=== PATIENT | male | born 1965 | race Caucasian/White ===

== ENCOUNTER 2023-01-20 13:23 | Emergency (ER) | payer OTHER, SELFPAY ==
[2023-01-20 13:34] VITALS: BP 128/78; PULSE 68; RESP 20; TEMP 36.8; O2SAT 99; BMI 26.7
[2023-01-20] MEDS: ONDANSETRON 4 MG RAPDIS TABLET SL (14:02)
[2023-01-20 14:17] LABS: SARS-CoV-2 Ag POSITIVE (NEGATIVE)
--- NOTE | 2023-01-20 14:26 | ED.GENADUL1 ---
HPI - General Adult General Chief complaint: Nausea/Vomiting/Diarrhea Stated complaint: NAUSEA Time Seen by Provider: 01/20/23 13:35 Source: patient Mode of arrival: walk-in History of Present Illness HPI narrative: Patient presents with flu-like symptoms. He developed congestion, headache and body aches 3-4 days. Neg covid at symptoms onset. Developed nausea and vomiting yesterday. Cold symptoms have improved. Related Data Home Medications Medication Instructions Recorded Confirmed No Known Home Medications 01/20/23 01/20/23 Previous Rx's Medication Instructions Recorded ondansetron 4 mg disintegrating 4 mg PO Q6H PRN nausea and 01/20/23 tablet vomiting #20 tabs Allergies Allergy/AdvReac Type Severity Reaction Status Date / Time Penicillins Allergy Severe Verified 01/20/23 13:39 Exam Narrative Exam Narrative: Nurses notes and vital signs reviewed and patient is not hypoxic. AFEBRILE General: Well-appearing and in no apparent distress. Skin: Warm, dry, no pallor noted. No rash. Head: Normocephalic, atraumatic. Neck: Supple, non-tender. No meningismus. No cervical lymphadenopathy. Eye: Pupils are equal, round and EOMI. No scleral icterus. Ears, Nose, Mouth, and Throat: TM are clear, no posterior oropharynx erythema or nasal mucosal hypertrophy, uvula is mid-line Oral mucosa is moist Cardiovascular: Regular Rate and Rhythm without murmur, gallop or rub. Respiratory: No accessory muscle use or respiratory distress. Lungs are clear to auscultation, no wheezing, rales or rhonchi GI: Abdomen is soft, non-distended. Normal bowel sounds. No tenderness to palpation. No rebound, guarding, or rigidity noted. Neurological: A&O x4. No cranial nerve dysfunction observed. No truncal ataxia. Moves all extremities. Sensation intact. Psychiatric: Cooperative and interactive. Normal mood and affect. Constitutional Vital Signs, click to edit/add: Last Vital Signs Temp 98.3 F 01/20/23 13:34 Pulse 68 01/20/23 13:34 Resp 20 01/20/23 13:34 BP 128/78 01/20/23 13:34 Pulse Ox 99 01/20/23 13:34 O2 Del Method Room Air 01/20/23 13:34 Course Vital Signs Vital signs: Vital Signs Temperature 98.3 F 01/20/23 13:34 Pulse Rate 68 01/20/23 13:34 Respiratory Rate 20 01/20/23 13:34 Blood Pressure 128/78 01/20/23 13:34 Pulse Oximetry 99 01/20/23 13:34 Oxygen Delivery Method Room Air 01/20/23 13:34 Temperature 98.3 F 01/20/23 13:34 Pulse Rate 68 01/20/23 13:34 Respiratory Rate 20 01/20/23 13:34 Blood Pressure 128/78 01/20/23 13:34 Pulse Oximetry 99 01/20/23 13:34 Oxygen Delivery Method Room Air 01/20/23 13:34 Medical Decision Making MDM Narrative Medical decision making narrative: tested positive for Covid. He was given Zofran in the ED and discharged home with a prescription for more Zofran. Patient advised to rest, stay at home, practice social distancing, take Motrin and Tylenol for pain and fever if not allergic, stay well hydrated with Gatorade or similar drinks if vomiting or eat as tolerated if not and take any meds as prescribed. Reviewed reasons to return including rapid increase in respiratory rate, shortness of breath, confusion, inability to keep down sips of swallowed liquids for more than 24 hours. Asked patient to encourage any ill contacts to stay home and practice similar advice. Lab Data Labs: Lab Results 01/20/23 Range/Units 14:00 SARS-CoV-2 (PCR) Positive A (NEGATIVE) Discharge Plan Discharge Chief Complaint: Nausea/Vomiting/Diarrhea Clinical Impression: COVID, Nausea & vomiting Patient Disposition: Home, Self-Care Time of Disposition Decision: 14:25 Prescriptions / Home Meds: New ondansetron 4 mg tablet,disintegrating 4 mg PO Q6H PRN (Reason: nausea and vomiting) Qty: 20 0RF No Action No Known Home Medications Instructions: Acute Nausea and Vomiting (ED), COVID-19 (Coronavirus Disease 2019) (ED) Stand Alone Forms: Portal Instructions Referrals: Physician,Non-Staff, MD [Primary Care Provider] - 1 week
== END 2023-01-20 14:44 | disposition home or self-care (01) ==
PROVIDERS: Emergency Provider Emergency Medicine
DX: R11.2 Nausea with vomiting, unspecified (principal); U07.1 COVID-19
CPT/HCPCS: 87811; 99283

== ENCOUNTER 2023-04-27 16:02 | Emergency (ER) | payer OTHER, SELFPAY ==
--- OUTSIDE RECORDS SUMMARY | 2023-04-27 16:12 | XMS_ITS | CCD ---
Author Organization [facility] Care Team Providers Care Recreation Director Name Role Phone VIPIN TORRES Unavailable Unavailable KLEPACZ, EBENEZER Rawls Admitting Unavailable KLEAPURVA, EBENEZER Rawls Attending Unavailable CHRISTELLE MUNIZ Referring Unavailable ROGER WAGNER Primary Care Unavailable YOKO BURRIS Consulting Unavailable YOKO BURRIS Admitting Unavailable YOKO BURRIS Attending Unavailable FAWWAD, TANG Primary Care Unavailable MARKER, DR AGUAYO Consulting Unavailable MARKER, DR AGUAYO Admitting Unavailable MARKER, DR AGUAYO Attending Unavailable REQUEST, DR DAVIS LISTED Primary Care UnavailGlo Bryant Consulting Unavailable FAWWAD, TANG Primary Care Unavailable FAWWAD, TANG Admitting Unavailable FAWWAD, TANG Attending Unavailable FAWWAD, TANG Admitting Unavailable FAWWAD, TANG Attending Unavailable FAWWAD, TANG Primary Care Unavailable FAWWAD, TANG Admitting Unavailable FAWWAD, TANG Primary Care Unavailable FAWWAD, TANG Attending Unavailable FAWWAD, TANG Admitting Unavailable SELENE, DR IBAN Rawls Consulting Unavailable FAWWAD, TANG Attending Unavailable FAWWAD, TANG Primary Care Unavailable FAWWAD, TANG Consulting Unavailable FAWWAD, TANG Admitting Unavailable FAWWAD, TANG Attending Unavailable FAWWAD, TANG Consulting Unavailable FAWWAD, TANG Primary Care Unavailable Allergies Allergy Classification Reported Allergen(s) Allergy Type Date of Onset Reaction(s) Facility (1 source) Penicillin Drug Allergy 05-30-2018 [facility] Repository (2 sources) Penicillins Drug allergy (disorder) 10-29-2015 [facility] Repository Problems Active Problems Problem Classification Problem Date Documented Date Episodic/Chronic Abdominal pain (3 sources) Unspecified abdominal pain; Translations: [UNSPECIFIED ABDOMINAL PAIN] Onset: 04-28-2021 Episodic Calculus of urinary tract (4 sources) Calculus of kidney; Translations: [CALCULUS OF KIDNEY] Onset: 05-23-2021 Episodic Other aftercare (1 source) Other fruit or nut picker (current) drug therapy; Translations: [OTH SENIOR CARE CURRENT DRUG THERAPY] Onset: 04-29-2021 Episodic Spondylosis; intervertebral disc disorders; other back problems (2 sources) Other intervertebral disc degeneration, lumbosacral region; Translations: [Other intervertebral disc degeneration, lumbar region] Onset: 01-06-2021 Chronic Sprains and strains (1 source) Strain of muscle, fascia and tendon of lower back, initial encounter; Translations: [Strain of muscle, fascia and tendon of lower back, initial encounter] Onset: 02-12-2018 Episodic Substance-related disorders (1 source) Nicotine dependence, cigarettes, uncomplicated; Translations: [NICOTINE DEPEND CIGARETTES UNCOMP] Onset: 04-29-2021 Chronic Unclassified (2 sources) LOW BACK PAIN, UNSPECIFIED; Translations: [LOW BACK PAIN, UNSPECIFIED] Onset: 01-06-2021 Viral infection (1 source) Viral infection, unspecified; Translations: [VIRAL INFECTION UNSPECIFIED] Onset: 04-29-2021 Episodic Past or Other Problems Problem Classification Problem Date Documented Da te Episodic/Chronic Spondylosis; intervertebral disc disorders; other back problems (2 sources) Radiculopathy, lumbar region; Translations: [Lumbago with sciatica, right side] Onset: 01-06-2021 Episodic Unclassified (1 source) LOW BACK PAIN, UNSPECIFIED; Translations: [LOW BACK PAIN, UNSPECIFIED] Onset: 01-05-2021 Results Test Name Value Interpretation Reference Range Facility CT ABD/PELVIS WO CONon 05-23 CT ABD/PELVIS WO CON EXAMINATION: CT ABD/PELVIS WO CON HISTORY: Kidney stone ; bilateral lower abdominal pain, left flank pain COMPARISON: CT abdomen pelvis 01/15/2019 TECHNIQUE: Axial, Coronal, and Sagittal CT images of the abdomen and pelvis were created without IV contrast material. Dose reduction techniques were achieved by using automated exposure control and/or adjustment of mA and/or kV according to patient size and/or use of iterative reconstruction technique. FINDINGS: KIDNEY - RIGHT: Contains a nonobstructing 4 mm stone. URETER - RIGHT: No calcifications or abnormal dilation. KIDNEY - LEFT: Several nonobstructing stones within inferior pole, largest is 7 mm. URETER - LEFT: No calcifications or abnormal dilation. URINARY BLADDER: No calculus, visible focal wall thickening, or lesion. LUNG BASES: No visible pulmonary or pleural disease. LIVER: No enlargement, atrophy, abnormal density, or significant focal lesion. BILIARY: No visible dilatation or calcification. PANCREAS: No lesion, fluid collection, ductal dilatation, or atrophy. SPLEEN: No enlargement or focal lesion. ADRENALS: No mass or enlargement. BOWEL/MESENTERY: No visible mass, obstruction, or bowel wall thickening. Normal appendix. AORTA/VASCULAR: No aneurysm. RETROPERITONEUM: No mass or adenopathy. LYMPH NODES: No adenopathy. PELVIC ORGANS: No visible mass. Pelvic organs appropriate for patient age. ABDOMINAL WALL: No mass or hernia. BONES: L5-S1 marked degenerative disc disease. No bony lesion or fracture. OTHER: Negative. IMPRESSION: 1. Bilateral nonobstructing nephrolithiasis. No acute findings. 2. No acute or suspicious bowel findings. 3. L5-S1 marked degenerative disc disease. Electronically authenticated by: IBAN MORTON Date: 2021-05-23 11:44 Normal [facility] LEAD,ADULTon 04-30-2021 Lead, Blood (Adult) 5 ug/dL Critically high 0-4 [facility] Comment on above: Result Comment: Anal ysis by inductively coupled plasma/mass spectrometry (ICP/MS) Environmental Exposure: WHO Recommendation <20 Occupational Exposure: OSHA Lead Std 40 MIGUEL A 30 . Detection Limit = 1 Performed By: #### L EADA #### [facility] [address] [place] [address] Dr. Kena Peterson CBC AUTO DIFFon 04-28-2021 BASO # 0.0 103/ul Normal 0.0-0.1 [facility] Comment on above: Performed By: #### C BC #### [facility] [address] [place] [address] Dr. Kena Peterson Basophils/100 WBC (Bld) 0.5 % Normal 0.2-2.0 [facility] Comment on above: Performed By: #### C BC #### [facility] [address] [place] [address] Dr. Kena Peterson EO # 0.4 103/ul Normal 0.0-0.7 [facility] Comment on above: Performed By: #### C BC #### [facility] [address] [place] [address] Dr. Kena Peterson Eosinophils/100 WBC (Bld) 4.5 % Normal 0.9-7.0 [facility] Comment on above: Performed By: #### C BC #### [facility] [address] [place] [address] Dr. Kena Peterson Erythrocyte distribution width (RBC) [Ratio] 12.2 % Normal 11.0-15.0 [facility] Comment on above: Performed By: #### C BC #### [facility] [address] [place] [address] Dr. Kena Peterson Hematocrit (Bld) [Volume fraction] 40.2 % Critically low 42.0-54.0 [facility] Comment on above: Performed By: #### C BC #### [facility] [address] [place] [address] Dr. Kena Peterson Hemoglobin (Bld) [Mass/Vol] 13.3 g/dL Critically low 14.0-18.0 [facility] Comment on above: Performed By: #### C BC #### [facility] [address] [place] [address] Dr. Kena Peterson IG # 0.02 10e3/ul Normal 0.00-0.03 [facility] Comment on above: Performed By: #### C BC #### [facility] [address] [place] [address] Dr. Kena Peterson IG % 0.2 % Normal 0.0-0.5 [facility] Comment on above: Performed By: #### C BC #### [facility] [address] [place] [address] Dr. Kena Peterson LYMPH # 2.3 103/ul Normal 1.2-3.8 [facility] Comment on above: Performed By: #### C BC #### [facility] [address] [place] [address] Dr. Kena Peterson Lymphocytes/100 WBC (Bld) 26.8 % Normal 20.5-60.0 [facility] Comment on above: Performed By: #### C BC #### [facility] [address] [place] [address] Dr. Kena Peterson MANUAL DIFF REQ NO Normal [facility] Comment on above: Performed By: #### C BC #### [facility] [address] [place] [address] Dr. Kena Peterson MCH (RBC) [Entitic mass] 29.3 pg Normal 25.9-34.0 [facility] Comment on above: Performed By: #### C BC #### [facility] [address] [place] [address] Dr. Kena Peterson MCHC (RBC) [Mass/Vol] 33.1 g/dL Normal 29.9-35.2 [facility] Comment on above: Performed By: #### C BC #### [facility] [address] [place] [address] Dr. Kena Peterson MCV (RBC) [Entitic vol] 88.5 fL Normal 80.0-94.0 [facility] Comment on above: Performed By: #### C BC #### [facility] [address] [place] [address] Dr. Kena Peterson MONO # 0.7 103/ul Normal 0.3-0.8 [facility] Comment on above: Performed By: #### C BC #### [facility] [address] [place] [address] Dr. Kena Peterson Monocytes/100 WBC (Bld) 7.7 % Normal 1.7-12.0 [facility] Comment on above: Performed By: #### C BC #### [facility] [address] [place] [address] Dr. Kena Peterson NEUT # 5.1 103/ul Normal 1.4-6.5 [facility] Comment on above: Performed By: #### C BC #### [facility] [address] [place] [address] Dr. Kena Peterson Neutrophils/100 WBC (Bld) 60.3 % Normal 43.0-75.0 [facility] Comment on above: Performed By: #### C BC #### [facility] [address] [place] [address] Dr. Kena Peterson Platelet mean volume (Bld) [Entitic vol] 9.9 fL Normal 9.5-13.5 [facility] Comment on above: Performed By: #### C BC #### [facility] [address] [place] [address] Dr. Kena Peterson PLT 215 103/ul Normal 150-450 [facility] Comment on above: Performed By: #### C BC #### [facility] [address] [place] [address] Dr. Kena Peterson RBC 4.54 106/ul Critically low 4.70-6.10 [facility] Comment on above: Performed By: #### C BC #### [facility] [address] [place] [address] Dr. Kena Peterson WBC 8.4 103/ul Normal 4.0-11.0 [facility] Comment on above: Performed By: #### C BC #### [facility] [address] [place] [address] Dr. Kena Peterson ER URINE PROFILEon 2 Bilirubin Ql (U) Negative Normal NEGATIVE [facility] Comment on above: Performed By: #### E RUR #### [facility] [address] [place] [address] Dr. Kena Peterson Clarity (U) CLEAR Normal CLEAR [facility] Comment on above: Performed By: #### E RUR #### [facility] [address] [place] [address] Dr. Kena Peterson Color (U) LT. YELLOW Normal YELLOW [facility] Comment on above: Performed By: #### E RUR #### [facility] [address] [place] [address] Dr. Kena SILVA A micrscopic examination will be performed if indicated. Normal [facility] Comment on above: Performed By: #### E RUR #### [facility] [address] [place] [address] Dr. Kena Peterson Glucose Ql (U) Negative Normal NEGATIVE [facility] Comment on above: Performed By: #### E RUR #### [facility] [address] [place] [address] Dr. Kena Peterson Hemoglobin Ql (U) Negative Normal NEGATIVE [facility] Comment on above: Performed By: #### E RUR #### [facility] [address] [address] [address] Kena Peterson Ketones Ql (U) Negative Normal NEGATIVE [facility] Comment on above: Performed By: #### E RUR #### [facility] [address] [place] [address] Dr. Kena Peterson LEUKOCYTES Negative Normal NEGATIVE [facility] Comment on above: Performed By: #### E RUR #### [facility] [address] [place] [address] Dr. Kena Peterson Nitrite Ql (U) Negative Normal NEGATIVE [facility] Comment on above: Performed By: #### E RUR #### [facility] [address] [place] [address] Dr. Kena Peterson pH (U) 7.0 [pH] Normal 5-9 [facility] Comment on above: Performed By: #### E RUR #### [facility] [address] [place] [address] Dr. Kena Peterson SPEC GRAVITY 1.010 Normal 1.005-<=1.025 [facility] Comment on above: Performed By: #### E RUR #### [facility] [address] [place] [address] Dr. Kena Peterson UA PROTEIN Negative Normal NEGATIVE/ TRACE [facility] Comment on above: Performed By: #### E RUR #### [facility] [address] [place] [address] Dr. Kena Peterson UR MICRO IND NOT INDICATED Normal [facility] Comment on above: Performed By: #### E RUR #### [facility] [address] [place] [address] Dr. Kena Peterson Urobilinogen Qn (U) 0.2 {Brian'U}/dL Normal 0.2 - 1. 0 [facility] Comment on above: Performed By: #### E RUR #### [facility] [address] [address] [address] Kena Peterson PROF CHEM 8 (BAS METB)on Anion gap [Moles/Vol] 11.4 mmol/L Normal [facility] Comment on above: Performed By: #### B MP #### [facility] [address] [address] [address] Kena Peterson Calcium [Mass/Vol] 8.8 mg/dL Normal 8.5-10.1 [facility] Comment on above: Performed By: #### B MP #### [facility] [address] [place] [address] Dr. Kena Peterson Chloride [Moles/Vol] 100 mmol/L Normal 98-107 [facility] Comment on above: Performed By: #### B MP #### [facility] [address] [place] [address] Dr. Kena Peterson CO2 [Moles/Vol] 31.9 mmol/L Critically high 22.0-30.0 [facility] Comment on above: Performed By: #### B MP #### [facility] [address] [place] [address] Dr. Kena Peterson Creatinine [Mass/Vol] 0.96 mg/dL Normal 0.66-1.25 [facility] Comment on above: Performed By: #### B MP #### [facility] [address] [place] [address] Dr. Kena Peterson EGFR-AF AFGHAN >60 Normal >=60 [facility] Comment on above: Performed By: #### B MP #### [facility] [address] [place] [address] Dr. Kena Peterson EGFR-NON AF AFGHAN >60 Normal >=60 [facility] Comment on above: Performed By: #### B MP #### [facility] [address] [place] [address] Dr. Kena Peterson Glucose [Mass/Vol] 101 mg/dL Normal 74-106 [facility] Comment on above: Performed By: #### B MP #### [facility] [address] [place] [address] Dr. Kena Peterson Potassium [Moles/Vol] 4.3 mmol/L Normal 3.4-5.0 [facility] Comment on above: Performed By: #### B MP #### [facility] [address] [place] [address] Dr. Kena Peterson Sodium [Moles/Vol] 139 mmol/L Normal 137-145 [facility] Comment on above: Performed By: #### B MP #### [facility] [address] [place] [address] Dr. Kena Peterson Urea nitrogen [Mass/Vol] 8.0 mg/dL Normal 7.0-18.0 [facility] Comment on above: Performed By: #### B MP #### [facility] [address] [place] [address] Dr. Kena Peterson Urea nitrogen/Creatinine [Mass ratio] 8.3 mg/mg Normal [facility] Comment on above: Performed By: #### B MP #### [facility] [address] [place] [address] Dr. Kena Peterson CBC AUTO DIFFon 01-12-2021 BASO # 0.0 103/ul Normal 0.0-0.1 [facility] Comment on above: Performed By: #### C BC #### [facility] [address] [place] [address] Dr. Kena Peterson Basophils/100 WBC (Bld) 0.4 % Normal 0.2-2.0 [facility] Comment on above: Performed By: #### C BC #### [facility] [address] [place] [address] Dr. Kena Peterson EO # 0.1 103/ul Normal 0.0-0.7 [facility] Comment on above: Performed By: #### C BC #### [facility] [address] [place] [address] Dr. Kena Peterson Eosinophils/100 WBC (Bld) 1.3 % Normal 0.9-7.0 [facility] Comment on above: Performed By: #### C BC #### [facility] [address] [place] [address] Dr. Kena Peterson Erythrocyte distribution width (RBC) [Ratio] 13.4 % Normal 11.0-15.0 [facility] Comment on above: Performed By: #### C BC #### [facility] [address] [place] [address] Dr. Kena Peterson Hematocrit (Bld) [Volume fraction] 41.1 % Critically low 42.0-54.0 [facility] Comment on above: Performed By: #### C BC #### [facility] [address] [place] [address] Dr. Kena Peterson Hemoglobin (Bld) [Mass/Vol] 13.5 g/dL Critically low 14.0-18.0 [facility] Comment on above: Performed By: #### C BC #### [facility] [address] [place] [address] Dr. Kena Peterson IG # 0.03 10e3/ul Normal 0.00-0.03 [facility] Comment on above: Performed By: #### C BC #### [facility] [address] [place] [address] Dr. Kena Peterson IG % 0.3 % Normal 0.0-0.5 [facility] Comment on above: Performed By: #### C BC #### [facility] [address] [place] [address] Dr. Kena Peterson LYMPH # 2.7 103/ul Normal 1.2-3.8 [facility] Comment on above: Performed By: #### C BC #### [facility] [address] [place] [address] Dr. Kena Peterson Lymphocytes/100 WBC (Bld) 29.4 % Normal 20.5-60.0 [facility] Comment on above: Performed By: #### C BC #### [facility] [address] [place] [address] Dr. Kena Peterson MANUAL DIFF REQ NO Normal [facility] Comment on above: Performed By: #### C BC #### [facility] [address] [place] [address] Dr. Kena Peterson MCH (RBC) [Entitic mass] 28.9 pg Normal 25.9-34.0 [facility] Comment on above: Performed By: #### C BC #### [facility] [address] [place] [address] Dr. Kena Peterson MCHC (RBC) [Mass/Vol] 32.8 g/dL Normal 29.9-35.2 [facility] Comment on above: Performed By: #### C BC #### [facility] [address] [place] [address] Dr. Kena Peterson MCV (RBC) [Entitic vol] 88.0 fL Normal 80.0-94.0 [facility] Comment on above: Performed By: #### C BC #### [facility] [address] [place] [address] Dr. Kena Peterson MONO # 0.6 103/ul Normal 0.3-0.8 [facility] Comment on above: Performed By: #### C BC #### [facility] [address] [place] [address] Dr. Kena Peterson Monocytes/100 WBC (Bld) 6.9 % Normal 1.7-12.0 [facility] Comment on above: Performed By: #### C BC #### [facility] [address] [place] [address] Dr. Kena Peterson NEUT # 5.7 103/ul Normal 1.4-6.5 [facility] Comment on above: Performed By: #### C BC #### [facility] [address] [place] [address] Dr. Kena Peterson Neutrophils/100 WBC (Bld) 61.7 % Normal 43.0-75.0 [facility] Comment on above: Performed By: #### C BC #### [facility] [address] [place] [address] Dr. Kena Peterson Platelet mean volume (Bld) [Entitic vol] 10.5 fL Normal 9.5-13.5 [facility] Comment on above: Performed By: #### C BC #### [facility] [address] [place] [address] Dr. Kena Peterson PLT 268 103/ul Normal 150-450 [facility] Comment on above: Performed By: #### C BC #### [facility] [address] [address] [address] Kena Peterson RBC 4.67 106/ul Critically low 4.70-6.10 [facility] Comment on above: Performed By: #### C BC #### [facility] [address] [address] [address] Kena Peterson WBC 9.2 103/ul Normal 4.0-11.0 [facility] Comment on above: Performed By: #### C BC #### [facility] [address] [place] [address] Dr. Kena Peterson PROF 14(COMP METB)on 021 Albumin [Mass/Vol] 3.9 g/dL Normal 3.5-5.0 [facility] Comment on above: Performed By: #### C MP #### [facility] [address] [place] [address] Dr. Kena Peterson Albumin/Globulin [Mass ratio] 1.0 {ratio} Normal [facility] Comment on above: Performed By: #### C MP #### [facility] [address] [place] [address] Dr. Kena Peterson ALP [Catalytic activity/Vol] 89 U/L Normal 38-126 [facility] Comment on above: Performed By: #### C MP #### [facility] [address] [place] [address] Dr. Kena Peterson ALT [Catalytic activity/Vol] 32 U/L Normal 21-72 [facility] Comment on above: Performed By: #### C MP #### [facility] [address] [place] [address] Dr. Kena Peterson Anion gap [Moles/Vol] 13.8 mmol/L Normal [facility] Comment on above: Performed By: #### C MP #### [facility] [address] [address] [address] Kena Peterson AST [Catalytic activity/Vol] 12 U/L Critically low 17-59 [facility] Comment on above: Performed By: #### C MP #### [facility] [address] [address] [address] Kena Peterson Bilirubin [Mass/Vol] 0.1 mg/dL Critically low 0.2-1.3 [facility] Comment on above: Performed By: #### C MP #### [facility] [address] [address] [address] Kena Peterson Calcium [Mass/Vol] 9.5 mg/dL Normal 8.4-10.2 [facility] Comment on above: Performed By: #### C MP #### [facility] [address] [address] [address] Kena Peterson Chloride [Moles/Vol] 107 mmol/L Normal 98-107 [facility] Comment on above: Performed By: #### C MP #### [facility] [address] [address] [address] Kena Peterson CO2 [Moles/Vol] 30.0 mmol/L Normal 22.0-30.0 [facility] Comment on above: Performed By: #### C MP #### [facility] [address] [address] [address] Kena Peterson Creatinine [Mass/Vol] 0.74 mg/dL Normal 0.66-1.25 [facility] Comment on above: Performed By: #### C MP #### [facility] [address] [address] [address] Kena Peterson EGFR-AF AFGHAN >60 Normal >=60 [facility] Comment on above: Performed By: #### C MP #### [facility] [facility] [address] [address] [address] Kena Peterson EGFR-NON AF AFGHAN >60 Normal >=60 [facility] Comment on above: Performed By: #### C MP #### [facility] [address] [address] [address] Kena Peterson Globulin (S) [Mass/Vol] 3.9 g/dL Normal [facility] Comment on above: Performed By: #### C MP #### [facility] [address] [address] [address] Kena Peterson Glucose [Mass/Vol] 144 mg/dL Critically high 74-106 [facility] Comment on above: Performed By: #### C MP #### [facility] [address] [address] [address] Kena Peterson Potassium [Moles/Vol] 3.8 mmol/L Normal 3.4-5.0 [facility] Comment on above: Performed By: #### C MP #### [facility] [address] [address] [address] Kena Peterson Protein [Mass/Vol] 7.8 g/dL Normal 6.1-8.2 [facility] Comment on above: Performed By: #### C MP #### [facility] [address] [address] [address] Kena Peterson Sodium [Moles/Vol] 147 mmol/L Critically high 137-145 [facility] Comment on above: Performed By: #### C MP #### [facility] [address] [address] [address] Kena Peterson Urea nitrogen [Mass/Vol] 9.0 mg/dL Normal 9.0-20.0 [facility] Comment on above: Performed By: #### C MP #### [facility] [address] [address] [address] Kena Peterson Urea nitrogen/Creatinine [Mass ratio] 12.2 mg/mg Normal [facility] Comment on above: Performed By: #### C MP #### [facility] [address] LSPINE WO CONon CT LSPINE WO CON EXAM: CT LSPINE WO CON 01/04/2021 11:31 PM EST OH001 CLINICAL STATEMENT: DORSALGIA, UNSPECIFIED COMPARISON: No prior studies are available at the time of dictation. TECHNIQUE: Helically acquired images were obtained of the lumbar spine without contrast. AEC is utilized. 2D reformatted images were reviewed FINDINGS: Multilevel degenerative changes are noted. Broad-based posterior asymmetric disc bulges at L2-L3 and L3 to L4 causing mild to moderate central canal and bilateral neural foraminal stenosis. Broad-based posterior disc protrusion at L4 L5 and L5-S1 causing moderate central canal and severe bilateral foraminal stenosis. Intervertebral disc space narrowing and vacuum phenomenon at L5-S1. Hypertrophic changes are noted of the posterior elements. There is normal anatomic alignment. There is no evidence of fracture or dislocation. There is no significant osseous narrowing of the central canal. There are no discrete paraspinal masses or collections. IMPRESSION: Multilevel degenerative changes. Broad-based posterior asymmetric disc bulges at L2-L3 and L3 to L4 causing mild to moderate central canal and bilateral neural foraminal stenosis. Broad-based posterior disc protrusion at L4 L5 and L5-S1 causing moderate central canal and severe bilateral foraminal stenosis. Intervertebral disc space narrowing and vacuum phenomenon at L5-S1. No acute fracture or dislocation FOLLOW-UP: Follow-up as clinically indicated. Electronically authenticated by: GLO ANGELA Date: 2021-01-05 00:59 Normal [facility] ARTERIAL BLOOD GAS W/COOXon 05-30-2018 BASE EXCESS 1 mmol/L Normal -2-3 [facility] Comment on above: Performed By: #### 4 0055 #### [facility] [address] [place] [address], [facility] COHB 1.9 % High 0.0-1.5 [facility] Comment on above: Performed By: #### 4 0055 #### [facility] [address] [place] [address], [facility] DELIVERY SYSTEMS VENTILATOR Normal [facility] Comment on above: Performed By: #### 4 0055 #### [facility] [address] [place] [address], [facility] FIO2 100 % Normal [facility] Comment on above: Performed By: #### 4 0055 #### [facility] [address] [place] [address], [facility] HCO3 (Bld) [Moles/Vol] 27 mmol/L Normal 21-28 [facility] Comment on above: Performed By: #### 4 0055 #### [facility] [address] [place] [address], [facility] METHB 0.9 % Normal 0.0-1.5 [facility] Comment on above: Performed By: #### 4 0055 #### [facility] [address] [place] [address], [facility] MIN VOLUME 7.5 Normal [facility] Comment on above: Performed By: #### 4 0055 #### [facility] [address] [place] [address], [facility] MODALITY AC-ASSIST CONTROL Normal [facility] Comment on above: Performed By: #### 4 0055 #### [facility] [address] [place], [place] [id number] [place] [address] Oxygen (Bld) [Partial pressure] 75 mm[Hg] Low 83-108 [facility] Comment on above: Performed By: #### 4 0055 #### [facility] [address] [place] [address], [facility] Oxygen saturation in Blood 93.1 % Low 94.0-97.0 [facility] Comment on above: Performed By: #### 4 0055 #### [facility] [address] [place] [address], [facility] PCO2 47 mmHg High 35-45 [facility] Comment on above: Performed By: #### 4 0055 #### [facility] [address] [place] [address], [facility] PEEP 8.0 CMH20 Normal [facility] Comment on above: Performed By: #### 4 5 #### [facility] [address] [place], [place] [id number] [place] [address] pH (Bld) 7.36 [pH] Normal 7.35-7.45 [facility] Comment on above: Result Comment: BRADFORD LIND NOTE: Effective 04/09/18, reference ranges for Respiratory GEM analyzers running arterial blood have been updated to reflect the sewing teacher's published reference ranges. Performed By: #### 4 0055 #### [facility] [address] [place] [address], [facility]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
[2023-04-27 16:15] VITALS: BP 126/91; PULSE 99; RESP 18; TEMP 36.6; O2SAT 99; BMI 24.9
--- NOTE | 2023-04-27 16:36 | ED_ITS ---
HPI - Abdominal Pain General Chief Complaint: Abdominal Pain Stated Complaint: Flank Pain Time Seen by Provider: 04/27/23 16:15 Source: patient Mode of arrival: walk-in History of Present Illness HPI narrative: Patient presents with right flank and right abdominal pain that began about a week ago. He said that the pain was worse today and since this morning he is having trouble passing urine. No fever or chills. No skin rash. Nausea and an episode of vomiting but no diarrhea. No relief with OTC meds at home. He has extensive history of kidney stones and last saw Dr Rojas and had renal stenting, he told me. Related Data Previous Rx's ?Medication ?Instructions ?Recorded nabumetone 750 mg tablet 750 mg PO BID PRN pain #20 tabs 04/27/23 Allergies Allergy/AdvReac Type Severity Reaction Status Date / Time Penicillins Allergy Severe Verified 01/20/23 13:39 Exam Narrative Exam Narrative: Nurses notes and vital signs reviewed and patient is not hypoxic. afebrile General: Well-appearing and in no apparent distress. Skin: Warm, dry, no pallor noted. No rash. Head: Normocephalic, atraumatic. Neck: Supple, non-tender. Eye: Pupils are equal, round and EOMI. No scleral icterus. Ears, Nose, Mouth, and Throat: Oral mucosa is moist Cardiovascular: Regular Rate and Rhythm without murmur, gallop or rub. Respiratory: No accessory muscle use or respiratory distress. Lungs are clear to auscultation, no wheezing, rales or rhonchi Back: Right CVA tenderness Musculoskeletal: normal ROM GI: Abdomen is soft, non-distended. Normal bowel sounds. Right abdominal tenderness to palpation. No rebound, guarding, or rigidity noted. Neurological: A&O x4. No cranial nerve dysfunction observed. No truncal ataxia. Moves all extremities. Sensation intact. Psychiatric: Cooperative and interactive. Normal mood and affect. Constitutional Vital Signs, click to edit/add: Last Vital Signs Temp 97.9 F 04/27/23 16:15 Pulse 99 H 04/27/23 16:15 Resp 18 04/27/23 16:15 BP 126/91 04/27/23 16:15 Pulse Ox 99 04/27/23 16:15 O2 Del Method Room Air 04/27/23 16:15 Course Vital Signs Vital signs: Vital Signs Temperature 97.9 F 04/27/23 16:15 Pulse Rate 99 H 04/27/23 16:15 Respiratory Rate 18 04/27/23 16:15 Blood Pressure 126/91 04/27/23 16:15 Pulse Oximetry 99 04/27/23 16:15 Oxygen Delivery Method Room Air 04/27/23 16:15 Temperature 97.9 F 04/27/23 16:15 Pulse Rate 99 H 04/27/23 16:15 Respiratory Rate 18 04/27/23 16:15 Blood Pressure 126/91 04/27/23 16:15 Pulse Oximetry 99 04/27/23 16:15 Oxygen Delivery Method Room Air 04/27/23 16:15 MDM - Abdominal Pain MDM Narrative Medical decision making narrative: Peripheral IV established and blood drawn and sent for testing. The patient was also ordered to have his urine sent for testing. He received normal saline IV fluid, IV Toradol and IV Dilaudid for pain. CBC normal. CMP normal. Lipase negative. He was not able to give us a urine sample. CT revealed nonobstructing 3 mm right renal calculus and multiple left-sided nonobstructing renal calculi measuring between 4 and 8 mm. No ureteral stones. No hydronephrosis or hydroureter. Results explained to the patient he was discharged home with recommendation to follow-up with urology. He was prescribed Relafen for outpatient use Lab Data Attestation: I reviewed the patient's lab results. Labs: Lab Results 04/27/23 Range/Units 17:00 WBC 8.1 (4.0-11.0) 10^3/uL RBC 4.39 L (4.70-6.10) 10^6/uL Hgb 12.8 L (14.0-18.0) g/dL Hct 39.4 L (42.0-54.0) % MCV 89.7 (80.0-94.0) fL MCH 29.2 (25.9-34.0) pg MCHC 32.5 (29.9-35.2) g/dL RDW 12.7 (11.0-15.0) % Plt Count 251 (150-450) 10^3/uL MPV 10.0 (9.5-13.5) fL Neut % (Auto) 67.0 (43.0-75.0) % Lymph % (Auto) 24.0 (20.5-60.0) % Wythe % (Auto) 6.3 (1.7-12.0) % Eos % (Auto) 2.0 (0.9-7.0) % Baso % (Auto) 0.5 (0.2-2.0) % Neut # (Auto) 5.4 (1.4-6.5) 10^3/uL Lymph # (Auto) 1.9 (1.2-3.8) 10^3/uL Wythe # (Auto) 0.5 (0.3-0.8) 10^3/uL Eos # (Auto) 0.2 (0.0-0.7) 10^3/uL Baso # (Auto) 0.0 (0.0-0.1) 10^3/uL Abs Immat Gran (auto) 0.02 (0.00-0.03) 10^3/uL Imm/Tot Granulo (auto) 0.2 (0.0-0.5) % Sodium 135 L (136-145) mmol/L Potassium 4.0 (3.5-5.1) mmol/L Chloride 99 (98-107) mmol/L Carbon Dioxide 30.1 (21.0-32.0) mmol/L Anion Gap 9.9 BUN 10.0 (7.0-18.0) mg/dL Creatinine 0.88 (0.70-1.30) mg/dL Est GFR ( Amer) >60 (>=60) Est GFR (Non-Af Amer) >60 (>=60) BUN/Creatinine Ratio 11.4 Glucose 138 H (74-106) mg/dL Calcium 9.2 (8.5-10.1) mg/dL Total Bilirubin 0.2 (0.2-1.0) mg/dL AST 17 (15-37) U/L ALT 22 (16-63) U/L Alkaline Phosphatase 98 (46-116) U/L Total Protein 7.8 (6.4-8.2) g/dL Albumin 3.7 (3.4-5.0) g/dL Globulin 4.1 g/dL Albumin/Globulin Ratio 0.9 Lipase 21.0 (16.0-77.0) U/L Imaging Data CT scan - abdomen: Attestation: I have reviewed the pertinent imaging results. Radiologist's impression: ITS Impressions Abdomen/Pelvis CT 04/27/23 17:28 IMPRESSION: Bilateral nonobstructive renal calculi measuring up to 8 mm on the left. Electronically authenticated by: ALIYAH GARRIDO Date: 04/27/2023 18:17 Discharge Plan Discharge Stand Alone Forms: Portal Instructions Chief Complaint: Abdominal Pain Clinical Impression: Calculus of kidney Patient Disposition: Home, Self-Care Time of Disposition Decision: 18:24 Prescriptions / Home Meds: New nabumetone 750 mg tablet 750 mg PO BID PRN (Reason: pain) Qty: 20 0RF Print Language: Belizean Instructions: Kidney Stones (ED) Referrals: Physician,Non-Staff, MD [Primary Care Provider] - 1 week
[2023-04-27 17:09] LABS: Basophils Percent Auto 0.5 % (0.2-2.0); Eosinophils Absolute Auto 0.2 10^3/uL (0.0-0.7); Hematocrit 39.4 % (42.0-54.0); Hemoglobin 12.8 g/dL (14.0-18.0); Immature Granulocytes Abs Auto 0.02 10^3/uL (0.00-0.03); Immature Granulocytes Pct Auto 0.2 % (0.0-0.5); Lymphocytes Absolute Auto 1.9 10^3/uL (1.2-3.8); Mean Corpuscular HGB Conc 32.5 g/dL (29.9-35.2); Mean Corpuscular Hemoglobin 29.2 pg (25.9-34.0); Mean Corpuscular Volume 89.7 fL (80.0-94.0); Monocytes Absolute Auto 0.5 10^3/uL (0.3-0.8); Monocytes Percent Auto 6.3 % (1.7-12.0); Neutrophils Absolute Auto 5.4 10^3/uL (1.4-6.5); Platelet Count 251 10^3/uL (150-450); Red Blood Count 4.39 10^6/uL (4.70-6.10); Red Cell Distribution Width 12.7 % (11.0-15.0); White Blood Count 8.1 10^3/uL (4.0-11.0)
[2023-04-27] MEDS: KETOROLAC TROMETHAMINE 30 MG/ML VIAL IVP (17:13)
[2023-04-27] MEDS: ONDANSETRON PF 4 MG/2 ML VIAL IV (17:13)
[2023-04-27] MEDS: HYDROMORPHONE HCL 0.5 MG/0.5 ML SYRINGE INJ (17:13)
[2023-04-27] MEDS: 0.9 % SODIUM CHLORIDE 1,000 ML 999 ML IV (17:14)
--- NOTE | 2023-04-27 17:28 | CT_ITS ---
[facility] [place] [id number] Patient Name: BHUPINDER ZIMMER MRN: [id number] date: 1965 Sex: M Assigned Patient Location: ER Current Patient Location: ER Accession/Order Number: [id number] Exam Date: 04/27/2023 17:24 Report Date: 04/27/2023 18:17 At the request of: JACK POTTER Procedure: CT abdomen pelvis wo con EXAMINATION: CT abdomen pelvis wo con, 04/27/2023 2:24 PM PDT HISTORY: right flank abd pain COMPARISON: 05/23/2021 TECHNIQUE: CT scan of the abdomen and pelvis was performed without IV contrast. CT dose reduction technique was used, including Automated Exposure Control. FINDINGS: Lung: No significant finding. Liver: No significant finding. Gallbladder: No significant finding. Spleen: No significant finding. Pancreas: No significant finding. Adrenal glands: No significant finding. Kidneys, ureters and bladder: There are 2 left-sided renal calculi adjacent to each other measuring approximately 7 and 8 mm each. Additional nonobstructive left sided renal calculus adjacent to these calculi measuring 4 mm. No hydronephrosis. Nonobstructive 3 mm right renal calculus. Bowel: No evidence of bowel obstruction. Normal appendix. Peritoneum/retroperitoneum: No significant finding. Lymph nodes: No significant finding. Vessels: Mild scattered atherosclerotic calcification. Body wall: No significant finding. Reproductive: No significant finding. Bones: No significant finding. CT/CT abdomen pelvis wo con IMPRESSION: Bilateral nonobstructive renal calculi measuring up to 8 mm on the left. Electronically authenticated by: ALIYAH GARRIDO Date: 04/27/2023 18:17
[2023-04-27 17:49] LABS: Alanine Aminotransferase 22 U/L (16-63); Albumin Globulin Ratio 0.9; Albumin Level 3.7 g/dL (3.4-5.0); Alkaline Phosphatase 98 U/L (46-116); Anion Gap 9.9; Aspartate Amino Transferase 17 U/L (15-37); BUN Creatinine Ratio 11.4; Bilirubin Total 0.2 mg/dL (0.2-1.0); Calcium 9.2 mg/dL (8.5-10.1); Carbon Dioxide 30.1 mmol/L (21.0-32.0); Chloride 99 mmol/L (98-107); Estimated GFR (African America >60 (>=60); Estimated GFR (Non-African Ame >60 (>=60); Globulin 4.1 g/dL; Glucose 138 mg/dL (74-106); Sodium 135 mmol/L (136-145); Total Protein 7.8 g/dL (6.4-8.2)
== END 2023-04-27 18:39 | disposition home or self-care (01) ==
PROVIDERS: Emergency Provider Emergency Medicine
DX: N20.0 Calculus of kidney (principal); Z87.442 Personal history of urinary calculi
CPT/HCPCS: 36415; 74176; 80053; 83690; 85025; 96374; 96375; 99284; J1170

== ENCOUNTER 2023-06-17 23:58 | Emergency (ER) | payer OTHER, SELFPAY ==
[2023-06-18] VITALS (49 sets, daily range): BP systolic 142–176; BP diastolic 88–127; PULSE 52–108; TEMP 36.6; O2SAT 97–100; BMI 24.5
--- OUTSIDE RECORDS SUMMARY | 2023-06-18 00:30 | XMS_ITS | CCD ---
Author Organization [facility] Care Team Providers Care Renal Dialysis Rn Name Role Phone VIPIN TORRES Unavailable Unavailable EBENEZER WILSON Admitting Unavailable EBENEZER WILSON Attending Unavailable CHRISTELLE MUNIZ Referring Unavailable ROGER [...] TANG Attending Unavailable FAWWAD, TANG Admitting Unavailable DR IBAN MORTON Consulting Unavailable FAWWAD, TANG Attending Unavailable FAWWAD, TANG Primary Care Unavailable FAWWAD, TANG Consulting Unavailable FAWWAD, TANG Admitting Unavailable FAWWAD, TANG Attending Unavailable FAWWAD, TANG Consulting Unavailable FAWWAD, TANG Primary Care Unavailable Loco SORIANO Attending Unavailable NO PCP, NO PCP Primary Care Unavailable MATEO BANDA Referring Unavailable NO PCP, NO PCP Primary Care Unavailable NO PCP, NO PCP Primary Care Unavailable RAFA BURDEN Attending Unavailable NO PCP, NO PCP Primary Care Unavailable IBAN ADAME Attending Unavailable AMBER GALVEZ Admitting Unavailable NO PCP, NO PCP Primary Care Unavailable Allergies Allergy Classification Reported Allergen(s) Allergy Type Date of Onset Reaction(s) Facility (1 source) Penicillin Drug Allergy 05-30-2018 [facility] Repository (4 sources) Penicillins; Translations: [PENICILLINS] Drug allergy (disorder) 10-29-2015 [facility] Repository (2 sources) Ibuprofen; Translations: [IBUPROFEN] Drug Allergy 12-17-2015 [facility] Repository Problems Active Problems Problem Classification Problem Date Documented Da te Episodic/Chronic Abdominal pain (4 sources) Unspecified abdominal pain; Translations: [Abdominal pain] Onset: 04-28-2021 Episodic Calculus of urinary tract (4 sources) Calculus of kidney; Translations: [CALCULUS OF KIDNEY] Onset: 05-23-2021 Episodic Cardiac dysrhythmias (1 source) Tachycardia, unspecified; Translations: [Tachycardia, unspecified] Onset: 05-22-2023 Episodic Fluid and electrolyte disorders (1 source) Hypokalemia; Translations: [Hypokalemia] Onset: 05-22-2023 Episodic Nausea and vomiting (2 sources) Nausea with vomiting, unspecified; Translations: [Vomiting] Onset: 05-17-2023 Episodic Other aftercare (1 source) 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; Translations: [OTH LONG-TERM CURRENT DRUG THERAPY] Onset: 04-29-2021 Episodic Other connective tissue disease (1 source) Cramp and spasm; Translations: [Cramp and spasm] Onset: 05-22-2023 Episodic Other gastrointestinal disorders (1 source) Diarrhea Onset: 05-17-2023 Episodic Other screening for suspected conditions (not mental disorders or infectious disease) (1 source) Other specified abnormal findings of blood chemistry; Translations: [Other specified abnormal findings of blood chemistry] Onset: 05-22-2023 Episodic Spondylosis; intervertebral disc disorders; other back problems (3 sources) Other intervertebral disc degeneration, lumbosacral region; Translations: [Other intervertebral disc degeneration, lumbar region] Onset: 01-06-2021 Chronic Spondylosis; intervertebral disc disorders; other back problems (4 sources) Radiculopathy, lumbar region; Translations: [Lumbago with sciatica, right side] Onset: 01-06-2021 Episodic Sprains and strains (1 source) Strain of muscle, fascia and tendon of lower back, initial encounter; Translations: [Strain of muscle, fascia and tendon of lower back, initial encounter] Onset: 02-12-2018 Episodic Substance-related disorders (1 source) Nicotine dependence, cigarettes, uncomplicated; Translations: [NICOTINE DEPEND CIGARETTES UNCOMP] Onset: 04-29-2021 Chronic Substance-related disorders (1 source) Opioid use, unspecified with withdrawal; Translations: [Opioid use, unspecified with withdrawal] Onset: 05-17-2023 Episodic Unclassified (2 sources) LOW BACK PAIN, UNSPECIFIED; Translations: [LOW BACK PAIN, UNSPECIFIED] Onset: 01-06-2021 Unclassified (1 source) lower back pain that radiates down right leg x1 month Onset: 06-13-2023 Unclassified (1 source) Medical Screening Onset: 06-14-2023 Unclassified (1 source) Spasms Onset: 05-22-2023 Unclassified (1 source) EMS Onset: 05-17-2023 Viral infection (1 source) Viral infection, unspecified; Translations: [VIRAL INFECTION UNSPECIFIED] Onset: 04-29-2021 Episodic Past or Other Problems Problem Classification Problem Date Documented Da te Episodic/Chronic Unclassified (1 source) LOW BACK PAIN, UNSPECIFIED; Translations: [LOW BACK PAIN, UNSPECIFIED] Onset: 01-05-2021 Results Test Name Value Interpretation Reference Range Facility CT LUMBAR SPINE WO CONTon CT LUMBAR SPINE WO CONT CT LUMBAR SPINE WO CONT CLINICAL HISTORY: A 57-year-old male with the history of the low back pain and sciatica. TECHNIQUE: Multidetector spiral CT scan of the lumbar spine is performed without intravenous contrast administration. Multiplanar reconstruction images are reformatted. All CT scans at this facility use dose modulation, iterative reconstruction, and/or weight based dosing when appropriate to reduce radiation dose to as low as reasonably achievable. COMPARISON: Comparison is made with the CT scan of the abdomen and pelvis of 04/05/2022. FINDINGS: There is no evidence of fracture or acute bony pathology in the lumbar vertebrae. Posterior elements are intact. Sagittal and coronal reconstruction imaging reveals normal vertebral heights. There is no evidence of compression fracture, spondylolysis or spondylolisthesis. There are spondylotic and disc degenerative changes in the lumbar spine with osteophytes formation and reduction of disc spaces at L4-L5 and L5-S1. There are posterior osteophytes at L5-S1 with spinal stenosis and narrowing of the neural foramina bilaterally. Sagittal and axial images reveal no evidence of antonio disc herniation. Facet joints are intact. Both sacroiliac joints are intact. No significant paravertebral soft tissue abnormality seen. There are nonobstructing bilateral intrarenal calcific calculi. Vascular calcifications are seen. IMPRESSION: 1. No evidence of fracture, spondylolisthesis or acute bony pathology in the lumbar spine. 2. Spondylotic and disc degenerative changes in the lumbar spine with osteophytes formation and reduction of disc spaces at L4-L5 and L5-S1. There is a spinal stenosis with narrowing of the neural foramina at L5-S1. 3. No evidence of antonio disc herniation in the lumbar region. 4. Incidental note is made of bilateral nonobstructing intrarenal calcific calculi. Finalized by Bhavik Mcguire MD on 06/13/2023 3:31 PM Normal [facility] BASIC METABOLIC PANLon 05-21 Anion gap [Moles/Vol] 4 mmol/L Low 5-15 [facility] Comment on above: Performed By: #### C CHRISTINE [facility], 3040-3 #### [facility] ([id number]) [address] [place] [address] 26632 Calcium [Mass/Vol] 8.3 mg/dL Low 8.5-10.5 [facility] Comment on above: Performed By: #### C CHRISTINE [facility], 3040-3 #### [facility] ([id number]) [address] [place] [address] 68410 Chloride [Moles/Vol] 109 mmol/L Normal 98-109 [facility] Comment on above: Performed By: #### C CHRISTINE CMP, 3040-3 #### [facility] ([id number]) [address] [place] [address] 78146 CO2 [Moles/Vol] 23 mmol/L Normal 22-32 [facility] Comment on above: Performed By: #### C CHRISTINE [facility], 3040-3 #### [facility] ([id number]) [address] [place] [address] 54720 Creatinine [Mass/Vol] 0.86 mg/dL Normal 0.70-1.20 [facility] Comment on above: Result Comment: METH OD TRACEABLE TO IDMS STANDARD Performed By: #### C ZEE KING, 3 #### [facility] ([id number]) [address] [place] [address] 94801 eGFR (CKD-EPI) NON-RACE DEPENDENT >90 Normal >59 [facility] Comment on above: Result Comment: Reported eGFR is based on the CKD-EPI 2020 equation that does not use a race coefficient. Performed By: #### C ZEE KING, 3 #### [facility] ([id number]) [address] [place] [address] 35486 Glucose [Mass/Vol] 82 mg/dL Normal 65-99 [facility] Comment on above: Performed By: #### C CHRISTINE [facility], 3 #### [facility] ([id number]) [address] [place] [address] 75585 Potassium [Moles/Vol] 3.6 mmol/L Normal 3.5-5.0 [facility] Comment on above: Performed By: #### C ZEE KING, 3 #### [facility] ([id number]) [address] [place] [address] 91600 Sodium [Moles/Vol] 136 mmol/L Normal 134-146 [facility] Comment on above: Performed By: #### C ZEE KING, 3 #### [facility] ([id number]) [address] [place] [address] 73099 Urea nitrogen [Mass/Vol] 17 mg/dL Normal 5-23 [facility] Comment on above: Performed By: #### C BCA, CMP, 3040-3 #### [facility] ([id number]) [address] [place] [address] 77205 CBC AND AUTO DIFFon 05-22-19 24 ABSOLUTE BASOPHIL 0.1 X10E9/L Normal 0.0-0.2 [facility] Comment on above: Performed By: #### C BCA, 53845-3, CMP, 5643-2, 67728-1, 2157- 6, 14591-0, 2639-3, 76974-4, THYR #### [facility] ([id number]) [address] [place] [address] 77073 ABSOLUTE NEUTROPHIL 8.6 X10E9/L High 1.5-6.6 [facility] Comment on above: Performed By: #### C BCA, 88783-0, CMP, 5643-2, 34411-0, 2157- 6, 59846-1, 2639-3, 53450-5, THYR #### [facility] ([id number]) [address] [place] [address] 28781 Basophils/100 WBC (Bld) 0.6 % Normal [facility] Comment on above: Performed By: #### C BCA, 76614-8, CMP, 5643-2, 78071-7, 2157- 6, 98827-0, 2639-3, 21925-6, THYR #### [facility] ([id number]) [address] [place] [address] 64787 Eosinophils (Bld) [#/Vol] 0.1 10*3/uL Normal 0.0-0.4 [facility] Comment on above: Performed By: #### C BCA, 28240-5, CMP, 5643-2, 54434-9, 2157- 6, 37877-5, 2639-3, 69305-7, THYR #### [facility] ([id number]) [address] [place] [address], [place] [address] Eosinophils/100 WBC (Bld) 0.7 % Normal [facility] Comment on above: Performed By: #### C BCA, 20898-3, CMP, 5643-2, 44577-4, 2157- 6, 76572-1, 2639-3, 85375-2, THYR #### [facility] ([id number]) [address] [place] [address] 58585 Erythrocyte distribution width (RBC) [Ratio] 13.2 % Normal 11.5-15.0 [facility] Comment on above: Performed By: #### C CHRISTINE, 15807-8, CMP, 5643-2, 12643-7, 2157- 6, 79188-4, 2639-3, 08866-8, THYR #### [facility] ([id number]) [address] [place] [address] 32593 Hematocrit (Bld) [Volume fraction] 38.7 % Low 39-49 [facility] Comment on above: Performed By: #### C BCA, 48479-1, CMP, 5643-2, 61413-5, 2157- 6, 79780-0, 2639-3, 82754-0, THYR #### [facility] ([id number]) [address] [place] [address] 53559 Hemoglobin (Bld) [Mass/Vol] 13.4 g/dL Normal 13.0-17.0 [facility] Comment on above: Performed By: #### C BCA, 48191-2, CMP, 5643-2, 19461-6, 2157- 6, 64421-5, 2639-3, 63361-6, THYR #### [facility] ([id number]) [address] [place] [address] 22696 Lymphocytes (Bld) [#/Vol] 2.1 10*3/uL Normal 1.0-3.5 [facility] Comment on above: Performed By: #### C BCA, 64255-2, CMP, 5643-2, 72253-2, 2157- 6, 65539-2, 2639-3, 25451-2, THYR #### [facility] ([id number]) [address] [place] [address] 91049 Lymphocytes/100 WBC (Bld) 18.2 % Normal [facility] Comment on above: Performed By: #### C BCA, 91375-9, CMP, 5643-2, 14532-3, 2157- 6, 34611-0, 2639-3, 59982-8, THYR #### [facility] ([id number]) [address] [place] [address] 85923 MCH (RBC) [Entitic mass] 29.3 pg Normal 27-34 [facility] Comment on above: Performed By: #### C BCA, 36333-6, CMP, 5643-2, 39452-6, 2157- 6, 95025-5, 2639-3, 44632-0, THYR #### [facility] ([id number]) [address] [place] [address] 95673 MCHC (RBC) [Mass/Vol] 34.5 g/dL Normal 32-36 [facility] Comment on above: Performed By: #### C BCA, 50692-8, CMP, 5643-2, 25058-6, 2157- 6, 06664-5, 2639-3, 80566-2, THYR #### [facility] ([id number]) [address] [place] [address] 71040 MCV (RBC) [Entitic vol] 85 fL Normal 80-100 [facility] Comment on above: Performed By: #### C BCA, 39380-7, CMP, 5643-2, 32794-7, 2157- 6, 19170-5, 2639-3, 08504-0, THYR #### [facility] ([id number]) [address] [place] [address] 57051 Monocytes (Bld) [#/Vol] 0.5 10*3/uL Normal 0-0.9 [facility] Comment on above: Performed By: #### C BCA, 77375-6, CMP, 5643-2, 73606-4, 2157- 6, 70813-8, 2639-3, 99472-8, THYR #### [facility] ([id number]) [address] [place] [address] 50307 Monocytes/100 WBC (Bld) 4.8 % Normal [facility] Comment on above: Performed By: #### C BCA, 80243-8, CMP, 5643-2, 07843-5, 2157- 6, 23933-7, 2639-3, 15329-3, THYR #### [facility] ([id number]) [address] [place] [address] 68902 Neutrophils/100 WBC (Bld) 75.7 % Normal [facility] Comment on above: Performed By: #### C BCA, 15072-2, CMP, 5643-2, 94322-1, 2157- 6, 93778-1, 2639-3, 24069-4, THYR #### [facility] ([id number]) [address] [place] [address] 81775 Platelet mean volume (Bld) [Entitic vol] 8.3 fL Normal 7-12 [facility] Comment on above: Performed By: #### C BCA, 81694-6, CMP, 5643-2, 80149-3, 2157- 6, 15646-2, 2639-3, 23063-5, THYR #### [facility] ([id number]) [address] [place] [address] 66269 Platelets (Bld) [#/Vol] 218 10*3/uL Normal 150-450 [facility] Comment on above: Performed By: #### C BCA, 03888-6, CMP, 5643-2, 16062-7, 2157- 6, 25228-6, 2639-3, 21834-9, THYR #### [facility] ([id number]) [address] [place] [address] 02469 RBC COUNT 4.56 X10E12/L Normal 4.10-5.70 [facility] Comment on above: Performed By: #### C BCA, 57574-8, CMP, 5643-2, 69844-6, 2157- 6, 99428-3, 2639-3, 99730-5, THYR #### [facility] ([id number]) [address] [place] [address] 77572 WBC (Bld) [#/Vol] 11.4 10*3/uL High 4.0-11.0 [facility] Comment on above: Performed By: #### C BCA, 88902-8, CMP, 5643-2, 11469-1, 2157- 6, 63136-7, 2639-3, 66610-0, THYR #### [facility] ([id number]) [address] [place] [address] 44367 CK [Catalytic activity/Vol]o n 05-22-2023 CPK 392 U/L High 24-195 [facility] Comment on above: Performed By: #### C BCA, 19009-9, CMP, 5643-2, 97352-3, 2157- 6, 86084-5, 2639-3, 29302-7, THYR #### [facility] ([id number]) [address] [place] [address] 16935 COMPREHENSIVE METABOLIC PANE Trent 05-22-2023 Albumin [Mass/Vol] 4.2 g/dL Normal 3.2-5.3 [facility] Comment on above: Performed By: #### C BCA, 66104-7, CMP, 5643-2, 38427-3, 2157- 6, 29716-3, 2639-3, 28468-1, THYR #### [facility] ([id number]) [address] [place] [address] [place] [address] ALP [Catalytic activity/Vol] 89 U/L Normal 39-130 [facility] Comment on above: Performed By: #### C BCA, 16148-6, CMP, 5643-2, 16194-6, 2157- 6, 34147-2, 2639-3, 25754-5, THYR #### [facility] ([id number]) [address] [place] [address] 06128 ALT [Catalytic activity/Vol] 29 U/L Normal 0-40 [facility] Comment on above: Performed By: #### C BCA, 60303-2, CMP, 5643-2, 45146-2, 2157- 6, 56229-7, 2639-3, 90665-7, THYR #### [facility] ([id number]) [address] [place] [address] [place] [address] Anion gap [Moles/Vol] 8 mmol/L Normal 5-15 [facility] Comment on above: Performed By: #### C BCA, 65826-0, CMP, 5643-2, 80003-5, 2157- 6, 94111-4, 2639-3, 40706-8, THYR #### [facility] ([id number]) [address] [place] [address] [place] [address] AST [Catalytic activity/Vol] 25 U/L Normal 0-41 [facility] Comment on above: Performed By: #### C BCA, 52037-2, CMP, 5643-2, 95591-5, 2157- 6, 64036-8, 2639-3, 59489-2, THYR #### [facility] ([id number]) [address] [place] [address], [place] [address] Bilirubin [Mass/Vol] 0.5 mg/dL Normal 0.3-1.2 [facility] Comment on above: Performed By: #### C BCA, 75034-3, CMP, 5643-2, 93380-5, 2157- 6, 50783-3, 2639-3, 83449-7, THYR #### [facility] ([id number]) [address] [place] [address] [place] [address] Calcium [Mass/Vol] 8.5 mg/dL Normal 8.5-10.5 [facility] Comment on above: Performed By: #### C BCA, 25902-2, CMP, 5643-2, 09045-9, 2157- 6, 04527-2, 2639-3, 35052-6, THYR #### [facility] ([id number]) [address] [place] [address] [place] [address] Chloride [Moles/Vol] 103 mmol/L Normal 98-109 [facility] Comment on above: Performed By: #### C BCA, 70991-1, CMP, 5643-2, 12133-0, 2157- 6, 45936-6, 2639-3, 05209-7, THYR #### [facility] ([id number]) [address] [place] [address] [place] [address] CO2 [Moles/Vol] 23 mmol/L Normal 22-32 [facility] Comment on above: Performed By: #### C BCA, 83928-0, CMP, 5643-2, 30089-6, 2157- 6, 93349-4, 2639-3, 51785-1, THYR #### [facility] ([id number]) [address] [place] [address], [place] [address] Creatinine [Mass/Vol] 1.12 mg/dL Normal 0.70-1.20 [facility] Comment on above: Result Comment: METH OD TRACEABLE TO IDMS STANDARD Performed By: #### C BCA, 08658-7, CMP, 5643-2, 40427-2, 2157-6, 81194-9, 2639-3, 51054-5, THYR #### [facility] ([id number]) [address] [place] [address] 70355 GFR/1.73 sq M.predicted among non-blacks MDRD (S/P/Bld) [Vol rate/Area] 77 mL/min/{1.73_m2} Normal >59 [facility] Comment on above: Result Comment: Reported eGFR is based on the CKD-EPI 2020 equation that does not use a race coefficient. Performed By: #### C BCA, 30151-5, CMP, 5643-2, 17107-5, 2157-6, 41392-6, 2639-3, 00133-6, THYR #### [facility] ([id number]) [address] [place] [address] 59897 Glucose [Mass/Vol] 271 mg/dL High 65-99 [facility] Comment on above: Performed By: #### C BCA, 44079-2, CMP, 5643-2, 32571-4, 2157- 6, 27882-7, 2639-3, 46254-9, THYR #### [facility] ([id number]) [address] [place] [address] 07112 Potassium [Moles/Vol] 2.9 mmol/L Low 3.5-5.0 [facility] Comment on above: Performed By: #### C BCA, 96287-1, CMP, 5643-2, 89074-0, 2157- 6, 03240-9, 2639-3, 91480-4, THYR #### [facility] ([id number]) [address] [place] [address] 97295 Protein [Mass/Vol] 7.5 g/dL Normal 6.0-8.0 [facility] Comment on above: Performed By: #### C BCA, 01322-8, CMP, 5643-2, 35110-6, 2157- 6, 01676-1, 2639-3, 02798-2, THYR #### [facility] ([id number]) [address] [place] [address] 86709 Sodium [Moles/Vol] 134 mmol/L Normal 134-146 [facility] Comment on above: Performed By: #### C BCA, 66239-3, CMP, 5643-2, 61198-9, 2157- 6, 81737-7, 2639-3, 54156-1, THYR #### [facility] ([id number]) [address] [place] [address] 25133 Urea nitrogen [Mass/Vol] 22 mg/dL Normal 5-23 [facility] Comment on above: Performed By: #### C BCA, 09291-5, CMP, 5643-2, 45840-2, 7- 6, 20863-7, 2639-3, 47614-7, THYR #### [facility] ([id number]) [address] [place] [address] 78058 DRUG SCREEN, URINEon 024 AMPHETAMINE/METHAMP Positive Abnormal NEG [facility] Comment on above: Result Comment: Conf irmation available upon request. AMPH/METH screening cut off = 1000 ng/mL Performed By: #### Pawel KING, [facility], 3040-3 #### [facility] ([id number]) [address] [place] [address] 89153 BARBITURATES Negative Normal NEG [facility] Comment on above: Result Comment: Shruthi iturates screening cut off value = 200 ng/mL Performed By: #### Pawel KING, ZEE, 3040-3 #### [facility] ([id number]) [address] [place] [address] [place] [address] BENZODIAZEPINES Positive Abnormal NEG [facility] Comment on above: Result Comment: Conf irmation available upon request. Benzodiazepines screening cut off value = 200 ng/mL Performed By: #### C ZEE KING, 3040-3 #### [facility] ([id number]) [address] [place] [address] 73205 CANNABINOIDS Positive Abnormal NEG [facility] Comment on above: Result Comment: Conf irmation available upon request. Cannabinoids/THC screening cut off value = 50 ng/mL Performed By: #### C ZEE KING, 0-3 #### [facility] ([id number]) [address] [place] [address] 81752 COCAINE METABOLITE Negative Normal NEG [facility] Comment on above: Result Comment: Coca ine screening cut off value = 300 ng/mL Performed By: #### C ZEE KING, 3039-3 #### [facility] ([id number]) [address] [place] [address] 45696 ECSTASY Negative Normal NEG [facility] Comment on above: Result Comment: Ecst asy screening cut off value = 500 ng/mL This report is intended for use in clinical monitoring or management of patients. Performed By: #### C ZEE KING, 3039-3 #### [facility] ([id number]) [address] [place] [address] 17058 METHADONE Negative Normal NEG [facility] Comment on above: Result Comment: Meth adone screening cut off value = 300 ng/mL. Performed By: #### Pawel KING CMP, 0-3 #### [facility] ([id number]) [address] [place] [address] 00243 OPIATES Positive Abnormal NEG [facility] Comment on above: Result Comment: Conf irmation available upon request. Opiates screening cut off value = 300 ng/mL NOTE: This test is used for the detection of codeine, hydrocodone (>1000 ng/mL), morphine and hydromorphone (>900 ng/mL) in urine. Performed By: #### C ZEE KING, 3040-3 #### [facility] ([id number]) [address] [place] [address] 97902 OXYCODONE Negative Normal NEG [facility] Comment on above: Result Comment: Oxyc odone screening cut off value = 300 ng/mL NOTE: This test is used for the detection of oxycodone and oxymorphone in urine. Performed By: #### C BCA, ZEE, 3040-3 #### [facility] ([id number]) [address] [place] [address] 56303 PHENCYCLIDINE Negative Normal NEG [facility] Comment on above: Result Comment: Phen cyclidine screening cut off value = 25 ng/mL Performed By: #### C CHRISTINE, ZEE, 3040-3 #### [facility] ([id number]) [address] [place] [address] 53669 ETHANOLon 05-22-2023 Ethanol [Mass/Vol] mg/dL Normal 0.00-0.08 [facility] Comment on above: Result Comment: This report is intended for use in clinical monitoring or management of patients. Performed By: #### C BCA, 25471-5, CMP, 5643-2, 72616-6, 2157-6, 88793-8, 2639-3, 43490-7, THYR #### [facility] ([id number]) [address] [place] [address] 22530 Longterm Documentson 05-22-2023 Longterm Documents [id number]# 1.00TIFF Normal [facility] Lactate (P anne-marie) [Moles/Vol]o n 05-22-2023 Lactate [Moles/Vol] 2.1 mmol/L High 0.4-2.0 [facility] Comment on above: Performed By: #### C BCA, CMP, 3040-3 #### [facility] ([id number]) [address] [place] [address] [id number] LACTATE W/REFLEX 5.0 mmol/L Critically high 0.4-2.0 [facility] Comment on above: Performed By: #### C BCA, 35301-8, CMP, 5643-2, 16484-6, 2157- 6, 81198-5, 2639-3, 99202-7, THYR #### [facility] ([id number]) [address] [place], [place] [address] 84526 MAGNESIUMon 05-22-2023 Magnesium [Mass/Vol] 2.0 mg/dL Normal 1.8-2.6 [facility] Comment on above: Performed By: #### C CHRISTINE, 73615-6, CMP, 5643-2, 78958-5, 7- 6, 60219-3, 2639-3, 06949-8, THYR #### [facility] ([id number]) [address] [place] [address] 27781 Myoglobin [Mass/Vol]on 05-21 SERUM MYOGLOBIN 49.9 ng/mL Normal 17.4-105.7 [facility] Comment on above: Performed By: #### C CHRISTINE, ZEE, 3040-3 #### [facility] ([id number]) [address] [place] [address] 12941 Natriuretic peptide B [Mass/ Vol]on 05-22-2023 BRN NATRIURETIC PEP <5 Normal <100.0 [facility] Comment on above: Performed By: #### C BCA, 75671-1, CMP, 5643-2, 07827-6, 7- 6, 00005-6, 2639-3, 36385-6, THYR #### [facility] ([id number]) [address] [place] [address] 38098 THYROID PROFILEon 05-22-2023 Free T4 [Mass/Vol] 1.17 ng/dL Normal 0.61-1.60 [facility] Comment on above: Performed By: #### C CHRISTINE, CMP, 3040-3 #### [facility] ([id number]) [address] [place] [address] 86937 TSH 3.43 uIU/mL Normal 0.49-4.67 [facility] Comment on above: Performed By: #### Pawel KING CMP, 0-3 #### [facility] ([id number]) [address] [place] [address] 45647 Troponin I.cardiac High sens itivity method [Mass/Vol]on 05-22-2023 1 HOUR TROP I, HIGH SENSITIVITY 2 ng/L Normal <21 [facility] Comment on above: Performed By: #### Pawel KING CMP, 3 #### [facility] ([id number]) [address] [place] [address] 01222 TROPONIN I, HIGH SENSITIVITY 3 ng/L Normal <21 [facility] Comment on above: Performed By: #### Pawel KING [facility], 3 #### [facility] ([id number]) [address] [place] [address] 56006 URN MACROSCOPIC NURon 2023 BILIRUBIN DEBORAH Negative Normal NEG [facility] Comment on above: Performed By: #### Pawel KING CMP, 3039-3 #### [facility] ([id number]) [address] [place] [address] 87683 BLOOD/HGB DEBORAH Negative Normal NEG [facility] Comment on above: Performed By: #### Pawel KING, ZEE, 0-3 #### [facility] ([id number]) [address] [place] [address] 24256 GLUCOSE DEBORAH 500 mg/dL Abnormal NEG [facility] Comment on above: Performed By: #### Pawel KING CMP, 0-3 #### [facility] ([id number]) [address] [place] [address] [place] [address] KETONES DEBORAH Negative Normal NEG [facility] Comment on above: Performed By: #### C CHRISTINE CMP, 3039-3 #### [facility] ([id number]) [address] [place] [address] 42173 LEUKOCYTE ESTERASE DEBORAH Negative Normal NEG [facility] Comment on above: Performed By: #### C CHRISTINE CMP, 3039-3 #### [facility] ([id number]) [address] [place] [address] 97389 NITRITE DEBORAH Negative Normal NEG [facility] Comment on above: Performed By: #### C CHRISTINE CMP, 3039-3 #### [facility] ([id number]) [address] [place] [address] 81444 PH DEBORAH 6.0 Normal 5.0-8.5 [facility] Comment on above: Performed By: #### Pawel KING CMP, 3039-3 #### [facility] ([id number]) [address] [place] [address] 84926 PROTEIN DEBORAH Negative Normal NEG [facility] Comment on above: Performed By: #### Pawel KING CMP, 3 #### [facility] ([id number]) [address] [place] [address] 98826 SPECIFIC GRAVITY DEBORAH 1.015 Normal 1.003-1.035 [facility] Comment on above: Performed By: #### Pawel KING CMP, 3039-3 #### [facility] ([id number]) [address] [place] [address] [place] [address] UROBILINOGEN DEBORAH 0.2 eu/dL Normal <1.1 [facility] Comment on above: Performed By: #### Pawel KING CMP, 3039-3 #### [facility] ([id number]) [address] [place] [address] 77172 CBC AND AUTO DIFFon 05-17-19 24 ABSOLUTE BASOPHIL 0.1 X10E9/L Normal 0.0-0.2 [facility] Comment on above: Performed By: #### Pawel KING CMP, 3039-04 #### [facility] ([id number]) [address] [place] [address] 57905 ABSOLUTE NEUTROPHIL 3.9 X10E9/L Normal 1.5-6.6 [facility] Comment on above: Performed By: #### Pawle KING CMP, 3039-04 #### [facility] ([id number]) [address] [place] [address] 34035 Basophils/100 WBC (Bld) 1.1 % Normal [facility] Comment on above: Performed By: #### Pawel KING CMP, 3039-04 #### [facility] ([id number]) [address] [place] [address] 18887 Eosinophils (Bld) [#/Vol] 0.1 10*3/uL Normal 0.0-0.4 [facility] Comment on above: Performed By: #### Pawel KING CMP, 3039-04 #### [facility] ([id number]) [address] [place] [address] 90034 Eosinophils/100 WBC (Bld) 1.9 % Normal [facility] Comment on above: Performed By: #### Pawel KING CMP, 3039-04 #### [facility] ([id number]) [address] [place] [address] 29387 Erythrocyte distribution width (RBC) [Ratio] 13.5 % Normal 11.5-15.0 [facility] Comment on above: Performed By: #### Pawel KING CMP, 3039-04 #### [facility] ([id number]) [address] [place] [address] 31885 Hematocrit (Bld) [Volume fraction] 43.5 % Normal 39-49 [facility] Comment on above: Performed By: #### Pawel KING CMP, 3040-3 #### [facility] ([id number]) [address] [place] [address] 71281 Hemoglobin (Bld) [Mass/Vol] 14.9 g/dL Normal 13.0-17.0 [facility] Comment on above: Performed By: #### Pawel KING CMP, 3039-3 #### [facility] ([id number]) [address] [place] [address] 01365 Lymphocytes (Bld) [#/Vol] 1.4 10*3/uL Normal 1.0-3.5 [facility] Comment on above: Performed By: #### Pawel KING CMP, 3039-04 #### [facility] ([id number]) [address] [place] [address] 11612 Lymphocytes/100 WBC (Bld) 23.2 % Normal [facility] Comment on above: Performed By: #### Pawel KING CMP, 3 #### [facility] ([id number]) [address] [place] [address] 31184 MCH (RBC) [Entitic mass] 29.3 pg Normal 27-34 [facility] Comment on above: Performed By: #### Pawel KING CMP, 3039-04 #### [facility] ([id number]) [address] [place] [address] 66685 MCHC (RBC) [Mass/Vol] 34.2 g/dL Normal 32-36 [facility] Comment on above: Performed By: #### Pawel KING CMP, 3 #### [facility] ([id number]) [address] [place] [address] 52883 MCV (RBC) [Entitic vol] 86 fL Normal 80-100 [facility] Comment on above: Performed By: #### Pawel KING CMP, 3039-3 #### [facility] ([id number]) [address] [place] [address] [place] [address] Monocytes (Bld) [#/Vol] 0.6 10*3/uL Normal 0-0.9 [facility] Comment on above: Performed By: #### Pawel KING CMP, 3039-3 #### [facility] ([id number]) [address] [place] [address] 40544 Monocytes/100 WBC (Bld) 9.2 % Normal [facility] Comment on above: Performed By: #### Pawel KING CMP, 3039-04 #### [facility] ([id number]) [address] [place] [address] 34045 Neutrophils/100 WBC (Bld) 64.6 % Normal [facility] Comment on above: Performed By: #### Pawel KING CMP, 3039-04 #### [facility] ([id number]) [address] [place] [address] 02083 Platelet mean volume (Bld) [Entitic vol] 8.2 fL Normal 7-12 [facility] Comment on above: Performed By: #### Pawel KING CMP, 3039-04 #### [facility] ([id number]) [address] [place] [address] 73292 Platelets (Bld) [#/Vol] 271 10*3/uL Normal 150-450 [facility] Comment on above: Performed By: #### Pawel KING CMP, 3039-04 #### [facility] ([id number]) [address] [place] [address] 21744 RBC COUNT 5.07 X10E12/L Normal 4.10-5.70 [facility] Comment on above: Performed By: #### Pawel KING CMP, 3039-04 #### [facility] ([id number]) [address] [place] [address] 45314 WBC (Bld) [#/Vol] 6.0 10*3/uL Normal 4.0-11.0 [facility] Comment on above: Performed By: #### C BCA, CMP, 3039-3 #### [facility] ([id number]) [address] [place] [address] 51735 COMPREHENSIVE METABOLIC PANE Trent 05-17-2023 Albumin [Mass/Vol] 4.8 g/dL Normal 3.2-5.3 [facility] Comment on above: Performed By: #### C CHRISTINE, CMP, 3039-3 #### [facility] ([id number]) [address] [place] [address] 93681 ALP [Catalytic activity/Vol] 103 U/L Normal 39-130 [facility] Comment on above: Performed By: #### Pawel BCA, CMP, 3 #### [facility] ([id number]) [address] [place] [address] 36666 ALT [Catalytic activity/Vol] 35 U/L Normal 0-40 [facility] Comment on above: Performed By: #### C BCA, CMP, 3 #### [facility] ([id number]) [address] [place] [address] 77205 Anion gap [Moles/Vol] 5 mmol/L Normal 5-15 [facility] Comment on above: Performed By: #### C CHRISTINE, CMP, 3039-3 #### [facility] ([id number]) [address] [place] [address] 84569 AST [Catalytic activity/Vol] 23 U/L Normal 0-41 [facility] Comment on above: Performed By: #### Pawel BCA, CMP, 3039-3 #### [facility] ([id number]) [address] [place] [address] 42948 Bilirubin [Mass/Vol] 0.6 mg/dL Normal 0.3-1.2 [facility] Comment on above: Performed By: #### Pawel BCA, CMP, 3039-3 #### [facility] ([id number]) [address] [place] [address] 54648 Calcium [Mass/Vol] 9.3 mg/dL Normal 8.5-10.5 [facility] Comment on above: Performed By: #### C ZEE KING, 3039-3 #### [facility] ([id number]) [address] [place] [address] 37411 Chloride [Moles/Vol] 107 mmol/L Normal 98-109 [facility] Comment on above: Performed By: #### Pawel KING CMP, 3039-3 #### [facility] ([id number]) [address] [place] [address] 41089 CO2 [Moles/Vol] 25 mmol/L Normal 22-32 [facility] Comment on above: Performed By: #### Pawel KING CMP, 3039-3 #### [facility] ([id number]) [address] [place] [address] 13393 Creatinine [Mass/Vol] 0.87 mg/dL Normal 0.70-1.20 [facility] Comment on above: Result Comment: METH OD TRACEABLE TO IDMS STANDARD Performed By: #### C ZEE KING, 3039-3 #### [facility] ([id number]) [address] [place] [address] 99633 eGFR (CKD-EPI) NON-RACE DEPENDENT >90 Normal >59 [facility] Comment on above: Result Comment: Reported eGFR is based on the CKD-EPI 2020 equation that does not use a race coefficient. Performed By: #### Pawel KING CMP, 3039-3 #### [facility] ([id number]) [address] [place] [address] 83094 Glucose [Mass/Vol] 102 mg/dL High 65-99 [facility] Comment on above: Performed By: #### Pawel KING CMP, 3039-3 #### [facility] ([id number]) [address] [place] [address] 94661 Potassium [Moles/Vol] 3.9 mmol/L Normal 3.5-5.0 [facility] Comment on above: Performed By: #### C CHRISTINE CMP, 3040-3 #### [facility] ([id number]) [address] [place] [address] 64514 Protein [Mass/Vol] 8.6 g/dL High 6.0-8.0 [facility] Comment on above: Performed By: #### C CHRISTINE [facility], 3040-3 #### [facility] ([id number]) [address] [place] [address] 29310 Sodium [Moles/Vol] 137 mmol/L Normal 134-146 [facility] Comment on above: Performed By: #### Pawel KING [facility], 3040-3 #### [facility] ([id number]) [address] [place] [address] 72110 Urea nitrogen [Mass/Vol] 16 mg/dL Normal 5-23 [facility] Comment on above: Performed By: #### Pawel KING [facility], 3040-3 #### [facility] ([id number]) [address] [place] [address] 77081 LIPASEon 05-17-2023 Lipase [Catalytic activity/Vol] 47 U/L High 17-40 [facility] Comment on above: Performed By: #### Pawel KING, CMP, 3040-3 #### [facility] ([id number]) [address] [place] [address] ABD/PELVIS WO CONon 05-23 CT ABD/PELVIS [...] IBAN MORTON Date: 2021-05-23 11:44 Normal [facility] LEAD,ADULTon 04-30-2021 Lead, Blood (Adult) 5 ug/dL Critically high 0-4 [facility] Comment on above: Result Comment: Anal ysis by inductively coupled plasma/mass spectrometry (ICP/MS) Environmental Exposure: WHO Recommendation <20 Occupational Exposure: OSHA Lead Std 40 MIGUEL A 30 . Detection Limit = 1 Performed By: #### L EADA #### [facility] [address] [address] [address] Kena Peterson CBC AUTO DIFFon 04-28-2021 BASO # 0.0 103/ul Normal 0.0-0.1 [facility] Comment on above: Performed By: #### C BC #### [facility] [address] [address] [address] Kena Peterson Basophils/100 WBC (Bld) 0.5 % Normal 0.2-2.0 [facility] Comment on above: Performed By: #### C BC #### [facility] [address] [place] [address] Dr. Kena Peterson EO # 0.4 103/ul Normal 0.0-0.7 [facility] Comment on above: Performed By: #### C BC #### [facility] [address] [place] [address] Dr. Kena Peterson Eosinophils/100 WBC (Bld) 4.5 % Normal 0.9-7.0 [facility] Comment on above: Performed By: #### C BC #### [facility] [address] [place] [address] Dr. Kena Peterson Erythrocyte distribution width (RBC) [Ratio] 12.2 % Normal 11.0-15.0 [facility] Comment on above: Performed By: #### C BC #### [facility] [address] [place] [address] Dr. Kena Peterson Hematocrit (Bld) [Volume fraction] 40.2 % Critically low 42.0-54.0 [facility] Comment on above: Performed By: #### C BC #### [facility] [address] [place] [address] Dr. Kena Peterson Hemoglobin (Bld) [Mass/Vol] 13.3 g/dL Critically low 14.0-18.0 [facility] Comment on above: Performed By: #### C BC #### [facility] [address] [place] [address] Dr. Kena Peterson IG # 0.02 10e3/ul Normal 0.00-0.03 [facility] Comment on above: Performed By: #### C BC #### [facility] [address] [place] [address] Dr. Kena Peterson IG % 0.2 % Normal 0.0-0.5 [facility] Comment on above: Performed By: #### C BC #### [facility] [address] [place] [address] Dr. Kena Peterson LYMPH # 2.3 103/ul Normal 1.2-3.8 [facility] Comment on above: Performed By: #### C BC #### [facility] [address] [place] [address] Dr. Kena Peterson Lymphocytes/100 WBC (Bld) 26.8 % Normal 20.5-60.0 [facility] Comment on above: Performed By: #### C BC #### [facility] [address] [place] [address] Dr. Kena Peterson MANUAL DIFF REQ NO Normal [facility] Comment on above: Performed By: #### C BC #### [facility] [address] [place] [address] Dr. Kena Peterson MCH (RBC) [Entitic mass] 29.3 pg Normal 25.9-34.0 [facility] Comment on above: Performed By: #### C BC #### [facility] [address] [place] [address] Dr. Kena Peterson MCHC (RBC) [Mass/Vol] 33.1 g/dL Normal 29.9-35.2 [facility] Comment on above: Performed By: #### C BC #### [facility] [address] [place] [address] Dr. Kena Peterson MCV (RBC) [Entitic vol] 88.5 fL Normal 80.0-94.0 [facility] Comment on above: Performed By: #### C BC #### [facility] [address] [place] [address] Dr. Kena Peterson MONO # 0.7 103/ul Normal 0.3-0.8 [facility] Comment on above: Performed By: #### C BC #### [facility] [address] [place] [address] Dr. Kena Peterson Monocytes/100 WBC (Bld) 7.7 % Normal 1.7-12.0 [facility] Comment on above: Performed By: #### C BC #### [facility] [address] [place] [address] Dr. Kena Peterson NEUT # 5.1 103/ul Normal 1.4-6.5 [facility] Comment on above: Performed By: #### C BC #### [facility] [address] [place] [address] Dr. Kena Peterson Neutrophils/100 WBC (Bld) 60.3 % Normal 43.0-75.0 [facility] Comment on above: Performed By: #### C BC #### [facility] [address] [place] [address] Dr. Kena Peterson Platelet mean volume (Bld) [Entitic vol] 9.9 fL Normal 9.5-13.5 [facility] Comment on above: Performed By: #### C BC #### [facility] [address] [place] [address] Dr. Kena Peterson PLT 215 103/ul Normal 150-450 [facility] Comment on above: Performed By: #### C BC #### [facility] [address] [place] [address] Dr. Kena Peterson RBC 4.54 106/ul Critically low 4.70-6.[address] [facility] Comment on above: Performed By: #### C BC #### [facility] [address] [place] [address] Dr. Kena Peterson WBC 8.4 103/ul Normal 4.0-11.0 [facility] Comment on above: Performed By: #### C BC #### [facility] [address] [place] [address] Dr. Kena Peterson ER URINE PROFILEon 2 Bilirubin Ql (U) Negative Normal NEGATIVE [facility] Comment on above: Performed By: #### E RUR #### [facility] [address] [place] [address] Dr. Kena Peterson Clarity (U) CLEAR Normal CLEAR [facility] Comment on above: Performed By: #### E RUR #### [facility] [address] [place] [address] Dr. Kena Peterson Color (U) LT. YELLOW Normal YELLOW [facility] Comment on above: Performed By: #### E RUR #### [facility] [address] [place] [address] Dr. Kena SILVA A micrscopic examination will be performed if indicated. Normal [facility] Comment on above: Performed By: #### E RUR #### [facility] [address] [place] [address] Dr. Kena Peterson Glucose Ql (U) Negative Normal NEGATIVE [facility] Comment on above: Performed By: #### E RUR #### [facility] [address] [place] [address] Dr. Kena Peterson Hemoglobin Ql (U) Negative Normal NEGATIVE [facility] Comment on above: Performed By: #### E RUR #### [facility] [address] [place] [address] Dr. Kena Peterson Ketones Ql (U) Negative Normal NEGATIVE [facility] Comment on above: Performed By: #### E RUR #### [facility] [address] [place] [address] Dr. Kena Peterson LEUKOCYTES Negative Normal NEGATIVE [facility] Comment on above: Performed By: #### E RUR #### [facility] [address] [place] [address] Dr. Kena Peterson Nitrite Ql (U) Negative Normal NEGATIVE [facility] Comment on above: Performed By: #### E RUR #### [facility] [address] [place] [address] Dr. Kena Peterson pH (U) 7.0 [pH] Normal 5-9 [facility] Comment on above: Performed By: #### E RUR #### [facility] [address] [place] [address] Dr. Kena Peterson SPEC GRAVITY 1.010 Normal 1.005-<=1.025 [facility] Comment on above: Performed By: #### E RUR #### [facility] [address] [place] [address] Dr. Kena Peterson UA PROTEIN Negative Normal NEGATIVE/ TRACE [facility] Comment on above: Performed By: #### E RUR #### [facility] [address] [place] [address] Dr. Kena Peterson UR MICRO IND NOT INDICATED Normal [facility] Comment on above: Performed By: #### E RUR #### [facility] [address] [address] [address] Kena Peterson Urobilinogen Qn (U) 0.2 {Brian'U}/dL Normal 0.2 - 1. 0 [facility] Comment on above: Performed By: #### E RUR #### [facility] [address] [address] [address] Kena Peterson PROF CHEM 8 (BAS METB)on Anion gap [Moles/Vol] 11.4 mmol/L Normal [facility] Comment on above: Performed By: #### B MP #### [facility] [address] [place] [address] Dr. Kena Peterson Calcium [Mass/Vol] 8.8 mg/dL Normal 8.5-10.1 [facility] Comment on above: Performed By: #### B MP #### [facility] [address] [place] [address] Dr. Kena Peterson Chloride [Moles/Vol] 100 mmol/L Normal 98-107 [facility] Comment on above: Performed By: #### B MP #### [facility] [address] [address] [address] Kena Peterson CO2 [Moles/Vol] 31.9 mmol/L Critically high 22.0-30.0 [facility] Comment on above: Performed By: #### B MP #### [facility] [address] [place] [address] Dr. Kena Peterson Creatinine [Mass/Vol] 0.96 mg/dL Normal 0.66-1.25 [facility] Comment on above: Performed By: #### B MP #### [facility] [address] [place] [address] Dr. Kena Peterson EGFR-AF SOUTH AFRICAN >60 Normal >=60 [facility] Comment on above: Performed By: #### B MP #### [facility] [address] [place] [address] Dr. Kena Peterson EGFR-NON AF [place] >60 Normal >=60 [facility] Comment on above: Performed By: #### B MP #### [facility] [address] [address] [address] Kena Peterson Glucose [Mass/Vol] 101 mg/dL Normal 74-106 [facility] Comment on above: Performed By: #### B MP #### [facility] [address] [address] [address] Kena Peterson Potassium [Moles/Vol] 4.3 mmol/L Normal 3.4-5.0 [facility] Comment on above: Performed By: #### B MP #### [facility] [address] [address] [address] Kena Peterson Sodium [Moles/Vol] 139 mmol/L Normal 137-145 [facility] Comment on above: Performed By: #### B MP #### [facility] [address] [address] [address] Kena Peterson Urea nitrogen [Mass/Vol] 8.0 mg/dL Normal 7.0-18.0 [facility] Comment on above: Performed By: #### B MP #### [facility] [address] [address] [address] Kena Peterson Urea nitrogen/Creatinine [Mass ratio] 8.3 mg/mg Normal [facility] Comment on above: Performed By: #### B MP #### [facility] [address] [address] [address] Kena Peterson CBC AUTO DIFFon 01-12-2021 BASO # 0.0 103/ul Normal 0.0-0.1 [facility] Comment on above: Performed By: #### C BC #### [facility] [address] [address] [address] Kena Peterson Basophils/100 WBC (Bld) 0.4 % Normal 0.2-2.0 [facility] Comment on above: Performed By: #### C BC #### [facility] [address] [address] [address] Kena Peterson EO # 0.1 103/ul Normal 0.0-0.7 [facility] Comment on above: Performed By: #### C BC #### [facility] [address] [place] [address] Dr. Kena Peterson Eosinophils/100 WBC (Bld) 1.3 % Normal 0.9-7.0 [facility] Comment on above: Performed By: #### C BC #### [facility] [address] [place] [address] Dr. Kena Peterson Erythrocyte distribution width (RBC) [Ratio] 13.4 % Normal 11.0-15.0 [facility] Comment on above: Performed By: #### C BC #### [facility] [address] [place] [address] Dr. Kena Peterson Hematocrit (Bld) [Volume fraction] 41.1 % Critically low 42.0-54.0 [facility] Comment on above: Performed By: #### C BC #### [facility] [address] [place] [address] Dr. Kena Peterson Hemoglobin (Bld) [Mass/Vol] 13.5 g/dL Critically low 14.0-18.0 [facility] Comment on above: Performed By: #### C BC #### [facility] [address] [place] [address] Dr. Kena Peterson IG # 0.03 10e3/ul Normal 0.00-0.03 [facility] Comment on above: Performed By: #### C BC #### [facility] [address] [place] [address] Dr. Kena Peterson IG % 0.3 % Normal 0.0-0.5 [facility] Comment on above: Performed By: #### C BC #### [facility] [address] [place] [address] Dr. Kena Peterson LYMPH # 2.7 103/ul Normal 1.2-3.8 [facility] Comment on above: Performed By: #### C BC #### [facility] [address] [place] [address] Dr. Kena Peterson Lymphocytes/100 WBC (Bld) 29.4 % Normal 20.5-60.0 [facility] Comment on above: Performed By: #### C BC #### [facility] [address] [place] [address] Dr. Kena Peterson MANUAL DIFF REQ NO Normal [facility] Comment on above: Performed By: #### C BC #### [facility] [address] [place] [address] Dr. Kena Peterson MCH (RBC) [Entitic mass] 28.9 pg Normal 25.9-34.0 [facility] Comment on above: Performed By: #### C BC #### [facility] [address] [place] [address] Dr. Kena Peterson MCHC (RBC) [Mass/Vol] 32.8 g/dL Normal 29.9-35.2 [facility] Comment on above: Performed By: #### C BC #### [facility] [address] [place] [address] Dr. Kena Peterson MCV (RBC) [Entitic vol] 88.0 fL Normal 80.0-94.0 [facility] Comment on above: Performed By: #### C BC #### [facility] [address] [place] [address] Dr. Kena Peterson MONO # 0.6 103/ul Normal 0.3-0.8 [facility] Comment on above: Performed By: #### C BC #### [facility] [address] [place] [address] Dr. Kena Peterson Monocytes/100 WBC (Bld) 6.9 % Normal 1.7-12.0 [facility] Comment on above: Performed By: #### C BC #### [facility] [address] [place] [address] Dr. Kena Peterson NEUT # 5.7 103/ul Normal 1.4-6.5 [facility] Comment on above: Performed By: #### C BC #### [facility] [address] [place] [address] Dr. Kena Peterson Neutrophils/100 WBC (Bld) 61.7 % Normal 43.0-75.0 [facility] Comment on above: Performed By: #### C BC #### [facility] [address] [place] [address] Dr. Kena Peterson Platelet mean volume (Bld) [Entitic vol] 10.5 fL Normal 9.5-13.5 [facility] Comment on above: Performed By: #### C BC #### [facility] [address] [place] [address] Dr. Kena Peterson PLT 268 103/ul Normal 150-450 [facility] Comment on above: Performed By: #### C BC #### [facility] [address] [place] [address] Dr. Kena Peterson RBC 4.67 106/ul Critically low 4.70-6.[address] [facility] Comment on above: Performed By: #### C BC #### [facility] [address] [place] [address] Dr. Kena Peterson WBC 9.2 103/ul Normal 4.0-11.0 [facility] Comment on above: Performed By: #### C BC #### [facility] [address] [place] [address] Dr. Kena Peterson PROF 14(COMP METB)on 021 Albumin [Mass/Vol] 3.9 g/dL Normal 3.5-5.0 [facility] Comment on above: Performed By: #### C MP #### [facility] [address] [place] [address] Dr. Kena Peterson Albumin/Globulin [Mass ratio] 1.0 {ratio} Normal [facility] Comment on above: Performed By: #### C MP #### [facility] [address] [place] [address] Dr. Kena Peterson ALP [Catalytic activity/Vol] 89 U/L Normal 38-126 [facility] Comment on above: Performed By: #### C MP #### [facility] [address] [place] [address] Dr. Kena Peterson ALT [Catalytic activity/Vol] 32 U/L Normal 21-72 [facility] Comment on above: Performed By: #### C MP #### [facility] [address] [address] [address] Kena Peterson Anion gap [Moles/Vol] 13.8 mmol/L Normal [facility] Comment on above: Performed By: #### C MP #### [facility] [address] [place] [address] Dr. Kena Peterson AST [Catalytic activity/Vol] 12 U/L Critically low 17-59 [facility] Comment on above: Performed By: #### C MP #### [facility] [address] [address] [address] Kena Peterson Bilirubin [Mass/Vol] 0.1 mg/dL Critically low 0.2-1.3 [facility] Comment on above: Performed By: #### C MP #### [facility] [address] [place] [address] Dr. Kena Peterson Calcium [Mass/Vol] 9.5 mg/dL Normal 8.4-10.2 [facility] Comment on above: Performed By: #### C MP #### [facility] [address] [place] [address] Dr. Kena Peterson Chloride [Moles/Vol] 107 mmol/L Normal 98-107 [facility] Comment on above: Performed By: #### C MP #### [facility] [address] [place] [address] Dr. Kena Peterson CO2 [Moles/Vol] 30.0 mmol/L Normal 22.0-30.0 [facility] Comment on above: Performed By: #### C MP #### [facility] [address] [place] [address] Dr. Kena Peterson Creatinine [Mass/Vol] 0.74 mg/dL Normal 0.66-1.25 [facility] Comment on above: Performed By: #### C MP #### [facility] [address] [place] [address] Dr. Kena Peterson EGFR-AF SOUTH AFRICAN >60 Normal >=60 [facility] Comment on above: Performed By: #### C MP #### [facility] [address] [place] [address] Dr. Kena Peterson EGFR-NON AF SOUTH AFRICAN >60 Normal >=60 [facility] Comment on above: Performed By: #### C MP #### [facility] [address] [place] [address] Dr. Kena Peterson Globulin (S) [Mass/Vol] 3.9 g/dL Normal [facility] Comment on above: Performed By: #### C MP #### [facility] [address] [address] [address] Kena Peterson Glucose [Mass/Vol] 144 mg/dL Critically high 74-106 [facility] Comment on above: Performed By: #### C MP #### [facility] [address] [address] [address] Kena Peterson Potassium [Moles/Vol] 3.8 mmol/L Normal 3.4-5.0 [facility] Comment on above: Performed By: #### C MP #### [facility] [address] [place] [address] Dr. Kena Peterson Protein [Mass/Vol] 7.8 g/dL Normal 6.1-8.2 [facility] Comment on above: Performed By: #### C MP #### [facility] [address] [place] [address] Dr. Kena Peterson Sodium [Moles/Vol] 147 mmol/L Critically high 137-145 [facility] Comment on above: Performed By: #### C MP #### [facility] [address] [address] [address] Kena Peterson Urea nitrogen [Mass/Vol] 9.0 mg/dL Normal 9.0-20.0 [facility] Comment on above: Performed By: #### C MP #### [facility] [address] [address] [address] Kena Peterson Urea nitrogen/Creatinine [Mass ratio] 12.2 mg/mg Normal [facility] Comment on above: Performed By: #### C MP #### [facility] [address] [place] [address] LSPINE WO CONon 1 CT LSPINE WO CON EXAM: CT LSPINE [...] by: GLO ANGELA Date: 2021-01-05 00:59 Normal [facility] ARTERIAL BLOOD GAS W/COOXon 05-30-2018 BASE EXCESS 1 mmol/L Normal -2-3 [facility] Comment on above: Performed By: #### 4 0055 #### [facility] [address] [facility] COHB 1.9 % High 0.0-1.5 [facility] Comment on above: Performed By: #### 4 0055 #### [facility] [address] [place] [address], [facility] DELIVERY SYSTEMS VENTILATOR Normal [facility] Comment on above: Performed By: #### 4 0055 #### [facility] [address] [facility] [place], [place] [address] FIO2 100 % Normal [facility] Comment on above: Performed By: #### 4 0055 #### [facility] [address] [place] [address], [facility] HCO3 (Bld) [Moles/Vol] 27 mmol/L Normal 21-28 [facility] Comment on above: Performed By: #### 4 0055 #### [facility] [address] [place] [address], [facility] METHB 0.9 % Normal 0.0-1.5 [facility] Comment on above: Performed By: #### 4 0055 #### [facility] [address] [place] [address], [facility] MIN VOLUME 7.5 Normal [facility] Comment on above: Performed By: #### 4 0055 #### [facility] [address] [place] [address], [facility] MODALITY AC-ASSIST CONTROL Normal [facility] Comment on above: Performed By: #### 4 0055 #### [facility] [address] [place]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 blood on the steering wheel. Upon his evaluation to [facility], he was initially alert and oriented. CT of the head, neck and chest were performed in [facility] and were negative although there are no official reads found on the disk that were sent over to [facility]. While prior to transfer to [facility] for trau (more content not included)... Additional Source Comments (unrecognized sect ion and content) No Status Records FoundNo Status Records FoundNo Status Records FoundNo Status Records FoundNo Status Records FoundNo Status Records Found INFORMATION SOURCE (unrecogn ized section and content) DATE CREATED AUTHOR 02/13/[address] [facility] DATE CREATED AUTHOR AUTHOR'S ORGANIZ ATION 09/29/2018 [facility] DATE CREATED AUTHOR AUTHOR'S ORGANIZ ATION 06/14/2021 [facility] DATE CREATED AUTHOR AUTHOR'S ORGANIZ ATION 05/23/[address] [facility] DATE CREATED AUTHOR AUTHOR'S ORGANIZ ATION 06/15/2023 [facility] DATE CREATED AUTHOR AUTHOR'S ORGANIZ ATION 06/16/2023 [facility] FOR RECORDS PERTAINING TO PATIENTS WHO [...] BE BASED ON THE PRIMARY CLINICAL RECORDS. [employer] provides no warranty or guarantee of the accuracy or completeness of information in this document.
--- NOTE | 2023-06-18 01:05 | ECG_ITS ---
The [facility] Test Date: 2023-06-18 Pat Name: BHUPINDER ZIMMER Department: Room: - Gender: Male Col[employer]er: : 1965 Requested By: [id number] Order Number: [id number] Reading MD: FAITH AGEE Measurements Intervals [place] Rate: 100 P: -71 [place]: 132 QRS: -50 QRSD: 84 T: -62 QT: 334 QTc: 391 Interpretive Statements 1320 inverted P waves inferiorly, can't exclude junctional rhythm 2630 Left anterior fascicular block T wave inversion, can't exclude inferior wall ischemia 9150 abnormal ECG Electronically Signed On 06-18-2023 6:59:18 EDT by FAITH AGEE
--- NOTE | 2023-06-18 01:05 | XR_ITS ---
The [address] [address] Patient Name: BHUPINDER ZIMMER MRN: [id number] date: 1965 Sex: M Assigned Patient Location: ER Current Patient Location: ER Accession/Order Number: [id number] Exam Date: 06/18/2023 01:12 Report Date: 06/18/2023 01:50 At the request of: MICHAEL CROWELL Procedure: XR chest 1V SINGLE VIEW CHEST: 06/18/2023 1:12 AM EDT CLINICAL HISTORY:chest pain COMPARISONS: None. TECHNIQUE: Single frontal view of the chest, utilizing portable technique. Portable radiography should be considered a technically compromised study. Strongly consider dedicated PA and lateral chest radiographs, as clinically indicated. FINDINGS: LINES AND TUBES: Cardiac monitoring leads and wires overlie the patient. CARDIAC SILHOUETTE: Within normal limits. MEDIASTINAL AND HILAR CONTOUR: Within normal limits. PULMONARY PARENCHYMA AND PLEURA: No consolidation, edema, effusion, or pneumothorax. OSSEOUS STRUCTURES:Nothing significant. OTHER COMMENTS:None. XR/XR chest 1V IMPRESSION: No acute cardiopulmonary disease. This report was generated with voice recognition software. Effort has been made to ensure accuracy of this report, however, occasional wording errors may persist. Please contact our office with any questions. Electronically authenticated by: VICTOR MANUEL GARSIA Date: 06/18/2023 01:50
--- NOTE | 2023-06-18 01:07 | ED.CHESTPAI1 ---
HPI - Chest Pain General Chief Complaint: Chest Pain Stated Complaint: chest pain sob Time Seen by Provider: 06/18/23 00:53 History of Present Illness HPI narrative: patient presents complaining of chest pain. Points to left chest and also points to epigastric area. States pain present all day and he also has increased pain with deep breathing and feels short of breath. No nause or vomiting. Risk Factors Coronary artery disease risk factors: smoking history Related Data Allergies Allergy/AdvReac Type Severity Reaction Status Date / Time Penicillins Allergy Severe Verified 06/18/23 00:19 Review of Systems ROS Status of ROS 10 or more systems reviewed and unremarkable except as noted in history and below Exam Constitutional Vital Signs, click to edit/add: Last Vital Signs Temp 98 F 06/18/23 00:10 Pulse 83 06/18/23 05:50 Resp 12 06/18/23 05:50 BP 154/88 H 06/18/23 06:19 Pulse Ox 98 06/18/23 04:40 O2 Del Method Room Air 06/18/23 00:10 Common normals: no apparent distress, average body habitus, oriented x3, no limitations, healthy appearing, alert and well nourished [facility] Common normals: normocephalic and head/scalp atraumatic Eye Common normals: EOMs intact bilaterally and conjunctivae normal Respiratory Common normals: normal respiratory effort, no retractions, no use of accessory muscles and clear to auscultation bilaterally Cardio Common normals: regular rate, regular rhythm, S1 normal heart sound and S2 normal heart sound GI Common normals: Normal to inspection, nondistended, normoactive bowel sounds present and soft to palpation Other: mod epigastric tenderness Extremity Common normals: normal to inspection and full ROM Neuro Common normals: oriented x3, CN's II-XII intact bilaterally, moves all extremities, no focal motor deficits and no sensory deficits noted Psych Appearance: grossly normal Course Vital Signs Vital signs: Vital Signs Temperature 98 F 06/18/23 00:10 Pulse Rate 103 H 06/18/23 00:10 Respiratory Rate 19 06/18/23 00:10 Blood Pressure 158/99 H 06/18/23 00:10 Pulse Oximetry 100 06/18/23 00:10 Oxygen Delivery Method Room Air 06/18/23 00:10 Temperature 98 F 06/18/23 00:10 Pulse Rate 83 06/18/23 05:50 Respiratory Rate 12 06/18/23 05:50 Blood Pressure 154/88 H 06/18/23 06:19 Pulse Oximetry 98 06/18/23 04:40 Oxygen Delivery Method Room Air 06/18/23 00:10 MDM - Chest Pain MDM Narrative Medical decision making narrative: patient presents with epigastric and left sided chestpain. CTs neg. Does have acute elevation of LFTs. patient's pain improved after fentanyl and Toradol . Pain however returned and US ordered and pending. care transferred to Dr Ennis at change of shift Lab Data Labs: Lab Results 06/18/23 Range/Units 00:20 WBC 9.1 (4.0-11.0) 10^3/uL RBC 4.58 L (4.70-6.10) 10^6/uL Hgb 13.3 L (14.0-18.0) g/dL Hct 40.3 L (42.0-54.0) % MCV 88.0 (80.0-94.0) fL MCH 29.0 (25.9-34.0) pg MCHC 33.0 (29.9-35.2) g/dL RDW 13.2 (11.0-15.0) % Plt Count 269 (150-450) 10^3/uL MPV 10.2 (9.5-13.5) fL Neut % (Auto) 63.4 (43.0-75.0) % Lymph % (Auto) 27.5 (20.5-60.0) % Cook % (Auto) 6.0 (1.7-12.0) % Eos % (Auto) 2.4 (0.9-7.0) % Baso % (Auto) 0.5 (0.2-2.0) % Neut # (Auto) 5.8 (1.4-6.5) 10^3/uL Lymph # (Auto) 2.5 (1.2-3.8) 10^3/uL Cook # (Auto) 0.6 (0.3-0.8) 10^3/uL Eos # (Auto) 0.2 (0.0-0.7) 10^3/uL Baso # (Auto) 0.1 (0.0-0.1) 10^3/uL Abs Immat Gran (auto) 0.02 (0.00-0.03) 10^3/uL Imm/Tot Granulo (auto) 0.2 (0.0-0.5) % D-Dimer 0.62 H* (<=0.59) mg/L FEU Sodium 143 (136-145) mmol/L Potassium 3.1 L (3.5-5.1) mmol/L Chloride 106 (98-107) mmol/L Carbon Dioxide 26.2 (21.0-32.0) mmol/L Anion Gap 13.9 BUN 5.0 L (7.0-18.0) mg/dL Creatinine 1.05 (0.70-1.30) mg/dL Est GFR ( Amer) >60 (>=60) Est GFR (Non-Af Amer) >60 (>=60) BUN/Creatinine Ratio 4.8 Glucose 246 H (74-106) mg/dL Calcium 9.6 (8.5-10.1) mg/dL Total Bilirubin 0.1 L (0.2-1.0) mg/dL AST 223 H (15-37) U/L ALT 317 H (16-63) U/L Alkaline Phosphatase 112 (46-116) U/L Troponin I High Sens 6.1 (4.0-76.1) pg/mL Total Protein 7.6 (6.4-8.2) g/dL Albumin 3.6 (3.4-5.0) g/dL Globulin 4.0 g/dL Albumin/Globulin Ratio 0.9 Lipase 79.0 H (16.0-77.0) U/L Discharge Plan Discharge Chief Complaint: Chest Pain Clinical Impression: Abdominal pain Patient Disposition: Still a Patient Print Language: Romanian Referrals: Physician,Non-Staff, MD [Primary Care Provider] - 1 week
[2023-06-18 01:11] LABS: Basophils Absolute Auto 0.1 10^3/uL (0.0-0.1); Basophils Percent Auto 0.5 % (0.2-2.0); Eosinophils Absolute Auto 0.2 10^3/uL (0.0-0.7); Eosinophils Percent Auto 2.4 % (0.9-7.0); Hematocrit 40.3 % (42.0-54.0); Hemoglobin 13.3 g/dL (14.0-18.0); Immature Granulocytes Abs Auto 0.02 10^3/uL (0.00-0.03); Immature Granulocytes Pct Auto 0.2 % (0.0-0.5); Lymphocytes Absolute Auto 2.5 10^3/uL (1.2-3.8); Lymphocytes Percent Auto 27.5 % (20.5-60.0); Mean Platelet Volume 10.2 fL (9.5-13.5); Monocytes Absolute Auto 0.6 10^3/uL (0.3-0.8); Neutrophils Absolute Auto 5.8 10^3/uL (1.4-6.5); Neutrophils Percent Auto 63.4 % (43.0-75.0); Platelet Count 269 10^3/uL (150-450); Red Blood Count 4.58 10^6/uL (4.70-6.10); Red Cell Distribution Width 13.2 % (11.0-15.0); White Blood Count 9.1 10^3/uL (4.0-11.0)
--- NOTE | 2023-06-18 01:18 | CT_ITS ---
The [address] [address] Patient Name: BHUPINDER ZIMMER MRN: [id number] date: 1965 Sex: M Assigned Patient Location: ER Current Patient Location: ER Accession/Order Number: [id number] Exam Date: 06/18/2023 01:37 Report Date: 06/18/2023 02:25 At the request of: MICHAEL CROWELL Procedure: CT angio chest EXAM: CT angio chest HISTORY: chest pain COMPARISON: CT chest examination dated 06/05/2018. TECHNIQUE: Axial angiographic CT images through the chest were obtained after the intravenous administration of contrast. Coronal and sagittal reformats were obtained. Dose reduction techniques were achieved by using automated exposure control and/or adjustment of mA and/or kV according to patient size and/or use of iterative reconstruction technique. FINDINGS: The study is technically adequate with a good contrast bolus to the pulmonary arteries. There are no filling defects or vascular cutoffs to indicate a pulmonary embolus. The pulmonary arteries are normal in size. There are mild emphysematous changes in the lungs. There is mild bibasilar atelectasis. The central airways are patent. No pleural effusion or pneumothorax is seen. The thoracic aorta is normal in course and caliber without evidence of an aneurysm. The cardiac chambers appear normal in size. There is no pericardial effusion. There is no mediastinal, hilar, or axillary lymphadenopathy by CT size criteria. Images through the upper abdomen reveal no significant abnormalities. No suspicious or aggressive bone lesions are seen. No acute fracture is seen. CT/CT angio chest IMPRESSION: 1. No evidence of pulmonary embolism or an acute cardiopulmonary abnormality. 2. Mild emphysematous changes in the lungs. Electronically authenticated by: El SILVEIRA Date: 06/18/2023 02:25
--- NOTE | 2023-06-18 01:18 | CT_ITS ---
The [address] [address] Patient Name: BHUPINDER ZIMMER MRN: [id number] date: 1965 Sex: M Assigned Patient Location: ER Current Patient Location: ER Accession/Order Number: [id number] Exam Date: 06/18/2023 01:37 Report Date: 06/18/2023 02:31 At the request of: MICHAEL CROWELL Procedure: CT abdomen pelvis w con EXAM: CT abdomen pelvis w con HISTORY: abdominal pain COMPARISON: CT abdomen and pelvis examination dated 04/27/2023. TECHNIQUE: Axial CT images through the abdomen and pelvis were obtained after the intravenous administration of contrast. Coronal and sagittal reformats were obtained. Dose reduction techniques were achieved by using automated exposure control and/or adjustment of mA and/or kV according to patient size and/or use of iterative reconstruction technique. FINDINGS: There is mild bibasilar atelectasis. Abdomen: The liver and spleen enhance homogeneously without focal lesion. There is no intra or extrahepatic biliary duct dilatation. The gallbladder is unremarkable. There are bilateral nonobstructive renal calculi measuring up to 0.6 cm on the left. There are a couple subcentimeter hypodensities in the kidneys that are too small to characterize by CT size criteria. The pancreas, adrenal glands, and bowel loops, including the appendix, are unremarkable. There is no mesenteric or retroperitoneal lymphadenopathy. Pelvis: The bladder and rectum are unremarkable. There is no iliac or inguinal lymphadenopathy. There is mild to moderate atherosclerotic disease. Bone windows show no aggressive osseous lesions. CT/CT abdomen pelvis w con IMPRESSION: 1. No specific etiology identified to explain the patient's abdominal pain. 2. Bilateral nonobstructive renal calculi. 3. Normal appendix. Electronically authenticated by: El SILVEIRA Date: 06/18/2023 02:31
[2023-06-18 01:28] LABS: Alanine Aminotransferase 317 U/L (16-63); Albumin Globulin Ratio 0.9; Albumin Level 3.6 g/dL (3.4-5.0); Alkaline Phosphatase 112 U/L (46-116); Anion Gap 13.9; Aspartate Amino Transferase 223 U/L (15-37); BUN Creatinine Ratio 4.8; Bilirubin Total 0.1 mg/dL (0.2-1.0); Calcium 9.6 mg/dL (8.5-10.1); Carbon Dioxide 26.2 mmol/L (21.0-32.0); Chloride 106 mmol/L (98-107); D Dimer 0.62 mg/L FEU (<=0.59); Estimated GFR (African America >60 (>=60); Estimated GFR (Non-African Ame >60 (>=60); Glucose 246 mg/dL (74-106); Potassium 3.1 mmol/L (3.5-5.1); Sodium 143 mmol/L (136-145); Total Protein 7.6 g/dL (6.4-8.2)
[2023-06-18 01:30] LABS: Troponin I High Sensitivity 6.1 pg/mL (4.0-76.1)
[2023-06-18] MEDS: FENTANYL CITRATE/PF 100 MCG/2 ML VIAL 50 MCG IV ×2 (01:30→07:05)
[2023-06-18] MEDS: KETOROLAC TROMETHAMINE 30 MG/ML VIAL IVP (03:05)
--- NOTE | 2023-06-18 05:13 | US_ITS ---
The [address] [address] Patient Name: BHUPINDER ZIMMER MRN: [id number] date: 1965 Sex: M Assigned Patient Location: ED.MAIN Current Patient Location: ER Accession/Order Number: [id number] Exam Date: 06/18/2023 07:00 Report Date: 06/18/2023 07:30 At the request of: MICHAEL CROWELL Procedure: US right upper quadrant EXAM: US right upper quadrant HISTORY: . cholelithiasis . COMPARISON: None. TECHNIQUE: Grayscale and color imaging was performed FINDINGS: The pancreas appears normal. The liver is normal in size. There is mild increased echogenicity of liver. Grossly no masses are noted. Color-flow is noted in the portal and hepatic veins. The gallbladder appears normal with no stones or sludge. Gallbladder wall measures 2 mm. Common bile duct measures 3 mm. Right kidney measures 9.3 x 4.4 x 4 cm. No solid renal cortical masses or hydronephrosis is noted. No fluid is noted in the right upper quadrant. US/US right upper quadrant IMPRESSION: 1. Increased echogenicity of liver consistent with fatty infiltration of liver. 2. The remainder of the right upper quadrant is unremarkable. Electronically authenticated by: RONNIE MENDOSA Date: 06/18/2023 07:30
[2023-06-18] MEDS: FAMOTIDINE 20 MG TABLET PO (07:46)
[2023-06-18] MEDS: POTASSIUM BICARBONATE/CIT 25 MEQ TABLET EFF 50 MEQ PO (07:46)
== END 2023-06-18 08:04 | disposition home or self-care (01) ==
PROVIDERS: Emergency Provider Internal Medicine
DX: R07.9 Chest pain, unspecified (principal); R06.02 Shortness of breath; R10.13 Epigastric pain; K21.9 Gastro-esophageal reflux disease without esophagitis; R79.89 Other specified abnormal findings of blood chemistry; K76.0 Fatty (change of) liver, not elsewhere classified; R10.9 Unspecified abdominal pain
CPT/HCPCS: 36415; 71045; 71275; 74177; 76705; 80053; 83690; 84484; 85025; 85378; 93005; 96374; 96375; 96376; 99285; Q9967

== ENCOUNTER 2023-06-24 01:25 | Emergency (ER) | payer OTHER, SELFPAY ==
[2023-06-24 01:27] VITALS: BP 146/99; PULSE 130; TEMP 36.7; O2SAT 98; BMI 25.2
--- NOTE | 2023-06-24 01:31 | ECG_ITS ---
The [facility] Test Date: 2023-06-24 Pat Name: BHUPINDER ZIMMER Department: Room: - Gender: Male [employer]: : 1965 Requested By: [id number] Order Number: [id number] Reading MD: FAITH AGEE Measurements Intervals [place] Rate: 126 P: 75 TX: 140 QRS: 80 QRSD: 80 T: 31 QT: 318 QTc: 393 Interpretive Statements 1120 Sinus tachycardia 9140 abnormal rhythm ECG Compared to ECG 06/18/2023 00:14:38 Junctional rhythm no longer present Left anterior fascicular block no longer present T-wave abnormality no longer present Possible ischemia no longer present Electronically Signed On 06-24-2023 18:39:55 EDT by FAITH AGEE
--- NOTE | 2023-06-24 01:31 | XR_ITS ---
[address] [address] Patient Name: BHUPINDER ZIMMER MRN: [id number] date: 1965 Sex: M Assigned Patient Location: ER Current Patient Location: ER Accession/Order Number: [id number] Exam Date: 06/24/2023 01:52 Report Date: 06/24/2023 03:16 At the request of: YOKO BURRIS Procedure: XR chest 1V EXAMINATION: XR chest 1V, , 06/24/2023 1:52 AM EDT INDICATION: Altered mental status HISTORY: Ordering Provider Reason for Exam: Altered mental status Technologist Note: Additional: COMPARISON: XR chest 1V Study Date: 06/18/2023 TECHNIQUE: Chest x-ray: One view. FINDINGS: No pneumothorax, pleural effusion or focal airspace consolidation. Heart is normal in size. Bony thorax is unremarkable. XR/XR chest 1V IMPRESSION: No acute cardiopulmonary process. Electronically authenticated by: MAYRA COLINDRES Date: 06/24/2023 03:16
--- OUTSIDE RECORDS SUMMARY | 2023-06-24 01:31 | XMS_ITS | CCD ---
Author Organization [facility] Care Team Providers Care Rn Birthing Name Role Phone VIPIN TORRES Unavailable Unavailable [...] (1 source) Penicillin Drug Allergy 05-30-2018 [facility] Repository (4 sources) Penicillins; Translations: [PENICILLINS] Drug allergy (disorder) 10-29-2015 [facility] Repository (2 sources) Ibuprofen; Translations: [IBUPROFEN] Drug [...] 05-17-2023 Episodic Other aftercare (1 source) Other oil heaterman (current) drug therapy; Translations: [OTH NURSING HOME CURRENT DRUG THERAPY] Onset: 04-29-2021 Episodic Other [...] Mcguire MD on 06/13/2023 3:[address] [facility] BASIC METABOLIC PANLon 05-21 Anion gap [Moles/Vol] 4 mmol/L Low 5-15 [facility] Comment on above: Performed By: #### C CHRISTINE [facility], 3040-3 #### [facility] ([id number]) [address] [place] [address] 68367 Calcium [Mass/Vol] 8.3 mg/dL Low 8.5-10.5 [facility] Comment on above: Performed By: #### C CHRISTINE [facility], 3040-3 #### [facility] ([id number]) [address] [place] [address] 07998 Chloride [Moles/Vol] 109 mmol/L Normal 98-109 [facility] Comment on above: Performed By: #### C CHRISTINE CMP, 3040-3 #### [facility] ([id number]) [address] [place] [address] 21248 CO2 [Moles/Vol] 23 mmol/L Normal 22-32 [facility] Comment on above: Performed By: #### C CHRISTINE [facility], 3040-3 #### [facility] ([id number]) [address] [place] [address] 36885 Creatinine [Mass/Vol] 0.86 mg/dL Normal 0.70-1.20 [facility] Comment on above: Result Comment: METH OD TRACEABLE TO IDMS STANDARD Performed By: #### C ZEE KING, 3 #### [facility] ([id number]) [address] [place] [address] 44269 eGFR (CKD-EPI) NON-RACE DEPENDENT >90 Normal >59 [facility] Comment on above: Result Comment: Reported eGFR is based on the CKD-EPI 2020 equation that does not use a race coefficient. Performed By: #### C ZEE KING, 3 #### [facility] ([id number]) [address] [place] [address] 85697 Glucose [Mass/Vol] 82 mg/dL Normal 65-99 [facility] Comment on above: Performed By: #### C CHRISTINE [facility], 3 #### [facility] ([id number]) [address] [place] [address] 85875 Potassium [Moles/Vol] 3.6 mmol/L Normal 3.5-5.0 [facility] Comment on above: Performed By: #### C ZEE KING, 3 #### [facility] ([id number]) [address] [place] [address] 97778 Sodium [Moles/Vol] 136 mmol/L Normal 134-146 [facility] Comment on above: Performed By: #### C ZEE KING, 3 #### [facility] ([id number]) [address] [place] [address] 90130 Urea nitrogen [Mass/Vol] 17 mg/dL Normal 5-23 [facility] Comment on above: Performed By: #### C BCA, CMP, 3040-3 #### [facility] ([id number]) [address] [place] [address] 96265 CBC AND AUTO DIFFon 05-22-19 24 ABSOLUTE BASOPHIL 0.1 X10E9/L Normal 0.0-0.2 [facility] Comment on above: Performed By: #### C BCA, 69204-7, CMP, 5643-2, 47535-2, 2157- 6, 55519-7, 2639-3, 21193-7, THYR #### [facility] ([id number]) [address] [place] [address] 07856 ABSOLUTE NEUTROPHIL 8.6 X10E9/L High 1.5-6.6 [facility] Comment on above: Performed By: #### C BCA, 59634-1, CMP, 5643-2, 71211-0, 2157- 6, 31012-9, 2639-3, 55530-9, THYR #### [facility] ([id number]) [address] [place] [address] 92235 Basophils/100 WBC (Bld) 0.6 % Normal [facility] Comment on above: Performed By: #### C BCA, 24758-0, CMP, 5643-2, 80411-0, 2157- 6, 55300-6, 2639-3, 77882-1, THYR #### [facility] ([id number]) [address] [place] [address] 27439 Eosinophils (Bld) [#/Vol] 0.1 10*3/uL Normal 0.0-0.4 [facility] Comment on above: Performed By: #### C BCA, 76722-2, CMP, 5643-2, 43347-8, 2157- 6, 36221-2, 2639-3, 02329-2, THYR #### [facility] ([id number]) [address] [place] [address], [place] [address] Eosinophils/100 WBC (Bld) 0.7 % Normal [facility] Comment on above: Performed By: #### C BCA, 74591-5, CMP, 5643-2, 76491-9, 2157- 6, 36908-6, 2639-3, 07250-3, THYR #### [facility] ([id number]) [address] [place] [address] 82722 Erythrocyte distribution width (RBC) [Ratio] 13.2 % Normal 11.5-15.0 [facility] Comment on above: Performed By: #### C CHRISTINE, 67854-8, CMP, 5643-2, 91131-2, 2157- 6, 52419-5, 2639-3, 03373-0, THYR #### [facility] ([id number]) [address] [place] [address] 75130 Hematocrit (Bld) [Volume fraction] 38.7 % Low 39-49 [facility] Comment on above: Performed By: #### C BCA, 41278-4, CMP, 5643-2, 72168-5, 2157- 6, 74201-7, 2639-3, 06758-6, THYR #### [facility] ([id number]) [address] [place] [address] 77155 Hemoglobin (Bld) [Mass/Vol] 13.4 g/dL Normal 13.0-17.0 [facility] Comment on above: Performed By: #### C BCA, 83758-7, CMP, 5643-2, 04640-9, 2157- 6, 68263-9, 2639-3, 07558-1, THYR #### [facility] ([id number]) [address] [place] [address] 83162 Lymphocytes (Bld) [#/Vol] 2.1 10*3/uL Normal 1.0-3.5 [facility] Comment on above: Performed By: #### C BCA, 50509-1, CMP, 5643-2, 62784-9, 2157- 6, 40799-2, 2639-3, 49070-2, THYR #### [facility] ([id number]) [address] [place] [address] 02850 Lymphocytes/100 WBC (Bld) 18.2 % Normal [facility] Comment on above: Performed By: #### C BCA, 19201-2, CMP, 5643-2, 79181-3, 2157- 6, 43041-5, 2639-3, 92719-8, THYR #### [facility] ([id number]) [address] [place] [address] 17049 MCH (RBC) [Entitic mass] 29.3 pg Normal 27-34 [facility] Comment on above: Performed By: #### C BCA, 62181-9, CMP, 5643-2, 83998-4, 2157- 6, 56101-2, 2639-3, 20287-4, THYR #### [facility] ([id number]) [address] [place] [address] 09137 MCHC (RBC) [Mass/Vol] 34.5 g/dL Normal 32-36 [facility] Comment on above: Performed By: #### C BCA, 68512-8, CMP, 5643-2, 14429-5, 2157- 6, 00086-8, 2639-3, 50455-7, THYR #### [facility] ([id number]) [address] [place] [address] 23699 MCV (RBC) [Entitic vol] 85 fL Normal 80-100 [facility] Comment on above: Performed By: #### C BCA, 28438-0, CMP, 5643-2, 51586-9, 2157- 6, 06303-9, 2639-3, 39429-9, THYR #### [facility] ([id number]) [address] [place] [address] 66156 Monocytes (Bld) [#/Vol] 0.5 10*3/uL Normal 0-0.9 [facility] Comment on above: Performed By: #### C BCA, 81452-2, CMP, 5643-2, 65962-4, 2157- 6, 02937-9, 2639-3, 32778-9, THYR #### [facility] ([id number]) [address] [place] [address] 67581 Monocytes/100 WBC (Bld) 4.8 % Normal [facility] Comment on above: Performed By: #### C BCA, 00249-8, CMP, 5643-2, 81132-4, 2157- 6, 91877-1, 2639-3, 46904-2, THYR #### [facility] ([id number]) [address] [place] [address] 24213 Neutrophils/100 WBC (Bld) 75.7 % Normal [facility] Comment on above: Performed By: #### C BCA, 87643-5, CMP, 5643-2, 84427-7, 2157- 6, 54838-3, 2639-3, 27796-4, THYR #### [facility] ([id number]) [address] [place] [address] 15569 Platelet mean volume (Bld) [Entitic vol] 8.3 fL Normal 7-12 [facility] Comment on above: Performed By: #### C BCA, 04959-0, CMP, 5643-2, 26209-3, 2157- 6, 77999-3, 2639-3, 01619-8, THYR #### [facility] ([id number]) [address] [place] [address] 28063 Platelets (Bld) [#/Vol] 218 10*3/uL Normal 150-450 [facility] Comment on above: Performed By: #### C BCA, 08467-7, CMP, 5643-2, 55236-6, 2157- 6, 75200-7, 2639-3, 88092-2, THYR #### [facility] ([id number]) [address] [place] [address] 09965 RBC COUNT 4.56 X10E12/L Normal 4.10-5.70 [facility] Comment on above: Performed By: #### C BCA, 62258-5, CMP, 5643-2, 42901-7, 2157- 6, 24054-8, 2639-3, 83992-3, THYR #### [facility] ([id number]) [address] [place] [address] 38218 WBC (Bld) [#/Vol] 11.4 10*3/uL High 4.0-11.0 [facility] Comment on above: Performed By: #### C BCA, 38967-9, CMP, 5643-2, 50376-0, 2157- 6, 83672-1, 2639-3, 84106-6, THYR #### [facility] ([id number]) [address] [place] [address] 40270 CK [Catalytic activity/Vol]o n 05-22-2023 CPK 392 U/L High 24-195 [facility] Comment on above: Performed By: #### C BCA, 06968-6, CMP, 5643-2, 67885-1, 2157- 6, 66714-4, 2639-3, 75431-9, THYR #### [facility] ([id number]) [address] [place] [address] 55890 COMPREHENSIVE METABOLIC PANE Trent 05-22-2023 Albumin [Mass/Vol] 4.2 g/dL Normal 3.2-5.3 [facility] Comment on above: Performed By: #### C BCA, 64927-5, CMP, 5643-2, 54946-5, 2157- 6, 05984-3, 2639-3, 30852-7, THYR #### [facility] ([id number]) [address] [place] [address] [place] [address] ALP [Catalytic activity/Vol] 89 U/L Normal 39-130 [facility] Comment on above: Performed By: #### C BCA, 90535-1, CMP, 5643-2, 89830-2, 2157- 6, 68641-0, 2639-3, 22197-6, THYR #### [facility] ([id number]) [address] [place] [address] 82914 ALT [Catalytic activity/Vol] 29 U/L Normal 0-40 [facility] Comment on above: Performed By: #### C BCA, 24656-4, CMP, 5643-2, 04867-1, 2157- 6, 36377-8, 2639-3, 70780-6, THYR #### [facility] ([id number]) [address] [place] [address] [place] [address] Anion gap [Moles/Vol] 8 mmol/L Normal 5-15 [facility] Comment on above: Performed By: #### C BCA, 99960-8, CMP, 5643-2, 53230-5, 2157- 6, 18570-1, 2639-3, 84642-9, THYR #### [facility] ([id number]) [address] [place] [address] [place] [address] AST [Catalytic activity/Vol] 25 U/L Normal 0-41 [facility] Comment on above: Performed By: #### C BCA, 90196-6, CMP, 5643-2, 50251-9, 2157- 6, 75532-7, 2639-3, 08974-0, THYR #### [facility] ([id number]) [address] [place] [address], [place] [address] Bilirubin [Mass/Vol] 0.5 mg/dL Normal 0.3-1.2 [facility] Comment on above: Performed By: #### C BCA, 25098-2, CMP, 5643-2, 55862-0, 2157- 6, 35364-1, 2639-3, 46677-1, THYR #### [facility] ([id number]) [address] [place] [address] [place] [address] Calcium [Mass/Vol] 8.5 mg/dL Normal 8.5-10.5 [facility] Comment on above: Performed By: #### C BCA, 33548-6, CMP, 5643-2, 49601-3, 2157- 6, 06507-1, 2639-3, 63204-5, THYR #### [facility] ([id number]) [address] [place] [address] [place] [address] Chloride [Moles/Vol] 103 mmol/L Normal 98-109 [facility] Comment on above: Performed By: #### C BCA, 60372-9, CMP, 5643-2, 40124-9, 2157- 6, 52781-2, 2639-3, 51587-0, THYR #### [facility] ([id number]) [address] [place] [address] [place] [address] CO2 [Moles/Vol] 23 mmol/L Normal 22-32 [facility] Comment on above: Performed By: #### C BCA, 64644-1, CMP, 5643-2, 79550-2, 2157- 6, 16290-6, 2639-3, 12852-3, THYR #### [facility] ([id number]) [address] [place] [address], [place] [address] Creatinine [Mass/Vol] 1.12 mg/dL Normal 0.70-1.20 [facility] Comment on above: Result Comment: METH OD TRACEABLE TO IDMS STANDARD Performed By: #### C BCA, 35827-1, CMP, 5643-2, 48472-0, 2157-6, 15454-9, 2639-3, 35493-7, THYR #### [facility] ([id number]) [address] [place] [address] 02544 GFR/1.73 sq M.predicted among non-blacks MDRD (S/P/Bld) [Vol rate/Area] 77 mL/min/{1.73_m2} Normal >59 [facility] Comment on above: Result Comment: Reported eGFR is based on the CKD-EPI 2020 equation that does not use a race coefficient. Performed By: #### C BCA, 77591-1, CMP, 5643-2, 60761-7, 2157-6, 45204-6, 2639-3, 35433-7, THYR #### [facility] ([id number]) [address] [place] [address] 24083 Glucose [Mass/Vol] 271 mg/dL High 65-99 [facility] Comment on above: Performed By: #### C BCA, 42088-7, CMP, 5643-2, 42856-0, 2157- 6, 75624-9, 2639-3, 82645-8, THYR #### [facility] ([id number]) [address] [place] [address] 26372 Potassium [Moles/Vol] 2.9 mmol/L Low 3.5-5.0 [facility] Comment on above: Performed By: #### C BCA, 06367-5, CMP, 5643-2, 71758-2, 2157- 6, 03279-5, 2639-3, 69581-2, THYR #### [facility] ([id number]) [address] [place] [address] 10874 Protein [Mass/Vol] 7.5 g/dL Normal 6.0-8.0 [facility] Comment on above: Performed By: #### C BCA, 42762-9, CMP, 5643-2, 67984-9, 2157- 6, 08943-0, 2639-3, 13726-5, THYR #### [facility] ([id number]) [address] [place] [address] 86403 Sodium [Moles/Vol] 134 mmol/L Normal 134-146 [facility] Comment on above: Performed By: #### C BCA, 09271-1, CMP, 5643-2, 57432-4, 2157- 6, 63658-7, 2639-3, 66497-0, THYR #### [facility] ([id number]) [address] [place] [address] 08830 Urea nitrogen [Mass/Vol] 22 mg/dL Normal 5-23 [facility] Comment on above: Performed By: #### C BCA, 06349-5, CMP, 5643-2, 90361-9, 7- 6, 73281-9, 2639-3, 06423-5, THYR #### [facility] ([id number]) [address] [place] [address] 49503 DRUG SCREEN, URINEon 024 AMPHETAMINE/METHAMP Positive Abnormal NEG [facility] Comment on above: Result Comment: Conf irmation available upon request. AMPH/METH screening cut off = 1000 ng/mL Performed By: #### Pawel KING, [facility], 3040-3 #### [facility] ([id number]) [address] [place] [address] 91310 BARBITURATES Negative Normal NEG [facility] Comment on above: Result Comment: Shurthi iturates screening cut off value = 200 ng/mL Performed By: #### Pawel KING, ZEE, 3040-3 #### [facility] ([id number]) [address] [place] [address] [place] [address] BENZODIAZEPINES Positive Abnormal NEG [facility] Comment on above: Result Comment: Conf irmation available upon request. Benzodiazepines screening cut off value = 200 ng/mL Performed By: #### C ZEE KING, 3040-3 #### [facility] ([id number]) [address] [place] [address] 21242 CANNABINOIDS Positive Abnormal NEG [facility] Comment on above: Result Comment: Conf irmation available upon request. Cannabinoids/THC screening cut off value = 50 ng/mL Performed By: #### C ZEE KING, 0-3 #### [facility] ([id number]) [address] [place] [address] 76401 COCAINE METABOLITE Negative Normal NEG [facility] Comment on above: Result Comment: Coca ine screening cut off value = 300 ng/mL Performed By: #### C ZEE KING, 3039-3 #### [facility] ([id number]) [address] [place] [address] 67011 ECSTASY Negative Normal NEG [facility] Comment on above: Result Comment: Ecst asy screening cut off value = 500 ng/mL This report is intended for use in clinical monitoring or management of patients. Performed By: #### C ZEE KING, 3039-3 #### [facility] ([id number]) [address] [place] [address] 06616 METHADONE Negative Normal NEG [facility] Comment on above: Result Comment: Meth adone screening cut off value = 300 ng/mL. Performed By: #### Pawel KING CMP, 0-3 #### [facility] ([id number]) [address] [place] [address] 98500 OPIATES Positive Abnormal NEG [facility] Comment on above: Result Comment: Conf irmation available upon request. Opiates screening cut off value = 300 ng/mL NOTE: This test is used for the detection of codeine, hydrocodone (>1000 ng/mL), morphine and hydromorphone (>900 ng/mL) in urine. Performed By: #### C ZEE KING, 3040-3 #### [facility] ([id number]) [address] [place] [address] 55325 OXYCODONE Negative Normal NEG [facility] Comment on above: Result Comment: Oxyc odone screening cut off value = 300 ng/mL NOTE: This test is used for the detection of oxycodone and oxymorphone in urine. Performed By: #### C BCA, ZEE, 3040-3 #### [facility] ([id number]) [address] [place] [address] 53123 PHENCYCLIDINE Negative Normal NEG [facility] Comment on above: Result Comment: Phen cyclidine screening cut off value = 25 ng/mL Performed By: #### C CHRISTINE, ZEE, 3040-3 #### [facility] ([id number]) [address] [place] [address] 15358 ETHANOLon 05-22-2023 Ethanol [Mass/Vol] mg/dL Normal 0.00-0.08 [facility] Comment on above: Result Comment: This report is intended for use in clinical monitoring or management of patients. Performed By: #### C BCA, 12902-6, CMP, 5643-2, 34980-5, 2157-6, 67283-4, 2639-3, 82723-3, THYR #### [facility] ([id number]) [address] [place] [address] 74306 Alf Documentson 05-22-2023 Alf Documents [id number]# 1.00TIFF Normal [facility] Lactate (P anne-marie) [Moles/Vol]o n 05-22-2023 Lactate [Moles/Vol] 2.1 mmol/L High 0.4-2.0 [facility] Comment on above: Performed By: #### C BCA, CMP, 3040-3 #### [facility] ([id number]) [address] [place] [address] 53366 LACTATE W/REFLEX 5.0 mmol/L Critically high 0.4-2.0 [facility] Comment on above: Performed By: #### C BCA, 28189-0, CMP, 5643-2, 60684-5, 2157- 6, 75906-2, 2639-3, 86804-3, THYR #### [facility] ([id number]) [address] [place] [address] 89420 MAGNESIUMon 05-22-2023 Magnesium [Mass/Vol] 2.0 mg/dL Normal 1.8-2.6 [facility] Comment on above: Performed By: #### C CHRISTINE, 76243-3, CMP, 5643-2, 86619-6, 7- 6, 66755-5, 2639-3, 45071-1, THYR #### [facility] ([id number]) [address] [place] [address] 95367 Myoglobin [Mass/Vol]on 05-21 SERUM MYOGLOBIN 49.9 ng/mL Normal 17.4-105.7 [facility] Comment on above: Performed By: #### C CHRISTINE, ZEE, 3040-3 #### [facility] ([id number]) [address] [place] [address] 67661 Natriuretic peptide B [Mass/ Vol]on 05-22-2023 BRN NATRIURETIC PEP <5 Normal <100.0 [facility] Comment on above: Performed By: #### C BCA, 15529-0, CMP, 5643-2, 07181-5, 7- 6, 82219-1, 2639-3, 30611-7, THYR #### [facility] ([id number]) [address] [place] [address] 21139 THYROID PROFILEon 05-22-2023 Free T4 [Mass/Vol] 1.17 ng/dL Normal 0.61-1.60 [facility] Comment on above: Performed By: #### C CHRISTINE, CMP, 3040-3 #### [facility] ([id number]) [address] [place] [address] 12840 TSH 3.43 uIU/mL Normal 0.49-4.67 [facility] Comment on above: Performed By: #### Pawel KING CMP, 0-3 #### [facility] ([id number]) [address] [place] [address] 86171 Troponin I.cardiac High sens itivity method [Mass/Vol]on 05-22-2023 1 HOUR TROP I, HIGH SENSITIVITY 2 ng/L Normal <21 [facility] Comment on above: Performed By: #### Pawel KING CMP, 3 #### [facility] ([id number]) [address] [place] [address] 05385 TROPONIN I, HIGH SENSITIVITY 3 ng/L Normal <21 [facility] Comment on above: Performed By: #### Pawel KING [facility], 3 #### [facility] ([id number]) [address] [place] [address] 25199 URN MACROSCOPIC NURon 2023 BILIRUBIN DEBORAH Negative Normal NEG [facility] Comment on above: Performed By: #### Pawel KING CMP, 3039-3 #### [facility] ([id number]) [address] [place] [address] 63928 BLOOD/HGB DEBORAH Negative Normal NEG [facility] Comment on above: Performed By: #### Pawel KING, ZEE, 0-3 #### [facility] ([id number]) [address] [place] [address] 25565 GLUCOSE DEBORAH 500 mg/dL Abnormal NEG [facility] Comment on above: Performed By: #### Pawel KING CMP, 0-3 #### [facility] ([id number]) [address] [place] [address] [place] [address] KETONES DEBORAH Negative Normal NEG [facility] Comment on above: Performed By: #### C CHRISTINE CMP, 3039-3 #### [facility] ([id number]) [address] [place] [address] 17857 LEUKOCYTE ESTERASE DEBORAH Negative Normal NEG [facility] Comment on above: Performed By: #### C CHRISTINE CMP, 3039-3 #### [facility] ([id number]) [address] [place] [address] 87891 NITRITE DEBORAH Negative Normal NEG [facility] Comment on above: Performed By: #### C CHRISTINE CMP, 3039-3 #### [facility] ([id number]) [address] [place] [address] 51705 PH DEBORAH 6.0 Normal 5.0-8.5 [facility] Comment on above: Performed By: #### Pawel KING CMP, 3039-3 #### [facility] ([id number]) [address] [place] [address] 75229 PROTEIN DEBORAH Negative Normal NEG [facility] Comment on above: Performed By: #### Pawel KING CMP, 3 #### [facility] ([id number]) [address] [place] [address] 64971 SPECIFIC GRAVITY DEBORAH 1.015 Normal 1.003-1.035 [facility] Comment on above: Performed By: #### Pawel KING CMP, 3039-3 #### [facility] ([id number]) [address] [place] [address] [place] [address] UROBILINOGEN DEBORAH 0.2 eu/dL Normal <1.1 [facility] Comment on above: Performed By: #### Pawel KING CMP, 3039-3 #### [facility] ([id number]) [address] [place] [address] 73180 CBC AND AUTO DIFFon 05-17-19 24 ABSOLUTE BASOPHIL 0.1 X10E9/L Normal 0.0-0.2 [facility] Comment on above: Performed By: #### Pawel KING CMP, 3039-04 #### [facility] ([id number]) [address] [place] [address] 89274 ABSOLUTE NEUTROPHIL 3.9 X10E9/L Normal 1.5-6.6 [facility] Comment on above: Performed By: #### Pawel KING CMP, 3039-04 #### [facility] ([id number]) [address] [place] [address] 84033 Basophils/100 WBC (Bld) 1.1 % Normal [facility] Comment on above: Performed By: #### Pawel KING CMP, 3039-04 #### [facility] ([id number]) [address] [place] [address] 28710 Eosinophils (Bld) [#/Vol] 0.1 10*3/uL Normal 0.0-0.4 [facility] Comment on above: Performed By: #### Pawel KING CMP, 3039-04 #### [facility] ([id number]) [address] [place] [address] 19604 Eosinophils/100 WBC (Bld) 1.9 % Normal [facility] Comment on above: Performed By: #### Pawel KING CMP, 3039-04 #### [facility] ([id number]) [address] [place] [address] 26455 Erythrocyte distribution width (RBC) [Ratio] 13.5 % Normal 11.5-15.0 [facility] Comment on above: Performed By: #### Pawel KING CMP, 3039-04 #### [facility] ([id number]) [address] [place] [address] 26648 Hematocrit (Bld) [Volume fraction] 43.5 % Normal 39-49 [facility] Comment on above: Performed By: #### Pawel KING CMP, 3040-3 #### [facility] ([id number]) [address] [place] [address] 53871 Hemoglobin (Bld) [Mass/Vol] 14.9 g/dL Normal 13.0-17.0 [facility] Comment on above: Performed By: #### Pawel KING CMP, 3039-3 #### [facility] ([id number]) [address] [place] [address] 59684 Lymphocytes (Bld) [#/Vol] 1.4 10*3/uL Normal 1.0-3.5 [facility] Comment on above: Performed By: #### Pawel KING CMP, 3039-04 #### [facility] ([id number]) [address] [place] [address] 56186 Lymphocytes/100 WBC (Bld) 23.2 % Normal [facility] Comment on above: Performed By: #### Pawel KING CMP, 3 #### [facility] ([id number]) [address] [place] [address] 66216 MCH (RBC) [Entitic mass] 29.3 pg Normal 27-34 [facility] Comment on above: Performed By: #### Pawel KING CMP, 3039-04 #### [facility] ([id number]) [address] [place] [address] 36873 MCHC (RBC) [Mass/Vol] 34.2 g/dL Normal 32-36 [facility] Comment on above: Performed By: #### Pawel KING CMP, 3 #### [facility] ([id number]) [address] [place] [address] 29184 MCV (RBC) [Entitic vol] 86 fL Normal 80-100 [facility] Comment on above: Performed By: #### Pawel KING CMP, 3039-3 #### [facility] ([id number]) [address] [place] [address] [place] [address] Monocytes (Bld) [#/Vol] 0.6 10*3/uL Normal 0-0.9 [facility] Comment on above: Performed By: #### Pawel KING CMP, 3039-3 #### [facility] ([id number]) [address] [place] [address] 31061 Monocytes/100 WBC (Bld) 9.2 % Normal [facility] Comment on above: Performed By: #### Pawel KING CMP, 3039-04 #### [facility] ([id number]) [address] [place] [address] 25815 Neutrophils/100 WBC (Bld) 64.6 % Normal [facility] Comment on above: Performed By: #### Pawel KING CMP, 3039-04 #### [facility] ([id number]) [address] [place] [address] 32806 Platelet mean volume (Bld) [Entitic vol] 8.2 fL Normal 7-12 [facility] Comment on above: Performed By: #### Pawel KING CMP, 3039-04 #### [facility] ([id number]) [address] [place] [address] 17266 Platelets (Bld) [#/Vol] 271 10*3/uL Normal 150-450 [facility] Comment on above: Performed By: #### Pawel KING CMP, 3039-04 #### [facility] ([id number]) [address] [place] [address] 70904 RBC COUNT 5.07 X10E12/L Normal 4.10-5.70 [facility] Comment on above: Performed By: #### Pawel KING CMP, 3039-04 #### [facility] ([id number]) [address] [place] [address] 89161 WBC (Bld) [#/Vol] 6.0 10*3/uL Normal 4.0-11.0 [facility] Comment on above: Performed By: #### C BCA, CMP, 3039-3 #### [facility] ([id number]) [address] [place] [address] 02160 COMPREHENSIVE METABOLIC PANE [place] 05-17-2023 Albumin [Mass/Vol] 4.8 g/dL Normal 3.2-5.3 [facility] Comment on above: Performed By: #### C CHRISTINE, CMP, 3039-3 #### [facility] ([id number]) [address] [place] [address] 36966 ALP [Catalytic activity/Vol] 103 U/L Normal 39-130 [facility] Comment on above: Performed By: #### Pawel BCA, CMP, 3 #### [facility] ([id number]) [address] [place] [address] 25674 ALT [Catalytic activity/Vol] 35 U/L Normal 0-40 [facility] Comment on above: Performed By: #### C BCA, CMP, 3 #### [facility] ([id number]) [address] [place] [address] 55600 Anion gap [Moles/Vol] 5 mmol/L Normal 5-15 [facility] Comment on above: Performed By: #### C CHRISTINE, CMP, 3039-3 #### [facility] ([id number]) [address] [place] [address] 45993 AST [Catalytic activity/Vol] 23 U/L Normal 0-41 [facility] Comment on above: Performed By: #### Pawel BCA, CMP, 3039-3 #### [facility] ([id number]) [address] [place] [address] 38007 Bilirubin [Mass/Vol] 0.6 mg/dL Normal 0.3-1.2 [facility] Comment on above: Performed By: #### Pawel BCA, CMP, 3039-3 #### [facility] ([id number]) [address] [place] [address] 82814 Calcium [Mass/Vol] 9.3 mg/dL Normal 8.5-10.5 [facility] Comment on above: Performed By: #### C ZEE KING, 3039-3 #### [facility] ([id number]) [address] [place] [address] 29065 Chloride [Moles/Vol] 107 mmol/L Normal 98-109 [facility] Comment on above: Performed By: #### Pawel KING CMP, 3039-3 #### [facility] ([id number]) [address] [place] [address] 14220 CO2 [Moles/Vol] 25 mmol/L Normal 22-32 [facility] Comment on above: Performed By: #### Pawel KING CMP, 3039-3 #### [facility] ([id number]) [address] [place] [address] 25632 Creatinine [Mass/Vol] 0.87 mg/dL Normal 0.70-1.20 [facility] Comment on above: Result Comment: METH OD TRACEABLE TO IDMS STANDARD Performed By: #### C ZEE KING, 3039-3 #### [facility] ([id number]) [address] [place] [address] 91165 eGFR (CKD-EPI) NON-RACE DEPENDENT >90 Normal >59 [facility] Comment on above: Result Comment: Reported eGFR is based on the CKD-EPI 2020 equation that does not use a race coefficient. Performed By: #### Pawel KING CMP, 3039-3 #### [facility] ([id number]) [address] [place] [address] 32778 Glucose [Mass/Vol] 102 mg/dL High 65-99 [facility] Comment on above: Performed By: #### Pawel KING CMP, 3039-3 #### [facility] ([id number]) [address] [place] [address] 12178 Potassium [Moles/Vol] 3.9 mmol/L Normal 3.5-5.0 [facility] Comment on above: Performed By: #### C CHRISTINE CMP, 3040-3 #### [facility] ([id number]) [address] [place] [address] 07626 Protein [Mass/Vol] 8.6 g/dL High 6.0-8.0 [facility] Comment on above: Performed By: #### C CHRISTINE [facility], 3040-3 #### [facility] ([id number]) [address] [place] [address] 91021 Sodium [Moles/Vol] 137 mmol/L Normal 134-146 [facility] Comment on above: Performed By: #### Pawel KING [facility], 3040-3 #### [facility] ([id number]) [address] [place] [address] 07774 Urea nitrogen [Mass/Vol] 16 mg/dL Normal 5-23 [facility] Comment on above: Performed By: #### Pawel KING [facility], 3040-3 #### [facility] ([id number]) [address] [place] [address] 27955 LIPASEon 05-17-2023 Lipase [Catalytic activity/Vol] 47 U/L High 17-40 [facility] Comment on above: Performed By: #### Pawel KING, CMP, 3040-3 #### [facility] ([id number]) [address] [place] [address] ABD/PELVIS WO CONon 05-23 CT ABD/PELVIS [...] IBAN MORTON Date: 2021-05-23 11:44 Normal [facility] LEAD,ADULTon 04-30-2021 Lead, Blood (Adult) 5 ug/dL Critically high 0-4 [facility] Comment on above: Result Comment: Anal ysis by inductively coupled plasma/mass spectrometry (ICP/MS) Environmental Exposure: WHO Recommendation <20 Occupational Exposure: OSHA Lead Std 40 MIGUEL A 30 . Detection Limit = 1 Performed By: #### L EADA #### [facility] [address] [address] [address] Kena Peterson CBC AUTO DIFFon 04-28-2021 BASO # 0.0 103/ul Normal 0.0-0.1 [facility] Comment on above: Performed By: #### C BC #### [facility] [address] [address] [address] Kena Peterson Basophils/100 WBC (Bld) 0.5 % Normal 0.2-2.0 [facility] Comment on above: Performed By: #### C BC #### [facility] [address] [place] [address] Dr. Kena Peterson EO # 0.4 103/ul Normal 0.0-0.7 [facility] Comment on above: Performed By: #### C BC #### [facility] [address] [place] [address] Dr. Kena Peterson Eosinophils/100 WBC (Bld) 4.5 % Normal 0.9-7.0 [facility] Comment on above: Performed By: #### C BC #### [facility] [address] [place] [address] Dr. Kena Peterson Erythrocyte distribution width (RBC) [Ratio] 12.2 % Normal 11.0-15.0 [facility] Comment on above: Performed By: #### C BC #### [facility] [address] [place] [address] Dr. Kena Peterson Hematocrit (Bld) [Volume fraction] 40.2 % Critically low 42.0-54.0 [facility] Comment on above: Performed By: #### C BC #### [facility] [address] [place] [address] Dr. Kena Peterson Hemoglobin (Bld) [Mass/Vol] 13.3 g/dL Critically low 14.0-18.0 [facility] Comment on above: Performed By: #### C BC #### [facility] [address] [place] [address] Dr. Kena Peterson IG # 0.02 10e3/ul Normal 0.00-0.03 [facility] Comment on above: Performed By: #### C BC #### [facility] [address] [place] [address] Dr. Kena Peterson IG % 0.2 % Normal 0.0-0.5 [facility] Comment on above: Performed By: #### C BC #### [facility] [address] [place] [address] Dr. Kena Peterson LYMPH # 2.3 103/ul Normal 1.2-3.8 [facility] Comment on above: Performed By: #### C BC #### [facility] [address] [place] [address] Dr. Kena Peterson Lymphocytes/100 WBC (Bld) 26.8 % Normal 20.5-60.0 [facility] Comment on above: Performed By: #### C BC #### [facility] [address] [place] [address] Dr. Kena Peterson MANUAL DIFF REQ NO Normal [facility] Comment on above: Performed By: #### C BC #### [facility] [address] [place] [address] Dr. Kena Peterson MCH (RBC) [Entitic mass] 29.3 pg Normal 25.9-34.0 [facility] Comment on above: Performed By: #### C BC #### [facility] [address] [place] [address] Dr. Kena Peterson MCHC (RBC) [Mass/Vol] 33.1 g/dL Normal 29.9-35.2 [facility] Comment on above: Performed By: #### C BC #### [facility] [address] [place] [address] Dr. Kena Peterson MCV (RBC) [Entitic vol] 88.5 fL Normal 80.0-94.0 [facility] Comment on above: Performed By: #### C BC #### [facility] [address] [place] [address] Dr. Kena Peterson MONO # 0.7 103/ul Normal 0.3-0.8 [facility] Comment on above: Performed By: #### C BC #### [facility] [address] [place] [address] Dr. Kena Peterson Monocytes/100 WBC (Bld) 7.7 % Normal 1.7-12.0 [facility] Comment on above: Performed By: #### C BC #### [facility] [address] [place] [address] Dr. Kena Peterson NEUT # 5.1 103/ul Normal 1.4-6.5 [facility] Comment on above: Performed By: #### C BC #### [facility] [address] [place] [address] Dr. Kena Peterson Neutrophils/100 WBC (Bld) 60.3 % Normal 43.0-75.0 [facility] Comment on above: Performed By: #### C BC #### [facility] [address] [place] [address] Dr. Kena Peterson Platelet mean volume (Bld) [Entitic vol] 9.9 fL Normal 9.5-13.5 [facility] Comment on above: Performed By: #### C BC #### [facility] [address] [place] [address] Dr. Kena Peterson PLT 215 103/ul Normal 150-450 [facility] Comment on above: Performed By: #### C BC #### [facility] [address] [place] [address] Dr. Kena Peterson RBC 4.54 106/ul Critically low 4.70-6.10 [facility] Comment on above: Performed By: #### C BC #### [facility] [address] [place] [address] Dr. Kena Peterson WBC 8.4 103/ul Normal 4.0-11.0 [facility] Comment on above: Performed By: #### C BC #### [facility] [address] [place] [address] Dr. Kena Peterson ER URINE PROFILEon 2 Bilirubin Ql (U) Negative Normal NEGATIVE [facility] Comment on above: Performed By: #### E RUR #### [facility] [address] [place] [address] Dr. Kena Peterson Clarity (U) CLEAR Normal CLEAR [facility] Comment on above: Performed By: #### E RUR #### [facility] [address] [place] [address] Dr. Kena Peterson Color (U) LT. YELLOW Normal YELLOW [facility] Comment on above: Performed By: #### E RUR #### [facility] [address] [place] [address] Dr. Kena SILVA A micrscopic examination will be performed if indicated. Normal [facility] Comment on above: Performed By: #### E RUR #### [facility] [address] [place] [address] Dr. Kena Peterson Glucose Ql (U) Negative Normal NEGATIVE [facility] Comment on above: Performed By: #### E RUR #### [facility] [address] [place] [address] Dr. Kena Peterson Hemoglobin Ql (U) Negative Normal NEGATIVE [facility] Comment on above: Performed By: #### E RUR #### [facility] [address] [place] [address] Dr. Kena Peterson Ketones Ql (U) Negative Normal NEGATIVE [facility] Comment on above: Performed By: #### E RUR #### [facility] [address] [place] [address] Dr. Kena Peterson LEUKOCYTES Negative Normal NEGATIVE [facility] Comment on above: Performed By: #### E RUR #### [facility] [address] [place] [address] Dr. Kena Peterson Nitrite Ql (U) Negative Normal NEGATIVE [facility] Comment on above: Performed By: #### E RUR #### [facility] [address] [place] [address] Dr. Kena Peterson pH (U) 7.0 [pH] Normal 5-9 [facility] Comment on above: Performed By: #### E RUR #### [facility] [address] [place] [address] Dr. Kena Peterson SPEC GRAVITY 1.010 Normal 1.005-<=1.025 [facility] Comment on above: Performed By: #### E RUR #### [facility] [address] [place] [address] Dr. Kena Peterson UA PROTEIN Negative Normal NEGATIVE/ TRACE [facility] Comment on above: Performed By: #### E RUR #### [facility] [address] [place] [address] Dr. Kena Peterson UR MICRO IND NOT INDICATED Normal [facility] Comment on above: Performed By: #### E RUR #### [facility] [address] [address] [address] Kena Peterson Urobilinogen Qn (U) 0.2 {Brian'U}/dL Normal 0.2 - 1. 0 [facility] Comment on above: Performed By: #### E RUR #### [facility] [address] [address] [address] Kena Peterson PROF CHEM 8 (BAS METB)on Anion gap [Moles/Vol] 11.4 mmol/L Normal [facility] Comment on above: Performed By: #### B MP #### [facility] [address] [place] [address] Dr. Kena Peterson Calcium [Mass/Vol] 8.8 mg/dL Normal 8.5-10.1 [facility] Comment on above: Performed By: #### B MP #### [facility] [address] [place] [address] Dr. Kena Peterson Chloride [Moles/Vol] 100 mmol/L Normal 98-107 [facility] Comment on above: Performed By: #### B MP #### [facility] [address] [address] [address] Kena Peterson CO2 [Moles/Vol] 31.9 mmol/L Critically high 22.0-30.0 [facility] Comment on above: Performed By: #### B MP #### [facility] [address] [place] [address] Dr. Kena Peterson Creatinine [Mass/Vol] 0.96 mg/dL Normal 0.66-1.25 [facility] Comment on above: Performed By: #### B MP #### [facility] [address] [place] [address] Dr. Kena Peterson EGFR-AF YEMENI >60 Normal >=60 [facility] Comment on above: Performed By: #### B MP #### [facility] [address] [place] [address] Dr. Kena Peterson EGFR-NON AF YEMENI >60 Normal >=60 [facility] Comment on above: Performed By: #### B MP #### [facility] [address] [address] [address] Kena Peterson Glucose [Mass/Vol] 101 mg/dL Normal 74-106 [facility] Comment on above: Performed By: #### B MP #### [facility] [address] [address] [address] Kena Peterson Potassium [Moles/Vol] 4.3 mmol/L Normal 3.4-5.0 [facility] Comment on above: Performed By: #### B MP #### [facility] [address] [address] [address] Kena Peterson Sodium [Moles/Vol] 139 mmol/L Normal 137-145 [facility] Comment on above: Performed By: #### B MP #### [facility] [address] [address] [address] Kena Peterson Urea nitrogen [Mass/Vol] 8.0 mg/dL Normal 7.0-18.0 [facility] Comment on above: Performed By: #### B MP #### [facility] [address] [address] [address] Kena Peterson Urea nitrogen/Creatinine [Mass ratio] 8.3 mg/mg Normal [facility] Comment on above: Performed By: #### B MP #### [facility] [address] [address] [address] Kena Peterson CBC AUTO DIFFon 01-12-2021 BASO # 0.0 103/ul Normal 0.0-0.1 [facility] Comment on above: Performed By: #### C BC #### [facility] [address] [address] [address] Kena Peterson Basophils/100 WBC (Bld) 0.4 % Normal 0.2-2.0 [facility] Comment on above: Performed By: #### C BC #### [facility] [address] [address] [address] Kena Peterson EO # 0.1 103/ul Normal 0.0-0.7 [facility] Comment on above: Performed By: #### C BC #### [facility] [address] [place] [address] Dr. Kena Peterson Eosinophils/100 WBC (Bld) 1.3 % Normal 0.9-7.0 [facility] Comment on above: Performed By: #### C BC #### [facility] [address] [place] [address] Dr. Kena Peterson Erythrocyte distribution width (RBC) [Ratio] 13.4 % Normal 11.0-15.0 [facility] Comment on above: Performed By: #### C BC #### [facility] [address] [place] [address] Dr. Kena Peterson Hematocrit (Bld) [Volume fraction] 41.1 % Critically low 42.0-54.0 [facility] Comment on above: Performed By: #### C BC #### [facility] [address] [place] [address] Dr. Kena Peterson Hemoglobin (Bld) [Mass/Vol] 13.5 g/dL Critically low 14.0-18.0 [facility] Comment on above: Performed By: #### C BC #### [facility] [address] [place] [address] Dr. Kena Peterson IG # 0.03 10e3/ul Normal 0.00-0.03 [facility] Comment on above: Performed By: #### C BC #### [facility] [address] [place] [address] Dr. Kena Peterson IG % 0.3 % Normal 0.0-0.5 [facility] Comment on above: Performed By: #### C BC #### [facility] [address] [place] [address] Dr. Kena Peterson LYMPH # 2.7 103/ul Normal 1.2-3.8 [facility] Comment on above: Performed By: #### C BC #### [facility] [address] [place] [address] Dr. Kena Peterson Lymphocytes/100 WBC (Bld) 29.4 % Normal 20.5-60.0 [facility] Comment on above: Performed By: #### C BC #### [facility] [address] [place] [address] Dr. Kena Peterson MANUAL DIFF REQ NO Normal [facility] Comment on above: Performed By: #### C BC #### [facility] [address] [place] [address] Dr. Kena Peterson MCH (RBC) [Entitic mass] 28.9 pg Normal 25.9-34.0 [facility] Comment on above: Performed By: #### C BC #### [facility] [address] [place] [address] Dr. Kena Peterson MCHC (RBC) [Mass/Vol] 32.8 g/dL Normal 29.9-35.2 [facility] Comment on above: Performed By: #### C BC #### [facility] [address] [place] [address] Dr. Kena Peterson MCV (RBC) [Entitic vol] 88.0 fL Normal 80.0-94.0 [facility] Comment on above: Performed By: #### C BC #### [facility] [address] [place] [address] Dr. Kena Peterson MONO # 0.6 103/ul Normal 0.3-0.8 [facility] Comment on above: Performed By: #### C BC #### [facility] [address] [place] [address] Dr. Kena Peterson Monocytes/100 WBC (Bld) 6.9 % Normal 1.7-12.0 [facility] Comment on above: Performed By: #### C BC #### [facility] [address] [place] [address] Dr. Kena Peterson NEUT # 5.7 103/ul Normal 1.4-6.5 [facility] Comment on above: Performed By: #### C BC #### [facility] [address] [place] [address] Dr. Kena Peterson Neutrophils/100 WBC (Bld) 61.7 % Normal 43.0-75.0 [facility] Comment on above: Performed By: #### C BC #### [facility] [address] [place] [address] Dr. Kena Peterson Platelet mean volume (Bld) [Entitic vol] 10.5 fL Normal 9.5-13.5 [facility] Comment on above: Performed By: #### C BC #### [facility] [address] [place] [address] Dr. Kena Peterson PLT 268 103/ul Normal 150-450 [facility] Comment on above: Performed By: #### C BC #### [facility] [address] [place] [address] Dr. Kena Peterson RBC 4.67 106/ul Critically low 4.70-6.10 [facility] Comment on above: Performed By: #### C BC #### [facility] [address] [place] [address] Dr. Kena Peterson WBC 9.2 103/ul Normal 4.0-11.0 [facility] Comment on above: Performed By: #### C BC #### [facility] [address] [place] [address] Dr. Kena Peterson PROF 14(COMP METB)on 021 Albumin [Mass/Vol] 3.9 g/dL Normal 3.5-5.0 [facility] Comment on above: Performed By: #### C MP #### [facility] [address] [place] [address] Dr. Kena Peterson Albumin/Globulin [Mass ratio] 1.0 {ratio} Normal [facility] Comment on above: Performed By: #### C MP #### [facility] [address] [place] [address] Dr. Kena Peterson ALP [Catalytic activity/Vol] 89 U/L Normal 38-126 [facility] Comment on above: Performed By: #### C MP #### [facility] [address] [place] [address] Dr. Kena Peterson ALT [Catalytic activity/Vol] 32 U/L Normal 21-72 [facility] Comment on above: Performed By: #### C MP #### [facility] [address] [address] [address] Kena Peterson Anion gap [Moles/Vol] 13.8 mmol/L Normal [facility] Comment on above: Performed By: #### C MP #### [facility] [address] [place] [address] Dr. Kena Peterson AST [Catalytic activity/Vol] 12 U/L Critically low 17-59 [facility] Comment on above: Performed By: #### C MP #### [facility] [address] [address] [address] Kena Peterson Bilirubin [Mass/Vol] 0.1 mg/dL Critically low 0.2-1.3 [facility] Comment on above: Performed By: #### C MP #### [facility] [address] [place] [address] Dr. Kena Peterson Calcium [Mass/Vol] 9.5 mg/dL Normal 8.4-10.2 [facility] Comment on above: Performed By: #### C MP #### [facility] [address] [place] [address] Dr. Kena Peterson Chloride [Moles/Vol] 107 mmol/L Normal 98-107 [facility] Comment on above: Performed By: #### C MP #### [facility] [address] [place] [address] Dr. Kena Peterson CO2 [Moles/Vol] 30.0 mmol/L Normal 22.0-30.0 [facility] Comment on above: Performed By: #### C MP #### [facility] [address] [place] [address] Dr. Kena Peterson Creatinine [Mass/Vol] 0.74 mg/dL Normal 0.66-1.25 [facility] Comment on above: Performed By: #### C MP #### [facility] [address] [place] [address] Dr. Kena Peterson EGFR-AF YEMENI >60 Normal >=60 [facility] Comment on above: Performed By: #### C MP #### [facility] [address] [place] [address] Dr. Kena Peterson EGFR-NON AF YEMENI >60 Normal >=60 [facility] Comment on above: Performed By: #### C MP #### [facility] [address] [place] [address] Dr. Kena Peterson Globulin (S) [Mass/Vol] 3.9 g/dL Normal [facility] Comment on above: Performed By: #### C MP #### [facility] [address] [address] [address] Kena Peterson Glucose [Mass/Vol] 144 mg/dL Critically high 74-106 [facility] Comment on above: Performed By: #### C MP #### [facility] [address] [address] [address] Kena Peterson Potassium [Moles/Vol] 3.8 mmol/L Normal 3.4-5.0 [facility] Comment on above: Performed By: #### C MP #### [facility] [address] [place] [address] Dr. Kena Peterson Protein [Mass/Vol] 7.8 g/dL Normal 6.1-8.2 [facility] Comment on above: Performed By: #### C MP #### [facility] [address] [place] [address] Dr. Kena Peterson Sodium [Moles/Vol] 147 mmol/L Critically high 137-145 [facility] Comment on above: Performed By: #### C MP #### [facility] [address] [address] [address] Kena Peterson Urea nitrogen [Mass/Vol] 9.0 mg/dL Normal 9.0-20.0 [facility] Comment on above: Performed By: #### C MP #### [facility] [address] [address] [address] Kena Peterson Urea nitrogen/Creatinine [Mass ratio] 12.2 mg/mg Normal [facility] Comment on above: Performed By: #### C MP #### [facility] [address] [place] [address] LSPINE WO CONon [...] by: GLO ANGELA Date: 2021-01-05 00:59 Normal [facility] ARTERIAL BLOOD GAS W/COOXon 05-30-2018 BASE EXCESS 1 mmol/L Normal -2-3 [facility] Comment on above: Performed By: #### 4 0055 #### [facility] [address] [facility]. [address] COHB 1.9 % High 0.0-1.5 [facility] Comment on above: Performed By: #### 4 0055 #### [facility] [address] [facility] [place] [address], [facility] VENTILATOR Normal [facility] Comment on above: Performed By: #### 4 0055 #### [facility] [address] [facility] [place], [place] [address] FIO2 100 % Normal [facility] Comment on above: Performed By: #### 4 0055 #### [facility] [address] [place] [address], [facility] HCO3 (Bld) [Moles/Vol] 27 mmol/L Normal 21-28 [facility] Comment on above: Performed By: #### 4 0055 #### [facility] [address] [place] [address], [facility] METHB 0.9 % Normal 0.0-1.5 The [facility] Comment on above: Performed By: #### 4 0055 #### [facility] [address] [place] [address], [facility] MIN VOLUME 7.5 Normal [facility] Comment on above: Performed By: #### 4 0055 #### [facility] [address] [place] [address], [facility] MODALITY AC-ASSIST CONTROL Normal The [facility] Comment on above: Performed By: #### 4 0055 #### [facility] [address] [place] [address], [facility] Oxygen (Bld) [Partial pressure] 75 mm[Hg] Low 83-108 The [facility] Comment on above: Performed By: #### 4 0055 #### [facility] [address] [place] [address], [facility] Oxygen saturation in Blood 93.1 % Low 94.0-97.0 The [facility] Comment on above: Performed By: #### 4 0055 #### [facility] [address] [place] [address], [facility] PCO2 47 mmHg High 35-45 The [facility] Comment on above: Performed By: #### 4 0055 #### [facility] [address] [place] [address], [facility] PEEP 8.0 CMH20 Normal The [facility] Comment on above: Performed By: #### 4 0055 #### [facility] [address] [place] [address], [place] pH (Bld) 7.36 [pH] Normal 7.35-7.45 The [facility] Comment on above: Result Comment: BRADFORD LIND NOTE: Effective 04/09/18, reference ranges for Respiratory GEM analyzers running arterial blood have been updated to reflect the gang plank workman's published reference ranges. Performed By: #### 4 0055 #### [facility] [address] [place] [address], [place] THB 13.4 g/dL Normal 12.0-16.3 The [facility] Comment on above: Performed By: #### 4 0055 #### [facility] [address] [place] [address], [place] TIDAL VOLUME (VT) CC 500 cc Normal The [facility] Comment on above: Performed By: #### 4 0055 #### [facility] [address] [place] [address], [facility] BASIC METABOLIC PANELon 04-2 Calcium [Mass/Vol] 9.2 mg/dL Normal 8.6-10.3 [facility] Comment on above: Order Comment: No: D o not add to previous draw Performed By: #### 4 999, 19242, 98633 #### [facility] [address] [place] [address], [place] Chloride [Moles/Vol] 109 mmol/L High 98-107 The [facility] Comment on above: Order Comment: No: D o not add to previous draw Performed By: #### 4 999, 55934, 55738 #### [facility] [address] [place] [address], [place] CO2 [Moles/Vol] 25 mmol/L Normal 21-31 The [facility] Comment on above: Order Comment: No: D o not add to previous draw Performed By: #### 4 999, 76614, 73298 #### [facility] [address] [place] [address], [place] Creatinine [Mass/Vol] 0.78 mg/dL Normal 0.70-1.30 The [facility] Comment on above: Order Comment: No: D o not add to previous draw Performed By: #### 4 999, 26023, 11773 #### [facility] [address] [place] [address], [place] GFR/1.73 sq M predicted among blacks MDRD (S/P/Bld) [Vol rate/Area] mL/min/{1.73_m2} Normal >60 The [facility] Comment on above: Order Comment: No: D o not add to previous draw Performed By: #### 4 999, 86058, 01900 #### [facility] [address] [place] [address], [place] GFR/1.73 sq M predicted among non-blacks MDRD (S/P/Bld) [Vol rate/Area] mL/min/{1.73_m2} Normal >60 The [facility] Comment on above: Order Comment: No: D o not add to previous draw Performed By: #### 4 999, 57775, 38351 #### [facility] [address] [place] [address], [place] Glucose [Mass/Vol] 102 mg/dL High 70-100 The [facility] Comment on above: Order Comment: No: D o not add to previous draw Performed By: #### 4 999, 93147, 18414 #### [facility] [address] [place] [address], [place] Potassium [Moles/Vol] 4.3 mmol/L Normal 3.5-5.1 The [facility] Comment on above: Order Comment: No: D o not add to previous draw Performed By: #### 4 999, 69040, 56122 #### [facility] [address] [place] [address], [place] Sodium [Moles/Vol] 143 mmol/L Normal 136-145 [facility] Comment on above: Order Comment: No: D o not add to previous draw Performed By: #### 4 1000, 49568, 80809 #### [facility] [address] Urea nitrogen [Mass/Vol] 6 mg/dL Low 7-25 The [facility] Comment on above: Order Comment: No: D o not add to previous draw Performed By: #### 4 1000, 63268, 06565 #### [facility] [address] CBC W/DIFFon 05-30-2018 ABS BASOPHILS 0.0 10*3/uL Normal 0.0-0.2 The [facility] Comment on above: Performed By: #### 5 0103 #### [facility] [address] [facility]. [address] ABS IMM GRANS 0.1 10*3/uL Normal 0.0-0.2 The [facility] Comment on above: Performed By: #### 5 0103 #### [facility] [address] ABS NEUTROPHILS 8.7 10*3/uL High 1.6-7.6 The [facility] Comment on above: Performed By: #### 5 0103 #### [facility] [address] Basophils/100 WBC (Bld) 0.4 % Normal 0.0-1.0 The [facility] Comment on above: Performed By: #### 5 0103 #### [facility] [address] [place] [address], [facility] Eosinophils (Bld) [#/Vol] 0.1 10*3/uL Normal 0.0-0.5 The [facility] Comment on above: Performed By: #### 5 0103 #### [facility] [address] [facility] [place] [address], [facility] Eosinophils/100 WBC (Bld) 0.5 % Normal 0.0-6.0 The [facility] Comment on above: Performed By: #### 5 3 #### [facility] [address] [place] [address], [facility] Erythrocyte distribution width (RBC) [Ratio] 12.8 % Normal 11.5-15.0 The [facility] Comment on above: Performed By: #### 3 #### [facility] [address] [place] [address], [facility] Hematocrit (Bld) [Volume fraction] 39.5 % Normal 39.0-50.0 The [facility] Comment on above: Performed By: #### 102 #### [facility] [address] [facility] [place] [address], [facility] Hemoglobin (Bld) [Mass/Vol] 13.1 g/dL Normal 13.0-17.0 The [facility] Comment on above: Performed By: #### 5 3 #### [facility] [address] [place] [address], [facility] IMMATURE GRANS 0.7 % Normal 0.0-1.0 The [facility] Comment on above: Performed By: #### 5 3 #### [facility] [address] [facility] [place] [address], [facility] Lymphocytes (Bld) [#/Vol] 1.6 10*3/uL Normal 1.2-4.0 The [facility] Comment on above: Performed By: #### 5 3 #### [facility] [address] [place] [address], [facility] Lymphocytes/100 WBC (Bld) 14.6 % Low 20.0-45.0 The [facility] Comment on above: Performed By: #### 5 0103 #### [facility] [address] MCH (RBC) [Entitic mass] 29.2 pg Normal 27.0-33.0 The [facility] Comment on above: Performed By: #### 5 3 #### [facility] [address] [place] [address], [facility] MCHC (RBC) [Mass/Vol] 33.2 g/dL Normal 32.0-35.0 The [facility] Comment on above: Performed By: #### 0103 #### [facility] [address] MCV (RBC) [Entitic vol] 88.2 fL Normal 82.0-98.0 The [facility] Comment on above: Performed By: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
[2023-06-24 01:32] VITALS: PULSE 126
--- NOTE | 2023-06-24 01:32 | CT_ITS ---
The [address] [address] Patient Name: BHUPINDER ZIMMER MRN: [id number] date: 1965 Sex: M Assigned Patient Location: ER Current Patient Location: ER Accession/Order Number: [id number] Exam Date: 06/24/2023 01:52 Report Date: 06/24/2023 03:19 At the request of: YOKO BURRIS Procedure: CT head/brain wo con EXAMINATION: CT head/brain wo con, , 06/24/2023 1:52 AM EDT INDICATION: Altered mental status HISTORY: Ordering Provider Reason for Exam: Altered mental status Technologist Note: Additional: COMPARISON: CT HEAD WO CON Study Date: 05/30/2018 TECHNIQUE: CT scan of the head was performed without IV contrast. CT dose reduction technique was used, including Automated Exposure Control. FINDINGS: Ventricles and sulci are normal in size and configuration. No extra-axial collection. No intracranial hemorrhage. No mass effect or edema. No CT evidence of large territorial infarction. Mucosal thickening of bilateral ethmoid air cells is seen. Mastoids are clear. Calvarium is unremarkable. CT/CT head/brain wo con IMPRESSION: No intracranial hemorrhage or mass effect. Electronically authenticated by: MAYRA COLINDRES Date: 06/24/2023 03:19
[2023-06-24 01:51] LABS: Basophils Percent Auto 0.3 % (0.2-2.0); Eosinophils Absolute Auto 0.3 10^3/uL (0.0-0.7); Eosinophils Percent Auto 2.4 % (0.9-7.0); Hemoglobin 11.5 g/dL (14.0-18.0); Immature Granulocytes Abs Auto 0.04 10^3/uL (0.00-0.03); Immature Granulocytes Pct Auto 0.4 % (0.0-0.5); Lymphocytes Absolute Auto 2.4 10^3/uL (1.2-3.8); Lymphocytes Percent Auto 22.5 % (20.5-60.0); Mean Corpuscular HGB Conc 31.9 g/dL (29.9-35.2); Mean Corpuscular Hemoglobin 28.6 pg (25.9-34.0); Mean Corpuscular Volume 89.6 fL (80.0-94.0); Mean Platelet Volume 10.1 fL (9.5-13.5); Monocytes Absolute Auto 0.8 10^3/uL (0.3-0.8); Monocytes Percent Auto 7.3 % (1.7-12.0); Neutrophils Absolute Auto 7.2 10^3/uL (1.4-6.5); Neutrophils Percent Auto 67.1 % (43.0-75.0); Platelet Count 195 10^3/uL (150-450); Red Blood Count 4.02 10^6/uL (4.70-6.10); Red Cell Distribution Width 13.5 % (11.0-15.0); White Blood Count 10.7 10^3/uL (4.0-11.0)
[2023-06-24 02:00] LABS: Calcium 8.5 mg/dL (8.5-10.1); Carbon Dioxide 31.9 mmol/L (21.0-32.0); Chloride 104 mmol/L (98-107); Estimated GFR (African America >60 (>=60); Estimated GFR (Non-African Ame >60 (>=60); Glucose 166 mg/dL (74-106); Potassium 3.9 mmol/L (3.5-5.1); Sodium 139 mmol/L (136-145)
[2023-06-24 02:01] LABS: BUN Creatinine Ratio 6.3; Ethanol <3 mg/dL
[2023-06-24 02:46] VITALS: BP 122/82; PULSE 111; O2SAT 95
[2023-06-24 03:02] VITALS: BP 132/86; PULSE 116; O2SAT 96
[2023-06-24 03:26] LABS: Bilirubin Urine NEGATIVE (NEGATIVE); Blood Urine NEGATIVE (NEGATIVE); Clarity Urine CLEAR (CLEAR); Color Urine LT. YELLOW (YELLOW); Glucose Urine UA NEGATIVE (NEGATIVE); Ketones Urine NEGATIVE (NEGATIVE); Leukocyte Esterase Urine NEGATIVE (NEGATIVE); Nitrite Urine NEGATIVE (NEGATIVE); Protein Urine NEGATIVE (NEG/TRACE); Urobilinogen Urine 0.2 EU/dL (0.2-1.0)
--- NOTE | 2023-06-24 03:27 | ED.GENADUL1 ---
HPI HPI - General Adult General Chief complaint: Overdose Stated complaint: Overdose Time Seen by Provider: 06/24/23 01:28 Source: patient Mode of arrival: ambulance Limitations: no limitations History of Present Illness HPI narrative: 57-year-old male presented by ambulance for an episode where he was sitting on the edge of his bed scratching his leg when he stiffened up and lowered himself to the floor. He did not fall. Paramedics arrived and they thought he may have had a seizure and they gave him Versed. Shortly afterwards they gave him Narcan. This has not recurred. He has had 2 emergency department visits in the last week. He had similar episode in [place] where he was going to be admitted but did not want to stay and he signed out AGAINST MEDICAL ADVICE. He denies any substance abuse. He has no headache or fever. No chest pain or shortness of breath. Related Data Home Medications ?Medication ?Instructions ?Recorded ?Confirmed cyclobenzaprine 10 mg tablet 10 mg PO Q12H 06/24/23 06/24/23 gabapentin 300 mg capsule 300 mg PO Q8H 06/24/23 06/24/23 omeprazole 20 mg capsule,delayed 20 mg PO DAILY 06/24/23 06/24/23 release pramipexole 0.125 mg tablet 0.125 mg PO DAILY 06/24/23 06/24/23 Previous Rx's ?Medication ?Instructions ?Recorded dicyclomine 20 mg tablet 20 mg PO TID PRN abdominal pain #7 06/18/23 tabs ondansetron 4 mg disintegrating 4 mg PO Q4H PRN nausea and 06/18/23 tablet vomiting 3 days #6 tabs Allergies Allergy/AdvReac Type Severity Reaction Status Date / Time Penicillins Allergy Severe Verified 06/24/23 01:34 Opioid HPI Opioid Management Most Recent Opioid Data: Last Pain Scale 8 06/18/23 07:05 Review of Systems ROS Narrative A ten point review of systems is negative except as noted above. Exam Narrative Exam Narrative: Nurses note and vital signs reviewed and patient is not hypoxic. General: The patient appears well and in no apparent distress. Patient is resting comfortably on cart. Skin: Warm, dry, no pallor noted. There is no rash noted. Head: Normocephalic, atraumatic Eye: Normal conjunctiva, no drainage, EOMI. PERRL Ears, Nose, Mouth, and Throat: oral mucosa is moist. Nares patent. Cardiovascular: Regular Rate and Rhythm Respiratory: Patient is in no distress, no accessory muscle use, lungs are clear to auscultation, no wheezing, rales or rhonchi Back: non-tender, no CVA tenderness bilaterally to percussion. GI: Soft and nontender Musculoskeletal: The patient has no evidence of calf tenderness, no pitting edema, symmetrical pulses noted bilaterally Neurological: Initially he was somewhat confused but had just received Versed. He thought it was 2003 but subsequently was able to name the year correctly. He also knows his name and why he is here and where he is. Psychiatric: Cooperative Constitutional Vital Signs, click to edit/add: Last Vital Signs Temp 98.0 F 06/24/23 01:27 Pulse 116 H 06/24/23 03:02 Resp 12 06/24/23 03:02 BP 132/86 06/24/23 03:02 Pulse Ox 96 06/24/23 03:02 O2 Del Method Room Air 06/24/23 03:02 Course Vital Signs Vital signs: Vital Signs Temperature 98.0 F 06/24/23 01:27 Pulse Rate 130 H 06/24/23 01:27 Respiratory Rate 16 06/24/23 01:27 Blood Pressure 146/99 H 06/24/23 01:27 Pulse Oximetry 98 06/24/23 01:27 Oxygen Delivery Method Room Air 06/24/23 01:27 Temperature 98.0 F 06/24/23 01:27 Pulse Rate 116 H 06/24/23 03:02 Respiratory Rate 12 06/24/23 03:02 Blood Pressure 132/86 06/24/23 03:02 Pulse Oximetry 96 06/24/23 03:02 Oxygen Delivery Method Room Air 06/24/23 03:02 Medical Decision Making MDM Narrative Medical decision making narrative: He has had no further symptoms and a negative workup here with drug screen pending. CT brain was negative. He is being referred to neurology for appropriate follow-up. Differential Diagnosis Differential Diagnosis: Seizure spasm, substance abuse Lab Data Lab results reviewed: Yes I reviewed the patient's lab results Labs: Lab Results 06/24/23 Range/Units 01:44 WBC 10.7 (4.0-11.0) 10^3/uL RBC 4.02 L (4.70-6.10) 10^6/uL Hgb 11.5 L (14.0-18.0) g/dL Hct 36.0 L (42.0-54.0) % MCV 89.6 (80.0-94.0) fL MCH 28.6 (25.9-34.0) pg MCHC 31.9 (29.9-35.2) g/dL RDW 13.5 (11.0-15.0) % Plt Count 195 (150-450) 10^3/uL MPV 10.1 (9.5-13.5) fL Neut % (Auto) 67.1 (43.0-75.0) % Lymph % (Auto) 22.5 (20.5-60.0) % [place] % (Auto) 7.3 (1.7-12.0) % Eos % (Auto) 2.4 (0.9-7.0) % Baso % (Auto) 0.3 (0.2-2.0) % Neut # (Auto) 7.2 H (1.4-6.5) 10^3/uL Lymph # (Auto) 2.4 (1.2-3.8) 10^3/uL [place] # (Auto) 0.8 (0.3-0.8) 10^3/uL Eos # (Auto) 0.3 (0.0-0.7) 10^3/uL Baso # (Auto) 0.0 (0.0-0.1) 10^3/uL Abs Immat Gran (auto) 0.04 H (0.00-0.03) 10^3/uL Imm/Tot Granulo (auto) 0.4 (0.0-0.5) % Sodium 139 (136-145) mmol/L Potassium 3.9 (3.5-5.1) mmol/L Chloride 104 (98-107) mmol/L Carbon Dioxide 31.9 (21.0-32.0) mmol/L Anion Gap 7.0 BUN 5.0 L (7.0-18.0) mg/dL Creatinine 0.80 (0.70-1.30) mg/dL Est GFR ( Amer) >60 (>=60) Est GFR (Non-Af Amer) >60 (>=60) BUN/Creatinine Ratio 6.3 Glucose 166 H (74-106) mg/dL Calcium 8.5 (8.5-10.1) mg/dL Ethanol Quant <3 mg/dL Imaging Data CT scan - head: Radiologist's impression: ITS Impressions Chest X-Ray 06/24/23 01:31 IMPRESSION: No acute cardiopulmonary process. Electronically authenticated by: MAYRA COLINDRES Date: 06/24/2023 03:[address] 06/24/23 01:32 IMPRESSION: No intracranial hemorrhage or mass effect. Electronically authenticated by: MAYRA COLINDRES Date: 06/24/2023 03:19 ECG Data Attestation: I personally reviewed and interpreted this ECG as follows: (EKG on my interpretation shows sinus tachycardia without acute change) Discharge Plan Discharge Stand Alone Forms: Portal Instructions Chief Complaint: Overdose Clinical Impression: Spasm Patient Disposition: Home, Self-Care Time of Disposition Decision: 03:26 Condition: Good Mode of Transportation: Private Vehicle Prescriptions / Home Meds: No Action dicyclomine 20 mg tablet 20 mg PO TID PRN (Reason: abdominal pain) Qty: 7 0RF ondansetron 4 mg tablet,disintegrating 4 mg PO Q4H PRN (Reason: nausea and vomiting) 3 Days Qty: 6 0RF cyclobenzaprine 10 mg tablet 10 mg PO Q12H gabapentin 300 mg capsule 300 mg PO Q8H omeprazole 20 mg capsule,delayed release(DR/EC) 20 mg PO DAILY pramipexole 0.125 mg tablet 0.125 mg PO DAILY Print Language: Italian Instructions: Muscle Spasm (ED), Altered Mental Status (ED) Additional Instructions: Follow-up with advanced neurologyDr. Zamora [phone] Referrals: Physician,Non-Staff, MD [Primary Care Provider] - 1 week
[2023-06-24 03:34] LABS: Bacteria Urine NONE SEEN #/HPF (NONE SEEN); Cast Seen? NONE SEEN #/LPF (NONE SEEN); Crystals Seen? None Seen #/HPF (None Seen); Mucus Urine NONE SEEN (NONE SEEN); RBC Urine 0-2 #/HPF (0-2); Sperm Urine SEEN; Squamous Epithelial Cell Urine NONE SEEN #/LPF (NONE/RARE); Urine Culture Indicated NO; WBC Urine NONE SEEN #/HPF (NONE SEEN)
[2023-06-24 03:35] LABS: Amphetamine Screen Urine NEGATIVE (NEGATIVE); Barbiturates Screen Urine NEGATIVE (NEGATIVE); Benzodiazepines Screen Urine NEGATIVE (NEGATIVE); Buprenorphine Screen Urine NEGATIVE (NEGATIVE); Cannabinoid Screen Urine NEGATIVE (NEGATIVE); Cocaine Screen Urine NEGATIVE (NEGATIVE); Methadone Screen Urine NEGATIVE (NEGATIVE); Methamphetamines Screen Urine NEGATIVE (NEGATIVE); Opiate Screen Urine POSITIVE (NEGATIVE); Oxycodone Screen Urine NEGATIVE (NEGATIVE); Phencyclidine Screen Urine NEGATIVE (NEGATIVE); Tricyclic Antidepressant Urine NEGATIVE (NEGATIVE)
== END 2023-06-24 03:42 | disposition home or self-care (01) ==
PROVIDERS: Emergency Provider Emergency Medicine
DX: R25.2 Cramp and spasm (principal); Z79.899 Other long term (current) drug therapy
CPT/HCPCS: 36415; 70450; 71045; 80048; 80307; 80320; 81001; 85025; 93005; 99285

== ENCOUNTER 2023-12-19 13:30 | Emergency (ER) | payer OTHER, SELFPAY ==
[2023-12-19 13:35] VITALS: BP 146/104; PULSE 93; TEMP 36.4; O2SAT 100; BMI 26.6
--- NOTE | 2023-12-19 13:42 | ECG_ITS ---
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
--- NOTE | 2023-12-19 13:44 | ED_ITS ---
<Statement entered by Terry Daniels MD - 12/20/23 12:09> Chart was sent to my inbox for administrative and group management purposes. I was the attending physicians working during the patients hospital course. The patient was seen and managed independently by the MLP. I did not personally see or evaluate this patient, nor was I involved in the patient medical decision making process or plans of care. Pt was dispositioned by the MLP with complete independence. I was available for consultation should the MLP request during this patients ED stay. This documentation has been reviewed and approved. HPI HPI - General Adult General Chief complaint: Shortness of Breath/Dyspnea Stated complaint: DIFFICULTY BREATHING, BACK PAIN Time Seen by Provider: 12/19/23 13:32 Source: patient Mode of arrival: walk-in History of Present Illness HPI narrative: Patient is a 58-year-old male who presents to the emergency department for right posterior thoracic/flank pain for the last 3 days. He states he initially thought he may have pulled a muscle moving furniture but he does have a history of kidney stones so he wonders if he has a stone currently. He has had multiple surgeries for removal of stones in the past, he states Dr. Rojas is his urologist. He has had no fevers but states he does have runny nose and occasional cough. He denies chest pain. He states when he takes a deep breath he has increased pain in the right thoracic back. No abdominal pain, vomiting or diarrhea. He reports some urinary frequency. No blood in his urine. No medications taken prior to arrival. Related Data Previous Rx's ?Medication ?Instructions ?Recorded ketorolac 10 mg tablet 10 mg PO TID PRN pain #10 tabs 12/19/23 methocarbamol 750 mg tablet 750 mg PO TID PRN pain #20 tabs 12/19/23 methylprednisolone 4 mg tablets in See Rx Instructions .Route 12/19/23 a dose pack (Medrol (Fredrick)) .COMPLEX #21 ea Allergies Allergy/AdvReac Type Severity Reaction Status Date / Time Penicillins Allergy Severe Verified 06/24/23 01:34 Opioid HPI Opioid Management Most Recent Opioid Data: Last Pain Scale 8 06/18/23 07:05 06/18/23 Ur Phencyclidine Scrn Negative (NEGATIVE) 06/24/23 03:15 06/05 10/29 Review of Systems ROS Constitutional Denies: fever or chills Ears, nose, mouth, and throat Reports: nasal congestion; Denies: throat pain Cardiovascular Denies: chest pain Respiratory Reports: shortness of breath and cough Gastrointestinal Denies: abdominal pain, nausea or vomiting Genitourinary Reports: urinary frequency; Denies: painful urination Musculoskeletal Reports: back pain; Denies: neck pain or extremity pain Integumentary/Breast Denies: rash Neurological Denies: numbness in extremities or weakness in extremities Hematologic/Lymphatic Denies: easy bruising or easy bleeding PFSH PFSH Social History Little interest or pleasure in doing things: not at all Feeling down, depressed, or hopeless: not at all Exam Constitutional Vital Signs, click to edit/add: Last Vital Signs Temp 97.5 F L 12/19/23 13:35 Pulse 93 H 12/19/23 13:35 Resp 18 12/19/23 13:35 BP 146/104 H 12/19/23 13:35 Pulse Ox 100 12/19/23 13:35 O2 Del Method Room Air 12/19/23 13:35 Course Vital Signs Vital signs: Vital Signs Temperature 97.5 F L 12/19/23 13:35 Pulse Rate 93 H 12/19/23 13:35 Respiratory Rate 18 12/19/23 13:35 Blood Pressure 146/104 H 12/19/23 13:35 Pulse Oximetry 100 12/19/23 13:35 Oxygen Delivery Method Room Air 12/19/23 13:35 Temperature 97.5 F L 12/19/23 13:35 Pulse Rate 93 H 12/19/23 13:35 Respiratory Rate 18 12/19/23 13:35 Blood Pressure 146/104 H 12/19/23 13:35 Pulse Oximetry 100 12/19/23 13:35 Oxygen Delivery Method Room Air 12/19/23 13:35 Medical Decision Making MDM Narrative Medical decision making narrative: Patient was medicated with IV fluids, Toradol, Norflex. Laboratory studies including D-dimer are within normal limits although lactic acid was mildly elevated. Patient with no leukocytosis or bandemia, stable vital signs. Chest x-ray is clear, CT of the abdomen pelvis with bilateral nephrolithiasis however no ureterolithiasis or hydronephrosis. Suspect pain may be musculoskeletal, patient was given home-going instructions, additional [place] given in the ER and he is discharged home. Follow-up with PCP and return to the ER if symptoms change or worsen SUPERVISED APC VISIT, PHYSICIAN ATTESTATION: Based on the medical record the care appears appropriate. ? Medical Records Medical records reviewed: Yes I reviewed the patient's medical records Lab Data Lab results reviewed: Yes I reviewed the patient's lab results Labs: Lab Results 12/19/23 12/19/23 12/19/23 Range/Units 13:50 13:51 13:53 WBC 5.6 (4.0-11.0) 10^3/uL RBC 4.83 (4.70-6.10) 10^6/uL Hgb 13.9 L (14.0-18.0) g/dL Hct 42.7 (42.0-54.0) % MCV 88.4 (80.0-94.0) fL MCH 28.8 (25.9-34.0) pg MCHC 32.6 (29.9-35.2) g/dL RDW 12.9 (11.0-15.0) % Plt Count 221 (150-450) 10^3/uL MPV 10.6 (9.5-13.5) fL Neut % (Auto) 44.2 (43.0-75.0) % Lymph % (Auto) 37.8 (20.5-60.0) % [place] % (Auto) 11.6 (1.7-12.0) % Eos % (Auto) 5.5 (0.9-7.0) % Baso % (Auto) 0.9 (0.2-2.0) % Neut # (Auto) 2.5 (1.4-6.5) 10^3/uL Lymph # (Auto) 2.1 (1.2-3.8) 10^3/uL [place] # (Auto) 0.7 (0.3-0.8) 10^3/uL Eos # (Auto) 0.3 (0.0-0.7) 10^3/uL Baso # (Auto) 0.1 (0.0-0.1) 10^3/uL Abs Immat Gran (auto) 0.00 (0.00-0.03) 10^3/uL Imm/Tot Granulo (auto) 0.0 (0.0-0.5) % PT 10.5 (9.0-11.6) sec INR 0.99 D-Dimer 0.55 (<=0.59) mg/L FEU Sodium 143 (136-145) mmol/L Potassium 3.9 (3.5-5.1) mmol/L Chloride 105 (98-107) mmol/L Carbon Dioxide 27.5 (21.0-32.0) mmol/L Anion Gap 14.4 BUN 9.0 (7.0-18.0) mg/dL Creatinine 1.10 (0.70-1.30) mg/dL Est GFR ( Amer) >60 (>=60 mL/min/1.73m^2) Est GFR (Non-Af Amer) >60 (>=60 mL/min/1.73m^2) BUN/Creatinine Ratio 8.2 Glucose 98 (74-106) mg/dL Lactate 2.8 H* (0.4-2.0) mmol/L Calcium 9.3 (8.5-10.1) mg/dL Total Bilirubin 0.2 (0.2-1.0) mg/dL AST 22 (15-37) U/L ALT 40 (16-63) U/L Alkaline Phosphatase 133 H (46-116) U/L Troponin I High Sens 4.3 (4.0-76.1) pg/mL NT-Pro-B Natriuret Pep 21.0 (<=900.0) pg/mL Total Protein 7.9 (6.4-8.2) g/dL Albumin 3.6 (3.4-5.0) g/dL Globulin 4.3 g/dL Albumin/Globulin Ratio 0.8 Lipase 38.0 (16.0-77.0) U/L Urine Color Lt. yellow (YELLOW) Urine Clarity Clear (CLEAR) Urine pH 7.5 (5.0-9.0) Ur Specific [place] 1.015 (1.005-1.025) Urine Protein Negative (NEG/TRACE) mg/dL Urine Glucose (UA) Negative (NEGATIVE) mg/dL Urine Ketones Negative (NEGATIVE) mg/dL Urine Occult Blood Negative (NEGATIVE) Urine Nitrite Negative (NEGATIVE) Urine Bilirubin Negative (NEGATIVE) Urine Urobilinogen 0.2 (0.2-1.0) EU/dL Ur Leukocyte Esterase Negative (NEGATIVE) Influenza Type A Ag Negative Influenza Type B Ag Negative SARS-CoV-2 Ag (CV2AG) (NEGATIVE) 12/19/23 Range/Units 13:54 WBC (4.0-11.0) 10^3/uL RBC (4.70-6.10) 10^6/uL Hgb (14.0-18.0) g/dL Hct (42.0-54.0) % MCV (80.0-94.0) fL MCH (25.9-34.0) pg MCHC (29.9-35.2) g/dL RDW (11.0-15.0) % Plt Count (150-450) 10^3/uL MPV (9.5-13.5) fL Neut % (Auto) (43.0-75.0) % Lymph % (Auto) (20.5-60.0) % [place] % (Auto) (1.7-12.0) % Eos % (Auto) (0.9-7.0) % Baso % (Auto) (0.2-2.0) % Neut # (Auto) (1.4-6.5) 10^3/uL Lymph # (Auto) (1.2-3.8) 10^3/uL [place] # (Auto) (0.3-0.8) 10^3/uL Eos # (Auto) (0.0-0.7) 10^3/uL Baso # (Auto) (0.0-0.1) 10^3/uL Abs Immat Gran (auto) (0.00-0.03) 10^3/uL Imm/Tot Granulo (auto) (0.0-0.5) % PT (9.0-11.6) sec INR D-Dimer (<=0.59) mg/L FEU Sodium (136-145) mmol/L Potassium (3.5-5.1) mmol/L Chloride (98-107) mmol/L Carbon Dioxide (21.0-32.0) mmol/L Anion Gap BUN (7.0-18.0) mg/dL Creatinine (0.70-1.30) mg/dL Est GFR ( Amer) (>=60 mL/min/1.73m^2) Est GFR (Non-Af Amer) (>=60 mL/min/1.73m^2) BUN/Creatinine Ratio Glucose (74-106) mg/dL Lactate (0.4-2.0) mmol/L Calcium (8.5-10.1) mg/dL Total Bilirubin (0.2-1.0) mg/dL AST (15-37) U/L ALT (16-63) U/L Alkaline Phosphatase (46-116) U/L Troponin I High Sens (4.0-76.1) pg/mL NT-Pro-B Natriuret Pep (<=900.0) pg/mL Total Protein (6.4-8.2) g/dL Albumin (3.4-5.0) g/dL Globulin g/dL Albumin/Globulin Ratio Lipase (16.0-77.0) U/L Urine Color (YELLOW) Urine Clarity (CLEAR) Urine pH (5.0-9.0) Ur Specific [place] (1.005-1.025) Urine Protein (NEG/TRACE) mg/dL Urine Glucose (UA) (NEGATIVE) mg/dL Urine Ketones (NEGATIVE) mg/dL Urine Occult Blood (NEGATIVE) Urine Nitrite (NEGATIVE) Urine Bilirubin (NEGATIVE) Urine Urobilinogen (0.2-1.0) EU/dL Ur Leukocyte Esterase (NEGATIVE) Influenza Type A Ag Influenza Type B Ag SARS-CoV-2 Ag (CV2AG) Negative (NEGATIVE) Imaging Data Chest x-ray: Attestation: I have reviewed the pertinent imaging results. Radiologist's impression: ITS Impressions Abdomen/Pelvis CT 12/19/23 14:21 IMPRESSION: 1. No acute abnormalities in the abdomen or pelvis. 2. Bilateral nephrolithiasis. Electronically authenticated by: MATEO KENNEY Date: 12/19/2023 15:02 Chest X-Ray 12/19/23 14:21 IMPRESSION: 1. Expiratory chest without acute cardiopulmonary disease. Electronically authenticated by: RENEE GRACIA Date: 12/19/2023 15:01 ECG Data Attestation: I personally reviewed and interpreted this ECG as follows: (Normal sinus rhythm at a rate of 80, no acute ST elevation or ectopy. EKG reviewed by attending physician) Discharge Plan Discharge Chief Complaint: Shortness of Breath/Dyspnea Clinical Impression: Acute right flank pain Patient Disposition: Home, Self-Care Time of Disposition Decision: 15:09 Condition: Good Prescriptions / Home Meds: New ketorolac 10 mg tablet 10 mg PO TID PRN (Reason: pain) Qty: 10 0RF methocarbamol 750 mg tablet 750 mg PO TID PRN (Reason: pain) Qty: 20 0RF methylprednisolone [Medrol (Fredrick)] 4 mg tablets,dose pack See Rx Instructions .ROUTE .COMPLEX Qty: 21 0RF Rx Instructions: Taper as directed Print Language: [place] Instructions: Flank Pain (ED) Referrals: Physician,Non-Staff, MD [Primary Care Provider] - 1 week
--- OUTSIDE RECORDS SUMMARY | 2023-12-19 13:58 | XMS_ITS | CCD ---
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 Role Phone VIPIN TORRES Unavailable Unavailable [...] NO PCP, NO PCP Primary Care Unavailable CODY HAGER Attending Unavailable CODY HAGER Attending Unavailable CODY HAGER Referring Unavailable NO PCP, NO PCP Primary Care Unavailable NO PCP, NO PCP Primary Care Unavailable LUCIANA BLISS Attending Unavailable Allergies Allergy Classification Reported Allergen(s) Allergy Type Date of Onset Reaction(s) Facility (1 source) Penicillin Drug Allergy 05-30-2018 [facility] Repository (4 sources) Penicillins; Translations: [PENICILLINS] Drug allergy (disorder) 10-29-2015 [facility] Repository (2 sources) Ibuprofen; Translations: [IBUPROFEN] Drug Allergy 12-17-2015 [facility] Repository Problems Active Problems Problem Classification Problem Date Documented Date Episodic/Chronic Calculus of urinary tract (4 sources) Calculus of kidney; Translations: [CALCULUS OF KIDNEY] Onset: 05-23-2021 Episodic Other aftercare (1 source) 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; Translations: [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] Onset: 04-29-2021 Episodic Spondylosis; [...] Onset: 06-14-2023 Unclassified (1 source) Spasms Onset: 05-21-2023 Unclassified (1 source) EMS Onset: 05-17-2023 Viral infection (1 source) Viral infection, unspecified; Translations: [VIRAL INFECTION UNSPECIFIED] Onset: 04-29-2021 Episodic Past or Other Problems Problem Classification Problem Date Documented Da te Episodic/Chronic Abdominal pain (4 sources) Unspecified abdominal pain; Translations: [Abdominal pain] Onset: 04-28-2021 Episodic Cardiac dysrhythmias (1 source) Tachycardia, unspecified; Translations: [Tachycardia, unspecified] Onset: 05-21-2023 Episodic Fluid and electrolyte disorders (1 source) Hypokalemia; Translations: [Hypokalemia] Onset: 05-21-2023 Episodic Nausea and vomiting (2 sources) Nausea with vomiting, unspecified; Translations: [Vomiting] Onset: 05-17-2023 Episodic Other connective tissue disease (1 source) Cramp and spasm; Translations: [Cramp and spasm] Onset: 05-22-2023 Episodic Other gastrointestinal disorders (1 source) Diarrhea Onset: 05-17-2023 Episodic Other lower respiratory disease (1 source) Cough Onset: 07-03-2023 Episodic Other screening for suspected conditions (not mental disorders or infectious disease) (1 source) Other specified abnormal findings of blood chemistry; Translations: [Other specified abnormal findings of blood chemistry] Onset: 05-21-2023 Episodic Other upper respiratory infections (1 source) Acute upper respiratory infection, unspecified; Translations: [Acute upper respiratory infection, unspecified] Onset: 07-03-2023 Episodic Spondylosis; intervertebral disc disorders; other back problems (4 sources) Radiculopathy, lumbar region; Translations: [Lumbago with sciatica, right side] Onset: 01-06-2021 Episodic Substance-related disorders (1 source) Opioid use, unspecified with withdrawal; Translations: [Opioid use, unspecified with withdrawal] Onset: 05-17-2023 Episodic Unclassified (1 source) LOW BACK PAIN, UNSPECIFIED; Translations: [LOW BACK PAIN, UNSPECIFIED] Onset: 01-05-2021 Results Test Name Value Interpretation Reference Range Facility CBC AND AUTO DIFFon 11-02-19 ABSOLUTE BASOPHIL 0.1 X10E9/L Normal 0.0-0.2 [facility] Comment on above: Performed By: #### C MP, CBCA, 3040-3 #### [facility] ([id number]) [address] [place] [address] 20608 ABSOLUTE NEUTROPHIL 6.1 X10E9/L Normal 1.5-6.6 [facility] Comment on above: Performed By: #### C WILBER, CBCA, 3039-04 #### [facility] ([id number]) [address] [place] [address] 60221 Basophils/100 WBC (Bld) 0.6 % Normal [facility] Comment on above: Performed By: #### C WILBER, CBCA, 3039-04 #### [facility] ([id number]) [address] [place] [address] 80092 Eosinophils (Bld) [#/Vol] 0.2 10*3/uL Normal 0.0-0.4 [facility] Comment on above: Performed By: #### C WILBER, CBCA, 3039-04 #### [facility] ([id number]) [address] [place] [address] 35459 Eosinophils/100 WBC (Bld) 2.6 % Normal [facility] Comment on above: Performed By: #### C WILBER, CBCA, 3039-04 #### [facility] ([id number]) [address] [place] [address] 10131 Erythrocyte distribution width (RBC) [Ratio] 13.1 % Normal 11.5-15.0 [facility] Comment on above: Performed By: #### C WILBER, CBCA, 3039-04 #### [facility] ([id number]) [address] [place] [address] 96367 Hematocrit (Bld) [Volume fraction] 41.3 % Normal 39-49 [facility] Comment on above: Performed By: #### C WILBER, CBCA, 3039-04 #### [facility] ([id number]) [address] [place] [address] 23448 Hemoglobin (Bld) [Mass/Vol] 14.1 g/dL Normal 13.0-17.0 [facility] Comment on above: Performed By: #### C WILBER, CBCA, 3039-04 #### [facility] ([id number]) [address] [place] [address] 16482 Lymphocytes (Bld) [#/Vol] 2.4 10*3/uL Normal 1.0-3.5 [facility] Comment on above: Performed By: #### C WILBER, CBCA, 3039-04 #### [facility] ([id number]) [address] [place] [address] 60040 Lymphocytes/100 WBC (Bld) 25.1 % Normal [facility] Comment on above: Performed By: #### C WILBER, CBCA, 3039-04 #### [facility] ([id number]) [address] [place] [address] 11354 MCH (RBC) [Entitic mass] 29.7 pg Normal 27-34 [facility] Comment on above: Performed By: #### C WILBER, CBCA, 3039-04 #### [facility] ([id number]) [address] [place] [address] 42227 MCHC (RBC) [Mass/Vol] 34.1 g/dL Normal 32-36 [facility] Comment on above: Performed By: #### C WILBER, CBCA, 3039-04 #### [facility] ([id number]) [address] [place] [address] 82359 MCV (RBC) [Entitic vol] 87 fL Normal 80-100 [facility] Comment on above: Performed By: #### C WILBER, CBCA, 3039-04 #### [facility] ([id number]) [address] [place] [address] 58978 Monocytes (Bld) [#/Vol] 0.7 10*3/uL Normal 0-0.9 [facility] Comment on above: Performed By: #### C MP, CBCA, 3039-04 #### [facility] ([id number]) [address] [place] [address] 86237 Monocytes/100 WBC (Bld) 7.4 % Normal [facility] Comment on above: Performed By: #### C MP, CBCA, 3039-04 #### [facility] ([id number]) [address] [place] [address] 74782 Neutrophils/100 WBC (Bld) 64.3 % Normal [facility] Comment on above: Performed By: #### C MP, CBCA, 3039-04 #### [facility] ([id number]) [address] [place] [address] 27044 Platelet mean volume (Bld) [Entitic vol] 8.8 fL Normal 7-12 [facility] Comment on above: Performed By: #### C MP, CBCA, 3039-04 #### [facility] ([id number]) [address] [place] [address] 24281 Platelets (Bld) [#/Vol] 213 10*3/uL Normal 150-450 [facility] Comment on above: Performed By: #### C MP, CBCA, 3039-04 #### [facility] ([id number]) [address] [place] [address] 52983 RBC COUNT 4.74 X10E12/L Normal 4.10-5.70 [facility] Comment on above: Performed By: #### C MP, CBCA, 3039-04 #### [facility] ([id number]) [address] [place] [address] 05635 WBC (Bld) [#/Vol] 9.5 10*3/uL Normal 4.0-11.0 [facility] Comment on above: Performed By: #### C MP, CBCA, 3040-3 #### [facility] ([id number]) [address] [place] [address] 89048 COMPREHENSIVE METABOLIC PANE [place] 11-02-2023 Albumin [Mass/Vol] 4.5 g/dL Normal 3.2-5.3 [facility] Comment on above: Performed By: #### C WILBER CBCA, 3039-3 #### [facility] ([id number]) [address] [place] [address] 63884 ALP [Catalytic activity/Vol] 120 U/L Normal 39-130 [facility] Comment on above: Performed By: #### C WILBER CBCA, 3039-3 #### [facility] ([id number]) [address] [place] [address] 23356 ALT [Catalytic activity/Vol] 31 U/L Normal 0-40 [facility] Comment on above: Performed By: #### C WILBER CBCA, 3039-3 #### [facility] ([id number]) [address] [place] [address] 04193 Anion gap [Moles/Vol] 11 mmol/L Normal 5-15 [facility] Comment on above: Performed By: #### C WILBER, CBCA, 3039-3 #### [facility] ([id number]) [address] [place] [address] 59883 AST [Catalytic activity/Vol] 25 U/L Normal 0-41 [facility] Comment on above: Performed By: #### C WILBER CBCA, 3039-3 #### [facility] ([id number]) [address] [place] [address] 82537 Bilirubin [Mass/Vol] 0.3 mg/dL Normal 0.3-1.2 [facility] Comment on above: Performed By: #### C WILBER, CBCA, 3039-3 #### [facility] ([id number]) [address] [place] [address] 94907 Calcium [Mass/Vol] 9.2 mg/dL Normal 8.5-10.5 [facility] Comment on above: Performed By: #### C DUDLEY MERINO, 3039-3 #### [facility] ([id number]) [address] [place] [address] 01331 Chloride [Moles/Vol] 101 mmol/L Normal 98-109 [facility] Comment on above: Performed By: #### C DUDLEY MERINO, 3039-04 #### [facility] ([id number]) [address] [place] [address] 96228 CO2 [Moles/Vol] 23 mmol/L Normal 22-32 [facility] Comment on above: Performed By: #### C DUDLEY MERINO, 3 #### [facility] ([id number]) [address] [place] [address] 75093 Creatinine [Mass/Vol] 0.70 mg/dL Normal 0.70-1.20 [facility] Comment on above: Result Comment: METH OD TRACEABLE TO IDMS STANDARD Performed By: #### C DUDLEY MERINO, 3 #### [facility] ([id number]) [address] [place] [address] 56383 eGFR (CKD-EPI) NON-RACE DEPENDENT >90 Normal >59 [facility] Comment on above: Result Comment: Reported eGFR is based on the CKD-EPI 2021 equation that does not use a race coefficient. Performed By: #### C DUDLEY MERINO, 3039-3 #### [facility] ([id number]) [address] [place] [address] 96042 Glucose [Mass/Vol] 115 mg/dL High 65-99 [facility] Comment on above: Performed By: #### C DUDLEY MERINO, 3039-3 #### [facility] ([id number]) [address] [place] [address] 82555 Potassium [Moles/Vol] 3.9 mmol/L Normal 3.5-5.0 [facility] Comment on above: Performed By: #### C DUDLEY MERINO, 3040-3 #### [facility] ([id number]) [address] [place] [address] 29113 Protein [Mass/Vol] 8.0 g/dL Normal 6.0-8.0 [facility] Comment on above: Performed By: #### C DUDLEY MERINO, 3040-3 #### [facility] ([id number]) [address] [place] [address] 76311 Sodium [Moles/Vol] 135 mmol/L Normal 134-146 [facility] Comment on above: Performed By: #### C DUDLEY MERINO, 3040-3 #### [facility] ([id number]) [address] [place] [address] 96489 Urea nitrogen [Mass/Vol] 13 mg/dL Normal 5-23 [facility] Comment on above: Performed By: #### C DUDLEY MERINO, 3040-3 #### [facility] ([id number]) [address] [place] [address] 05327 LIPASEon 11-02-2023 Lipase [Catalytic activity/Vol] 21 U/L Normal 17-40 [facility] Comment on above: Performed By: #### C DUDLEY MERINO, 3040-3 #### [facility] ([id number]) [address] [place] [address] 43301 XR CHEST 1 VWon 07-04-2023 XR CHEST 1 VW XR CHEST 1 VW Single view chest History:Cough Difficulty breathing, shortness of breath Comparison: None Findings: Single portable view of the chest. No focal opacity, effusion or pneumothorax. Cardiomediastinal silhouette is within normal limits. Impression: No evidence of acute cardiopulmonary process. Finalized by Vipin Nicole MD on 07/04/2023 12:02 AM Normal [facility] CT LUMBAR SPINE WO CONTon CT LUMBAR [...] Mcguire MD on 06/13/2023 3:31 PM Normal [facility] BASIC METABOLIC PANLon 05-21 Anion gap [Moles/Vol] 4 mmol/L Low 5-15 [facility] Comment on above: Performed By: #### C MP, CBCA, 3040-3 #### [facility] ([id number]) [address] [place] [address] 88950 Calcium [Mass/Vol] 8.3 mg/dL Low 8.5-10.5 [facility] Comment on above: Performed By: #### C DUDLEY MERINO, 0-3 #### [facility] ([id number]) [address] [place] [address] 89748 Chloride [Moles/Vol] 109 mmol/L Normal 98-109 [facility] Comment on above: Performed By: #### C DUDLEY MERINO, 3 #### [facility] ([id number]) [address] [place] [address] 53495 CO2 [Moles/Vol] 23 mmol/L Normal 22-32 [facility] Comment on above: Performed By: #### C DUDLEY MERINO, 3 #### [facility] ([id number]) [address] [place] [address] 63031 Creatinine [Mass/Vol] 0.86 mg/dL Normal 0.70-1.20 [facility] Comment on above: Result Comment: METH OD TRACEABLE TO IDMS STANDARD Performed By: #### C DUDLEY MERINO, 3040-3 #### [facility] ([id number]) [address] [place] [address] 10778 eGFR (CKD-EPI) NON-RACE DEPENDENT >90 Normal >59 [facility] Comment on above: Result Comment: Reported eGFR is based on the CKD-EPI 2021 equation that does not use a race coefficient. Performed By: #### C DUDLEY MERINO, 3039-3 #### [facility] ([id number]) [address] [place] [address] 28340 Glucose [Mass/Vol] 82 mg/dL Normal 65-99 [facility] Comment on above: Performed By: #### C DUDLEY MERINO, 3039-3 #### [facility] ([id number]) [address] [place] [address] 65703 Potassium [Moles/Vol] 3.6 mmol/L Normal 3.5-5.0 [facility] Comment on above: Performed By: #### C MP, CBCA, 3040-3 #### [facility] ([id number]) [address] [place] [address] 09616 Sodium [Moles/Vol] 136 mmol/L Normal 134-146 [facility] Comment on above: Performed By: #### C MP, CBCA, 3040-3 #### [facility] ([id number]) [address] [place] [address] 26062 Urea nitrogen [Mass/Vol] 17 mg/dL Normal 5-23 [facility] Comment on above: Performed By: #### C MP, CBCA, 3040-3 #### [facility] ([id number]) [address] [place] [address] 36009 CBC AND AUTO DIFFon 05-22-19 24 ABSOLUTE BASOPHIL 0.1 X10E9/L Normal 0.0-0.2 [facility] Comment on above: Performed By: #### 3 3-1, 2639-3, THYR, 7-6, CMP, 65637- 9, CBCA, 5643-2, 86491-3, 07767-8 #### [facility] ([id number]) [address] [place] [address] 05739 ABSOLUTE NEUTROPHIL 8.6 X10E9/L High 1.5-6.6 [facility] Comment on above: Performed By: #### 3 3-1, 2639-3, THYR, 7-6, CMP, 34407- 9, CBCA, 5643-2, 64710-6, 17384-9 #### [facility] ([id number]) [address] [place] [address] 94597 Basophils/100 WBC (Bld) 0.6 % Normal [facility] Comment on above: Performed By: #### 3 3-1, 2639-3, THYR, 2157-6, CMP, 68587- 9, CBCA, 5643-2, 84438-5, 94452-6 #### [facility] ([id number]) [address] [place] [address] 80954 Eosinophils (Bld) [#/Vol] 0.1 10*3/uL Normal 0.0-0.4 [facility] Comment on above: Performed By: #### 3 3-1, 9-3, THYR, 2157-6, CMP, 49847- 9, CBCA, 5643-2, 35757-0, 60301-5 #### [facility] ([id number]) [address] [place] [address] 21919 Eosinophils/100 WBC (Bld) 0.7 % Normal [facility] Comment on above: Performed By: #### 3 3-1, 9-3, THYR, 2157-6, CMP, 08892- 9, CBCA, 5643-2, 06591-4, 39991-5 #### [facility] ([id number]) [address] [place] [address] 25128 Erythrocyte distribution width (RBC) [Ratio] 13.2 % Normal 11.5-15.0 [facility] Comment on above: Performed By: #### 3 3-1, 9-3, THYR, 2157-6, CMP, 05203- 9, CBCA, 5643-2, 34873-7, 05856-0 #### [facility] ([id number]) [address] [place] [address] 78687 Hematocrit (Bld) [Volume fraction] 38.7 % Low 39-49 [facility] Comment on above: Performed By: #### 3 3-1, 2639-3, THYR, 2157-6, CMP, 01587- 9, CBCA, 5643-2, 95303-3, 30180-0 #### [facility] ([id number]) [address] [place] [address] [place] [address] Hemoglobin (Bld) [Mass/Vol] 13.4 g/dL Normal 13.0-17.0 [facility] Comment on above: Performed By: #### 3 3-1, 9-3, THYR, 2156-6, CMP, 60575- 9, CBCA, 5643-2, 91958-0, 71722-9 #### [facility] ([id number]) [address] [place] [address] 65678 Lymphocytes (Bld) [#/Vol] 2.1 10*3/uL Normal 1.0-3.5 [facility] Comment on above: Performed By: #### 3 2132-1, 2638-3, THYR, 2156-6, CMP, - 9, CBCA, 5643-2, 05620-0, 57566-9 #### [facility] ([id number]) [address] [place] [address] 11559 Lymphocytes/100 WBC (Bld) 18.2 % Normal [facility] Comment on above: Performed By: #### 3 3-1, 9-3, THYR, 7-6, CMP, 58719- 9, CBCA, 5643-2, 34158-9, 11527-4 #### [facility] ([id number]) [address] [place] [address] 17610 MCH (RBC) [Entitic mass] 29.3 pg Normal 27-34 [facility] Comment on above: Performed By: #### 3 3-1, 2639-3, THYR, 2157-6, CMP, 98611- 9, CBCA, 5643-2, 72321-3, 67805-2 #### [facility] ([id number]) [address] [place] [address] 45982 MCHC (RBC) [Mass/Vol] 34.5 g/dL Normal 32-36 [facility] Comment on above: Performed By: #### 3 3-1, 2639-3, THYR, 7-6, CMP, 12920- 9, CBCA, 5643-2, 48949-0, 22224-7 #### [facility] ([id number]) [address] [place] [address] 64789 MCV (RBC) [Entitic vol] 85 fL Normal 80-100 [facility] Comment on above: Performed By: #### 3 3-1, 9-3, THYR, 2156-6, CMP, 75849- 9, CBCA, 5643-2, 22209-9, 55542-3 #### [facility] ([id number]) [address] [place] [address] 45284 Monocytes (Bld) [#/Vol] 0.5 10*3/uL Normal 0-0.9 [facility] Comment on above: Performed By: #### 3 3-1, 9-3, THYR, 2156-6, CMP, 43447- 9, CBCA, 5643-2, 10512-5, 02420-0 #### [facility] ([id number]) [address] [place] [address] 93127 Monocytes/100 WBC (Bld) 4.8 % Normal [facility] Comment on above: Performed By: #### 3 3-1, 2639-3, THYR, 7-6, CMP, 82472- 9, CBCA, 5643-2, 34467-5, 30192-9 #### [facility] ([id number]) [address] [place] [address] 66505 Neutrophils/100 WBC (Bld) 75.7 % Normal [facility] Comment on above: Performed By: #### 3 3-1, 2639-3, THYR, 2157-6, CMP, 04356- 9, CBCA, 5643-2, 17596-7, 22897-9 #### [facility] ([id number]) [address] [place] [address] 70772 Platelet mean volume (Bld) [Entitic vol] 8.3 fL Normal 7-12 [facility] Comment on above: Performed By: #### 3 3-1, 2639-3, THYR, 2157-6, CMP, 67057- 9, CBCA, 5643-2, 75107-3, 53568-6 #### [facility] ([id number]) [address] [place] [address] 42015 Platelets (Bld) [#/Vol] 218 10*3/uL Normal 150-450 [facility] Comment on above: Performed By: #### 3 3-1, 9-3, THYR, 2157-6, CMP, 70819- 9, CBCA, 5643-2, 42448-8, 10590-3 #### [facility] ([id number]) [address] [place] [address] 02950 RBC COUNT 4.56 X10E12/L Normal 4.10-5.70 [facility] Comment on above: Performed By: #### 3 3-1, 9-3, THYR, 2157-6, CMP, 69965- 9, CBCA, 5643-2, 70181-1, 09589-0 #### [facility] ([id number]) [address] [place] [address] 58282 WBC (Bld) [#/Vol] 11.4 10*3/uL High 4.0-11.0 [facility] Comment on above: Performed By: #### 3 3-1, 2639-3, THYR, 2157-6, CMP, 58319- 9, CBCA, 5643-2, 12345-8, 54811-7 #### [facility] ([id number]) [address] [place] [address] 57732 CK [Catalytic activity/Vol]o n 05-22-2023 CPK 392 U/L High 24-195 [facility] Comment on above: Performed By: #### 3 3-1, 2639-3, THYR, 2157-6, CMP, 36470- 9, CBCA, 5643-2, 35602-1, 43520-1 #### [facility] ([id number]) [address] [place] [address] 40790 COMPREHENSIVE METABOLIC PANE [place] 05-22-2023 Albumin [Mass/Vol] 4.2 g/dL Normal 3.2-5.3 [facility] Comment on above: Performed By: #### 3 3-1, 2639-3, THYR, 2157-6, CMP, 19925- 9, CBCA, 5643-2, 03450-9, 30212-2 #### [facility] ([id number]) [address] [place] [address] 16978 ALP [Catalytic activity/Vol] 89 U/L Normal 39-130 [facility] Comment on above: Performed By: #### 3 3-1, 2639-3, THYR, 2157-6, CMP, 54980- 9, CBCA, 5643-2, 03437-5, 04349-0 #### [facility] ([id number]) [address] [place] [address] 53607 ALT [Catalytic activity/Vol] 29 U/L Normal 0-40 [facility] Comment on above: Performed By: #### 3 3-1, 2639-3, THYR, 2157-6, CMP, 97485- 9, CBCA, 5643-2, 05392-8, 06968-0 #### [facility] ([id number]) [address] [place] [address] 85520 Anion gap [Moles/Vol] 8 mmol/L Normal 5-15 [facility] Comment on above: Performed By: #### 3 3-1, 2639-3, THYR, 7-6, CMP, 37342- 9, CBCA, 5643-2, 20602-3, 27006-3 #### [facility] ([id number]) [address] [place] [address] 57133 AST [Catalytic activity/Vol] 25 U/L Normal 0-41 [facility] Comment on above: Performed By: #### 3 3-1, 9-3, THYR, 2156-6, CMP, - 9, CBCA, 5643-2, 44192-2, 46320-3 #### [facility] ([id number]) [address] [place] [address] 92723 Bilirubin [Mass/Vol] 0.5 mg/dL Normal 0.3-1.2 [facility] Comment on above: Performed By: #### 3 3-1, 9-3, THYR, 2156-6, CMP, 87987- 9, CBCA, 5643-2, 69406-1, 65461-6 #### [facility] ([id number]) [address] [place] [address] 43982 Calcium [Mass/Vol] 8.5 mg/dL Normal 8.5-10.5 [facility] Comment on above: Performed By: #### 3 3-1, 2639-3, THYR, 7-6, CMP, 00554- 9, CBCA, 5643-2, 56294-6, 67660-4 #### [facility] ([id number]) [address] [place] [address]63 Chloride [Moles/Vol] 103 mmol/L Normal 98-109 [facility] Comment on above: Performed By: #### 3 3-1, 2639-3, THYR, 2156-6, CMP, 76897- 9, CBCA, 5643-2, 40058-7, 47140-9 #### [facility] ([id number]) [address] [place] [address] 31254 CO2 [Moles/Vol] 23 mmol/L Normal 22-32 [facility] Comment on above: Performed By: #### 3 3-1, 9-3, THYR, 2156-6, CMP, 25923- 9, CBCA, 5643-2, 01218-9, 05213-4 #### [facility] ([id number]) [address] [place] [address]78 Creatinine [Mass/Vol] 1.12 mg/dL Normal 0.70-1.20 [facility] Comment on above: Result Comment: METH OD TRACEABLE TO IDMS STANDARD Performed By: #### 3 3-1, 9-3, THYR, 2156-6, CMP, 25838-5, CBCA, 5643-2, 23110-3, 53895-0 #### [facility] ([id number]) [address] [place] [address]165 GFR/1.73 sq M.predicted among non-blacks MDRD (S/P/Bld) [Vol rate/Area] 77 mL/min/{1.73_m2} Normal >59 [facility] Comment on above: Result Comment: Reported eGFR is based on the CKD-EPI 2020 equation that does not use a race coefficient. Performed By: #### 3 3-1, 2639-3, THYR, 2157-6, CMP, 99452-9, CBCA, 5643-2, 67563-9, 07605-4 #### [facility] ([id number]) [address] [place] [address] 95151 Glucose [Mass/Vol] 271 mg/dL High 65-99 [facility] Comment on above: Performed By: #### 3 3-1, 2639-3, THYR, 2157-6, CMP, 19986- 9, CBCA, 5643-2, 15502-3, 68779-5 #### [facility] ([id number]) [address] [place] [address], [place] [address] Potassium [Moles/Vol] 2.9 mmol/L Low 3.5-5.0 [facility] Comment on above: Performed By: #### 3 3-1, 2639-3, THYR, 7-6, CMP, 93049- 9, CBCA, 5643-2, 27623-3, 78581-8 #### [facility] ([id number]) [address] [place] [address]8523 Protein [Mass/Vol] 7.5 g/dL Normal 6.0-8.0 [facility] Comment on above: Performed By: #### 3 3-1, 2638-3, THYR, 2156-6, CMP, 56903- 9, CBCA, 5643-2, 09365-6, 93037-9 #### [facility] ([id number]) [address] [place] [address], [place] [address] Sodium [Moles/Vol] 134 mmol/L Normal 134-146 [facility] [facility] Comment [facility]: Performed By: #### 3 3-1, 9-3, THYR, 7-6, CMP, 37655- 9, CBCA, 5643-2, 83376-0, 64049-8 #### [facility] ([id number]) [address] [place] [address], [place] [address] Urea nitrogen [Mass/Vol] 22 mg/dL Normal 5-23 [facility] Comment on above: Performed By: #### 3 3-1, 2639-3, THYR, 2157-6, CMP, 59440- 9, CBCA, 5643-2, 39546-0, 30505-2 #### [facility] ([id number]) [address] [place] [address] 19418 DRUG SCREEN, URINEon 024 AMPHETAMINE/[facility]ETHAMP [facility]G [facility] Comment on above: Result Comment: Conf irmation available upon request. AMPH/METH screening cut off = 1000 ng/mL Performed By: #### C WILBER, CBCA, 3040-3 #### [facility] ([id number]) [address] [place] [address] 36785 BARBITURATES Negative Normal NEG [facility] Comment on above: Result Comment: Shruthi iturates screening cut off value = 200 ng/mL Performed By: #### C WILBER, CBCA, 3040-3 #### [facility] ([id number]) [address] [place] [address] 36723 BENZODIAZEPINES Positive Abnormal NEG [facility] Comment on above: Result Comment: Conf irmation available upon request. Benzodiazepines screening cut off value = 200 ng/mL Performed By: #### C WILBER, CBCA, 3040-3 #### [facility] ([id number]) [address] [place] [address] 34542 CANNABINOIDS Positive Abnormal NEG [facility] Comment on above: Result Comment: Conf irmation available upon request. Cannabinoids/THC screening cut off value = 50 ng/mL Performed By: #### C WILBER, CBCA, 0-3 #### [facility] ([id number]) [address] [place] [address] 87164 COCAINE METABOLITE Negative Normal NEG [facility] Comment on above: Result Comment: Coca ine screening cut off value = 300 ng/mL Performed By: #### C WILBER, CBCA, 3040-3 #### [facility] ([id number]) [address] [place] [address] 58130 ECSTASY Negative Normal NEG [facility] Comment on above: Result Comment: Ecst asy screening cut off value = 500 ng/mL This report is intended for use in clinical monitoring or management of patients. Performed By: #### C DUDLEY MERINO, 3040-3 #### [facility] ([id number]) [address] [place] [address] 65216 METHADONE Negative Normal NEG [facility] Comment on above: Result Comment: Meth adone screening cut off value = 300 ng/mL. Performed By: #### C DUDLEY MERINO, 0-3 #### [facility] ([id number]) [address] [place] [address] 77614 OPIATES Positive Abnormal NEG [facility] Comment on above: Result Comment: Conf irmation available upon request. Opiates screening cut off value = 300 ng/mL NOTE: This test is used for the detection of codeine, hydrocodone (>1000 ng/mL), morphine and hydromorphone (>900 ng/mL) in urine. Performed By: #### C DUDLEY MERINO, 0-3 #### [facility] ([id number]) [address] [place] [address] 74539 OXYCODONE Negative Normal NEG [facility] Comment on above: Result Comment: Oxyc odone screening cut off value = 300 ng/mL NOTE: This test is used for the detection of oxycodone and oxymorphone in urine. Performed By: #### C DUDLEY MERINO, 3040-3 #### [facility] ([id number]) [address] [place] [address] 58630 PHENCYCLIDINE Negative Normal NEG [facility] Comment on above: Result Comment: Phen cyclidine screening cut off value = 25 ng/mL Performed By: #### C DUDLEY MERINO, 3040-3 #### [facility] ([id number]) [address] [place] [address] 30849 ETHANOLon 05-22-2023 Ethanol [Mass/Vol] mg/dL Normal 0.00-0.08 [facility] Comment on above: Result Comment: This report is intended for use in clinical monitoring or management of patients. Performed By: #### 3 3-1, 2639-3, THYR, 2156-6, CMP, 24237-5, CBCA, 5643-2, 35358-2, 53114-1 #### [facility] ([id number]) [address] [place] [address] 65431 Snf Documentson 05-22-2023 Snf Documents [id number]# 1.00TIFF Normal [facility] Lactate (P anne-marie) [Moles/Vol]o n 05-22-2023 Lactate [Moles/Vol] 2.1 mmol/L High 0.4-2.0 [facility] Comment on above: Performed By: #### C MP, CBCA, 3040-3 #### [facility] ([id number]) [address] [place] [address] 91132 LACTATE W/REFLEX 5.0 mmol/L Critically high 0.4-2.0 [facility] Comment on above: Performed By: #### 3 3-1, 9-3, THYR, 6, CMP, 36257- 9, CBCA, 5643-2, 13828-1, 86485-5 #### [facility] ([id number]) [address] [place] [address] 89213 MAGNESIUMon 05-22-2023 Magnesium [Mass/Vol] 2.0 mg/dL Normal 1.8-2.6 [facility] Comment on above: Performed By: #### 3 3-1, 2639-3, THYR, 2156-6, CMP, - 9, CBCA, 5643-2, 61028-6, 19402-2 #### [facility] ([id number]) [address] [place] [address] 80898 Myoglobin [Mass/Vol]on 05-21 SERUM MYOGLOBIN 49.9 ng/mL Normal 17.4-105.7 [facility] Comment on above: Performed By: #### C WILBER, CBCA, 3039-3 #### [facility] ([id number]) [address] [place] [address] 92510 Natriuretic peptide B [Mass/ Vol]on 05-22-2023 BRN NATRIURETIC PEP <5 Normal <100.0 [facility] Comment on above: Performed By: #### 3 2133-1, 2639-3, THYR, 2157-6, CMP, 82345- 9, CBCA, 5643-2, 03349-5, 77872-9 #### [facility] ([id number]) [address] [place] [address] 20888 THYROID PROFILEon 05-22-2023 Free T4 [Mass/Vol] 1.17 ng/dL Normal 0.61-1.60 [facility] Comment on above: Performed By: #### C WILBER, CBCA, 3039-04 #### [facility] ([id number]) [address] [place] [address] 63502 TSH 3.43 uIU/mL Normal 0.49-4.67 [facility] Comment on above: Performed By: #### C WILBER, CBCA, 3 #### [facility] ([id number]) [address] [place] [address] 42620 Troponin I.cardiac High sens itivity method [Mass/Vol]on 05-22-2023 1 HOUR TROP I, HIGH SENSITIVITY 2 ng/L Normal <21 [facility] Comment on above: Performed By: #### C WILBER, CBCA, 3039-3 #### [facility] ([id number]) [address] [place] [address] 81052 TROPONIN I, HIGH SENSITIVITY 3 ng/L Normal <21 [facility] Comment on above: Performed By: #### C WILBER, CBCA, 3039-04 #### [facility] ([id number]) [address] [place] [address] [place] [address] URN MACROSCOPIC NURon 2023 BILIRUBIN DEBORAH Negative Normal NEG [facility] Comment on above: Performed By: #### C WILBER, CBCA, 3039-04 #### [facility] ([id number]) [address] [place] [address], [place] [address] BLOOD/HGB DEBORAH Negative Normal NEG [facility] Comment on above: Performed By: #### C WILBER, CBCA, 3039-04 #### [facility] ([id number]) [address] [place] [address] [place] [address] GLUCOSE DEBORAH 500 mg/dL Abnormal NEG [facility] Comment on above: Performed By: #### C WILBER, CBCA, 3039-04 #### [facility] ([id number]) [address] [place] [address] [place] [address] KETONES DEBORAH Negative Normal NEG [facility] Comment on above: Performed By: #### C WILBER, CBCA, 3039-04 #### [facility] ([id number]) [address] [place] [address], [place] [address] LEUKOCYTE ESTERASE DEBORAH Negative Normal NEG [facility] Comment on above: Performed By: #### C WILBER, CBCA, 3039-04 #### [facility] ([id number]) [address] [place] [address] [place] [address] NITRITE DEBORAH Negative Normal NEG [facility] Comment on above: Performed By: #### C WILBER, CBCA, 3039-04 #### [facility] ([id number]) [address] [place] [address] [place] [address] PH DEBORAH 6.0 Normal 5.0-8.5 [facility] Comment on above: Performed By: #### C WILBER, CBCA, 3039-04 #### [facility] ([id number]) [address] [place] [address] 85440 PROTEIN DEBORAH Negative Normal NEG [facility] Comment on above: Performed By: #### C MP, CBCA, 3039- #### [facility] ([id number]) [address] [place] [address] 38209 SPECIFIC GRAVITY DEBORAH 1.015 Normal 1.003-1.035 [facility] Comment on above: Performed By: #### C MP, CBCA, 3039-04 #### [facility] ([id number]) [address] [place] [address] 03834 UROBILINOGEN DEBORAH 0.2 eu/dL Normal <1.1 [facility] Comment on above: Performed By: #### C MP, CBCA, 3 #### [facility] ([id number]) [address] [place] [address] 11720 CBC AND AUTO DIFFon 05-17-19 24 ABSOLUTE BASOPHIL 0.1 X10E9/L Normal 0.0-0.2 [facility] Comment on above: Performed By: #### C MP, CBCA, 3039-04 #### [facility] ([id number]) [address] [place] [address] 13627 ABSOLUTE NEUTROPHIL 3.9 X10E9/L Normal 1.5-6.6 [facility] Comment on above: Performed By: #### C MP, CBCA, 3039-04 #### [facility] ([id number]) [address] [place] [address] 18372 Basophils/100 WBC (Bld) 1.1 % Normal [facility] Comment on above: Performed By: #### C MP, CBCA, 3039-3 #### [facility] ([id number]) [address] [place] [address] 86922 Eosinophils (Bld) [#/Vol] 0.1 10*3/uL Normal 0.0-0.4 [facility] Comment on above: Performed By: #### C WILBER, CBCA, 3039-04 #### [facility] ([id number]) [address] [place] [address] 19522 Eosinophils/100 WBC (Bld) 1.9 % Normal [facility] Comment on above: Performed By: #### C WILBER, CBCA, 3039-04 #### [facility] ([id number]) [address] [place] [address] 88340 Erythrocyte distribution width (RBC) [Ratio] 13.5 % Normal 11.5-15.0 [facility] Comment on above: Performed By: #### C WILBER, CBCA, 3039-04 #### [facility] ([id number]) [address] [place] [address] 33406 Hematocrit (Bld) [Volume fraction] 43.5 % Normal 39-49 [facility] Comment on above: Performed By: #### C WILBER, CBCA, 3039-04 #### [facility] ([id number]) [address] [place] [address] 06317 Hemoglobin (Bld) [Mass/Vol] 14.9 g/dL Normal 13.0-17.0 [facility] Comment on above: Performed By: #### C WILBER, CBCA, 3039-04 #### [facility] ([id number]) [address] [place] [address] 04639 Lymphocytes (Bld) [#/Vol] 1.4 10*3/uL Normal 1.0-3.5 [facility] Comment on above: Performed By: #### C WILBER, CBCA, 3039-04 #### [facility] ([id number]) [address] [place] [address] 34252 Lymphocytes/100 WBC (Bld) 23.2 % Normal [facility] Comment on above: Performed By: #### C WILBER, CBCA, 3039-04 #### [facility] ([id number]) [address] [place] [address] 64212 MCH (RBC) [Entitic mass] 29.3 pg Normal 27-34 [facility] Comment on above: Performed By: #### C MP, CBCA, 3039-04 #### [facility] ([id number]) [address] [place] [address] 71688 MCHC (RBC) [Mass/Vol] 34.2 g/dL Normal 32-36 [facility] Comment on above: Performed By: #### C WILBER, CBCA, 3039-04 #### [facility] ([id number]) [address] [place] [address] 95843 MCV (RBC) [Entitic vol] 86 fL Normal 80-100 [facility] Comment on above: Performed By: #### C WILBER, CBCA, 3039-04 #### [facility] ([id number]) [address] [place] [address] 07550 Monocytes (Bld) [#/Vol] 0.6 10*3/uL Normal 0-0.9 [facility] Comment on above: Performed By: #### C WILBER, CBCA, 3039-04 #### [facility] ([id number]) [address] [place] [address] 36696 Monocytes/100 WBC (Bld) 9.2 % Normal [facility] Comment on above: Performed By: #### C WILBER, CBCA, 3039-04 #### [facility] ([id number]) [address] [place] [address] 91955 Neutrophils/100 WBC (Bld) 64.6 % Normal [facility] Comment on above: Performed By: #### C MP, CBCA, 3039-04 #### [facility] ([id number]) [address] [place] [address] 24166 Platelet mean volume (Bld) [Entitic vol] 8.2 fL Normal 7-12 [facility] Comment on above: Performed By: #### C WILBER, CBCA, 3039-04 #### [facility] ([id number]) [address] [place] [address] 85035 Platelets (Bld) [#/Vol] 271 10*3/uL Normal 150-450 [facility] Comment on above: Performed By: #### C WILBER CBCA, 3039-04 #### [facility] ([id number]) [address] [place] [address] 06031 RBC COUNT 5.07 X10E12/L Normal 4.10-5.70 [facility] Comment on above: Performed By: #### C WILBER, CBCA, 3039-04 #### [facility] ([id number]) [address] [place] [address] 65109 WBC (Bld) [#/Vol] 6.0 10*3/uL Normal 4.0-11.0 [facility] Comment on above: Performed By: #### C WILBER, CBCA, 3039-04 #### [facility] ([id number]) [address] [place] [address] 09690 COMPREHENSIVE METABOLIC PANE [place] 05-17-2023 Albumin [Mass/Vol] 4.8 g/dL Normal 3.2-5.3 [facility] Comment on above: Performed By: #### C WILBER, CBCA, 3039-04 #### [facility] ([id number]) [address] [place] [address] 16996 ALP [Catalytic activity/Vol] 103 U/L Normal 39-130 [facility] Comment on above: Performed By: #### C WILBER, CBCA, 3039-04 #### [facility] ([id number]) [address] [place] [address] 50341 ALT [Catalytic activity/Vol] 35 U/L Normal 0-40 [facility] Comment on above: Performed By: #### C DUDLEY MERINO, 3039-3 #### [facility] ([id number]) [address] [place] [address] 24772 Anion gap [Moles/Vol] 5 mmol/L Normal 5-15 [facility] Comment on above: Performed By: #### C DUDLEY MERINO, 3039-04 #### [facility] ([id number]) [address] [place] [address] 76047 AST [Catalytic activity/Vol] 23 U/L Normal 0-41 [facility] Comment on above: Performed By: #### C DUDLEY MERINO, 3039-04 #### [facility] ([id number]) [address] [place] [address] [place] [address] Bilirubin [Mass/Vol] 0.6 mg/dL Normal 0.3-1.2 [facility] Comment on above: Performed By: #### C DUDLEY MERINO, 3039-04 #### [facility] ([id number]) [address] [place] [address] 57458 Calcium [Mass/Vol] 9.3 mg/dL Normal 8.5-10.5 [facility] Comment on above: Performed By: #### C DUDLEY MERINO, 3039-04 #### [facility] ([id number]) [address] [place] [address] 50290 Chloride [Moles/Vol] 107 mmol/L Normal 98-109 [facility] Comment on above: Performed By: #### C DUDLEY MERINO, 3 #### [facility] ([id number]) [address] [place] [address] 33725 CO2 [Moles/Vol] 25 mmol/L Normal 22-32 [facility] Comment on above: Performed By: #### C DUDLEY MERINO, 0-3 #### [facility] ([id number]) [address] [place] [address] 67007 Creatinine [Mass/Vol] 0.87 mg/dL Normal 0.70-1.20 [facility] Comment on above: Result Comment: METH OD TRACEABLE TO IDMS STANDARD Performed By: #### C DUDLEY MERINO, 3039-04 #### [facility] ([id number]) [address] [place] [address] 76261 eGFR (CKD-EPI) NON-RACE DEPENDENT >90 Normal >59 [facility] Comment on above: Result Comment: Reported eGFR is based on the CKD-EPI 2020 equation that does not use a race coefficient. Performed By: #### C DUDLEY MERINO, 3 #### [facility] ([id number]) [address] [place] [address] 70046 Glucose [Mass/Vol] 102 mg/dL High 65-99 [facility] Comment on above: Performed By: #### C DUDLEY MERINO, 3039-04 #### [facility] ([id number]) [address] [place] [address] 38131 Potassium [Moles/Vol] 3.9 mmol/L Normal 3.5-5.0 [facility] Comment on above: Performed By: #### C DUDLEY MERINO, 3039-04 #### [facility] ([id number]) [address] [place] [address] 61296 Protein [Mass/Vol] 8.6 g/dL High 6.0-8.0 [facility] Comment on above: Performed By: #### C DUDLEY MERINO, 3039- #### [facility] ([id number]) [address] [place] [address] 24646 Sodium [Moles/Vol] 137 mmol/L Normal 134-146 [facility] Comment on above: Performed By: #### C DUDLEY MERINO, 3040-3 #### [facility] ([id number]) [address] [place] [address] Urea nitrogen [Mass/Vol] 16 mg/dL Normal 5-23 [facility] Comment on above: Performed By: #### C WILBER CBCEvangelista, 3040-3 #### [facility] ([id number]) [address] [place] [address] LIPASEon 05-17-2023 Lipase [Catalytic activity/Vol] 47 U/L High 17-40 [facility] Comment on above: Performed By: #### C WILBER, CBCA, 3040-3 #### [facility] ([id number]) [address] [place] [address] ABD/PELVIS WO CONon 05-23 CT ABD/PELVIS [...] IBAN MORTON Date: 2021-05-23 11:44 Normal [facility] LEAD,ADULTon 04-30-2021 Lead, Blood (Adult) 5 ug/dL Critically high 0-4 [facility] Comment on above: Result Comment: Anal ysis by inductively coupled plasma/mass spectrometry (ICP/MS) Environmental Exposure: WHO Recommendation <20 Occupational Exposure: OSHA Lead Std 40 MIGUEL A 30 . Detection Limit = 1 Performed By: #### L EADA #### [facility] [address] [place] [address] Dr. Kena Peterson CBC AUTO DIFFon 04-28-2021 BASO # 0.0 103/ul Normal 0.0-0.1 [facility] Comment on above: Performed By: #### C BC #### [facility] [address] [place] [address] Dr. Kena Peterson Basophils/100 WBC (Bld) 0.5 % Normal 0.2-2.0 [facility] Comment on above: Performed By: #### C BC #### [facility] [address] [place] [address] Dr. Kena Peterson EO # 0.4 103/ul Normal 0.0-0.7 [facility] Comment on above: Performed By: #### C BC #### [facility] [address] [place] [address] Dr. Kena Peterson Eosinophils/100 WBC (Bld) 4.5 % Normal 0.9-7.0 [facility] Comment on above: Performed By: #### C BC #### [facility] [address] [place] [address] Dr. Kena Peterson Erythrocyte distribution width (RBC) [Ratio] 12.2 % Normal 11.0-15.0 [facility] Comment on above: Performed By: #### C BC #### [facility] [address] [place] [address] Dr. Kena Peterson Hematocrit (Bld) [Volume fraction] 40.2 % Critically low 42.0-54.0 [facility] Comment on above: Performed By: #### C BC #### [facility] [address] [place] [address] Dr. Kena Peterson Hemoglobin (Bld) [Mass/Vol] 13.3 g/dL Critically low 14.0-18.0 [facility] Comment on above: Performed By: #### C BC #### [facility] [address] [place] [address] Dr. Kena Peterson IG # 0.02 10e3/ul Normal 0.00-0.03 [facility] Comment on above: Performed By: #### C BC #### [facility] [address] [place] [address] Dr. Kena Peterson IG % 0.2 % Normal 0.0-0.5 [facility] Comment on above: Performed By: #### C BC #### [facility] [address] [place] [address] Dr. Kena Peterson LYMPH # 2.3 103/ul Normal 1.2-3.8 [facility] Comment on above: Performed By: #### C BC #### [facility] [address] [place] [address] Dr. Kena Peterson Lymphocytes/100 WBC (Bld) 26.8 % Normal 20.5-60.0 [facility] Comment on above: Performed By: #### C BC #### [facility] [address] [place] [address] Dr. Kena Peterson MANUAL DIFF REQ NO Normal [facility] Comment on above: Performed By: #### C BC #### [facility] [address] [place] [address] Dr. Kena Peterson MCH (RBC) [Entitic mass] 29.3 pg Normal 25.9-34.0 [facility] Comment on above: Performed By: #### C BC #### [facility] [address] [address] [address] Kena Peterson MCHC (RBC) [Mass/Vol] 33.1 g/dL Normal 29.9-35.2 [facility] Comment on above: Performed By: #### C BC #### [facility] [address] [address] [address] Kena Peterson MCV (RBC) [Entitic vol] 88.5 fL Normal 80.0-94.0 [facility] Comment on above: Performed By: #### C BC #### [facility] [address] [place] [address] Dr. Kena Peterson MONO # 0.7 103/ul Normal 0.3-0.8 [facility] Comment on above: Performed By: #### C BC #### [facility] [address] [place] [address] Dr. Kena Peterson Monocytes/100 WBC (Bld) 7.7 % Normal 1.7-12.0 [facility] Comment on above: Performed By: #### C BC #### [facility] [address] [place] [address] Dr. Kena Peterson NEUT # 5.1 103/ul Normal 1.4-6.5 [facility] Comment on above: Performed By: #### C BC #### [facility] [address] [place] [address] Dr. Kena Peterson Neutrophils/100 WBC (Bld) 60.3 % Normal 43.0-75.0 [facility] Comment on above: Performed By: #### C BC #### [facility] [address] [place] [address] Dr. Kena Peterson Platelet mean volume (Bld) [Entitic vol] 9.9 fL Normal 9.5-13.5 [facility] Comment on above: Performed By: #### C BC #### [facility] [address] [place] [address] Dr. Kena Peterson PLT 215 103/ul Normal 150-450 [facility] Comment on above: Performed By: #### C BC #### [facility] [address] [place] [address] Dr. Kena Peterson RBC 4.54 106/ul Critically low 4.70-6.10 [facility] Comment on above: Performed By: #### C BC #### [facility] [address] [place] [address] Dr. Kena Peterson WBC 8.4 103/ul Normal 4.0-11.0 [facility] Comment on above: Performed By: #### C BC #### [facility] [address] [place] [address] Dr. Kena Peterson ER URINE PROFILEon 2 Bilirubin Ql (U) Negative Normal NEGATIVE [facility] Comment on above: Performed By: #### E RUR #### [facility] [address] [place] [address] Dr. Kena Peterson Clarity (U) CLEAR Normal CLEAR [facility] Comment on above: Performed By: #### E RUR #### [facility] [address] [place] [address] Dr. Kena Peterson Color (U) LT. YELLOW Normal YELLOW [facility] Comment on above: Performed By: #### E RUR #### [facility] [address] [place] [address] Dr. Kena SILVA A micrscopic examination will be performed if indicated. Normal [facility] Comment on above: Performed By: #### E RUR #### [facility] [address] [place] [address] Dr. Kena Peterson Glucose Ql (U) Negative Normal NEGATIVE [facility] Comment on above: Performed By: #### E RUR #### [facility] [address] [place] [address] Dr. Kena Peterson Hemoglobin Ql (U) Negative Normal NEGATIVE [facility] Comment on above: Performed By: #### E RUR #### [facility] [address] [place] [address] Dr. Kena Peterson Ketones Ql (U) Negative Normal NEGATIVE [facility] Comment on above: Performed By: #### E RUR #### [facility] [address] [place] [address] Dr. Kena Peterson LEUKOCYTES Negative Normal NEGATIVE [facility] Comment on above: Performed By: #### E RUR #### [facility] [address] [place] [address] Dr. Kena Peterson Nitrite Ql (U) Negative Normal NEGATIVE [facility] Comment on above: Performed By: #### E RUR #### [facility] [address] [place] [address] Dr. Kena Peterson pH (U) 7.0 [pH] Normal 5-9 [facility] Comment on above: Performed By: #### E RUR #### [facility] [address] [place] [address] Dr. Kena Peterson SPEC GRAVITY 1.010 Normal 1.005-<=1.025 [facility] Comment on above: Performed By: #### E RUR #### [facility] [address] [place] [address] Dr. Kena Peterson UA PROTEIN Negative Normal NEGATIVE/ TRACE [facility] Comment on above: Performed By: #### E RUR #### [facility] [address] [place] [address] Dr. Kena Peterson UR MICRO IND NOT INDICATED Normal [facility] Comment on above: Performed By: #### E RUR #### [facility] [address] [place] [address] Dr. Kena Peterson Urobilinogen Qn (U) 0.2 {Brian'U}/dL Normal 0.2 - 1. 0 [facility] Comment on above: Performed By: #### E RUR #### [facility] [address] [place] [address] Dr. Kena Peterson PROF CHEM 8 (BAS METB)on Anion gap [Moles/Vol] 11.4 mmol/L Normal [facility] Comment on above: Performed By: #### B MP #### [facility] [address] [place] [address] Dr. Kena Peterson Calcium [Mass/Vol] 8.8 mg/dL Normal 8.5-10.1 [facility] Comment on above: Performed By: #### B MP #### [facility] [address] [address] [address] Kena Peterson Chloride [Moles/Vol] 100 mmol/L Normal 98-107 [facility] Comment on above: Performed By: #### B MP #### [facility] [address] [address] [address] Kena Peterson CO2 [Moles/Vol] 31.9 mmol/L Critically high 22.0-30.0 [facility] Comment on above: Performed By: #### B MP #### [facility] [address] [place] [address] Dr. Kena Peterson Creatinine [Mass/Vol] 0.96 mg/dL Normal 0.66-1.25 [facility] Comment on above: Performed By: #### B MP #### [facility] [address] [place] [address] Dr. Kena Peterson EGFR-AF GRENADIAN >60 Normal >=60 The [facility] Comment on above: Performed By: #### B MP #### [facility] [address] [address] [address] Kena Peterson EGFR-NON AF GRENADIAN >60 Normal >=60 [facility] Comment on above: Performed By: #### B MP #### [facility] [address] [address] [address] Kena Peterson Glucose [Mass/Vol] 101 mg/dL Normal 74-106 [facility] Comment on above: Performed By: #### B MP #### [facility] [address] [address] [address] Kena Peterson Potassium [Moles/Vol] 4.3 mmol/L Normal 3.4-5.0 [facility] Comment on above: Performed By: #### B MP #### [facility] [address] [address] [address] Kena Peterosn Sodium [Moles/Vol] 139 mmol/L Normal 137-145 [facility] Comment on above: Performed By: #### B MP #### [facility] [address] [place] [address] Dr. Kena Peterson Urea nitrogen [Mass/Vol] 8.0 mg/dL Normal 7.0-18.0 [facility] Comment on above: Performed By: #### B MP #### [facility] [address] [place] [address] Dr. Kena Peterson Urea nitrogen/Creatinine [Mass ratio] 8.3 mg/mg Normal [facility] Comment on above: Performed By: #### B MP #### [facility] [address] [place] [address] Dr. Kena Peterson CBC AUTO DIFFon 01-12-2021 BASO # 0.0 103/ul Normal 0.0-0.1 [facility] Comment on above: Performed By: #### C BC #### [facility] [address] [place] [address] Dr. Kena Peterson Basophils/100 WBC (Bld) 0.4 % Normal 0.2-2.0 [facility] Comment on above: Performed By: #### C BC #### [facility] [address] [place] [address] Dr. Kena Peterson EO # 0.1 103/ul Normal 0.0-0.7 [facility] Comment on above: Performed By: #### C BC #### [facility] [address] [place] [address] Dr. Kena Peterson Eosinophils/100 WBC (Bld) 1.3 % Normal 0.9-7.0 [facility] Comment on above: Performed By: #### C BC #### [facility] [address] [place] [address] Dr. Kena Peterson Erythrocyte distribution width (RBC) [Ratio] 13.4 % Normal 11.0-15.0 [facility] Comment on above: Performed By: #### C BC #### [facility] [address] [place] [address] Dr. Kena Peterson Hematocrit (Bld) [Volume fraction] 41.1 % Critically low 42.0-54.0 [facility] Comment on above: Performed By: #### C BC #### [facility] [address] [place] [address] Dr. Kena Peterson Hemoglobin (Bld) [Mass/Vol] 13.5 g/dL Critically low 14.0-18.0 [facility] Comment on above: Performed By: #### C BC #### [facility] [address] [place] [address] Dr. Kena Peterson IG # 0.03 10e3/ul Normal 0.00-0.03 [facility] Comment on above: Performed By: #### C BC #### [facility] [address] [place] [address] Dr. Kena Peterson IG % 0.3 % Normal 0.0-0.5 [facility] Comment on above: Performed By: #### C BC #### [facility] [address] [place] [address] Dr. Kena Peterson LYMPH # 2.7 103/ul Normal 1.2-3.8 [facility] Comment on above: Performed By: #### C BC #### [facility] [address] [place] [address] Dr. Kena Peterson Lymphocytes/100 WBC (Bld) 29.4 % Normal 20.5-60.0 [facility] Comment on above: Performed By: #### C BC #### [facility] [address] [place] [address] Dr. Kena Peterson MANUAL DIFF REQ NO Normal [facility] Comment on above: Performed By: #### C BC #### [facility] [address] [place] [address] Dr. Kena Peterson MCH (RBC) [Entitic mass] 28.9 pg Normal 25.9-34.0 [facility] Comment on above: Performed By: #### C BC #### [facility] [address] [place] [address] Dr. Kena Peterson MCHC (RBC) [Mass/Vol] 32.8 g/dL Normal 29.9-35.2 [facility] Comment on above: Performed By: #### C BC #### [facility] [address] [address] [address] Kena Peterson MCV (RBC) [Entitic vol] 88.0 fL Normal 80.0-94.0 [facility] Comment on above: Performed By: #### C BC #### [facility] [address] [address] [address] Kena Peterson MONO # 0.6 103/ul Normal 0.3-0.8 [facility] Comment on above: Performed By: #### C BC #### [facility] [address] [address] [address] Kena Peterson Monocytes/100 WBC (Bld) 6.9 % Normal 1.7-12.0 [facility] Comment on above: Performed By: #### C BC #### [facility] [address] [address] [address] Kena Peterson NEUT # 5.7 103/ul Normal 1.4-6.5 [facility] Comment on above: Performed By: #### C BC #### [facility] [address] [address] [address] Kena Peterson Neutrophils/100 WBC (Bld) 61.7 % Normal 43.0-75.0 [facility] Comment on above: Performed By: #### C BC #### [facility] [address] [address] [address] Kena Peterson Platelet mean volume (Bld) [Entitic vol] 10.5 fL Normal 9.5-13.5 [facility] Comment on above: Performed By: #### C BC #### [facility] [address] [address] [address] Kena Peterson PLT 268 103/ul Normal 150-450 [facility] Comment on above: Performed By: #### C BC #### [facility] [id number] Kena Peterson RBC 4.67 106/ul Critically low 4.70-6.10 The [facility] Comment on above: Performed By: #### C BC #### [facility] [address] [address] [address] Kena Peterson WBC 9.2 103/ul Normal 4.0-11.0 [facility] Comment on above: Performed By: #### C BC #### [facility] [address] [address] [address] Kena Peterson PROF 14(COMP METB)on 021 Albumin [Mass/Vol] 3.9 g/dL Normal 3.5-5.0 [facility] Comment on above: Performed By: #### C MP #### [facility] [address] [place] [address] Dr. Kena Peterson Albumin/Globulin [Mass ratio] 1.0 {ratio} Normal [facility] Comment on above: Performed By: #### C MP #### [facility] [address] [place] [address] Dr. Kena Peterson ALP [Catalytic activity/Vol] 89 U/L Normal 38-126 [facility] Comment on above: Performed By: #### C MP #### [facility] [address] [place] [address] Dr. Kena Peterson ALT [Catalytic activity/Vol] 32 U/L Normal 21-72 [facility] Comment on above: Performed By: #### C MP #### [facility] [address] [place] [address] Dr. Kena Peterson Anion gap [Moles/Vol] 13.8 mmol/L Normal [facility] Comment on above: Performed By: #### C MP #### [facility] [address] [place] [address] Dr. Kena Peterson AST [Catalytic activity/Vol] 12 U/L Critically low 17-59 [facility] Comment on above: Performed By: #### C MP #### [facility] [address] [place] [address] Dr. Kena Peterson Bilirubin [Mass/Vol] 0.1 mg/dL Critically low 0.2-1.3 [facility] Comment on above: Performed By: #### C MP #### [facility] [address] [address] [address] Kena Peterson Calcium [Mass/Vol] 9.5 mg/dL Normal 8.4-10.2 [facility] Comment on above: Performed By: #### C MP #### [facility] [address] [address] [address] Kena Peterson Chloride [Moles/Vol] 107 mmol/L Normal 98-107 [facility] Comment on above: Performed By: #### C MP #### [facility] [address] [place] [address] Dr. Kena Peterson CO2 [Moles/Vol] 30.0 mmol/L Normal 22.0-30.0 [facility] Comment on above: Performed By: #### C MP #### [facility] [address] [place] [address] Dr. Kena Peterson Creatinine [Mass/Vol] 0.74 mg/dL Normal 0.66-1.25 [facility] Comment on above: Performed By: #### C MP #### [facility] [address] [place] [address] Dr. Kena Peterson EGFR-AF GRENADIAN >60 Normal >=60 [facility] Comment on above: Performed By: #### C MP #### [facility] [address] [place] [address] Dr. Kean Peterson EGFR-NON AF GRENADIAN >60 Normal >=60 [facility] Comment on above: Performed By: #### C MP #### [facility] [address] [address] [address] Kena Peterson Globulin (S) [Mass/Vol] 3.9 g/dL Normal [facility] Comment on above: Performed By: #### C MP #### [facility] [address] [place] [address] Dr. Kena Peterson Glucose [Mass/Vol] 144 mg/dL Critically high 74-106 T [facility] Comment on above: Performed By: #### C MP #### [facility] [address] [address] [address] Kena Peterson Potassium [Moles/Vol] 3.8 mmol/L Normal 3.4-5.0 [facility] Comment on above: Performed By: #### C MP #### [facility] [address] [address] [address] Kena Peterson Protein [Mass/Vol] 7.8 g/dL Normal 6.1-8.2 [facility] Comment on above: Performed By: #### C MP #### [facility] [address] [address] [address] Kena Peterson Sodium [Moles/Vol] 147 mmol/L Critically high 137-145 [facility] Comment on above: Performed By: #### C MP #### [facility] [address] [place] [address] Dr. Kena Peterson Urea nitrogen [Mass/Vol] 9.0 mg/dL Normal 9.0-20.0 [facility] Comment on above: Performed By: #### C MP #### [facility] [address] [place] [address] Dr. Kena Peterson Urea nitrogen/Creatinine [Mass ratio] 12.2 mg/mg Normal [facility] Comment on above: Performed By: #### C MP #### [facility] [address] [place] [address] LSPINE WO CONon [...] by: GLO ANGELA Date: 2021-01-05 00:59 Normal [facility] ARTERIAL BLOOD GAS W/COOXon 05-30-2018 BASE EXCESS 1 mmol/L Normal -2-3 [facility] Comment on above: Performed By: #### 4 0055 #### [facility] [address] COHB 1.9 % High 0.0-1.5 [facility] Comment on above: Performed By: #### 4 0055 #### [facility] [address] DELIVERY SYSTEMS VENTILATOR Normal [facility] Comment on above: Performed By: #### 4 0055 #### [facility] [address] FIO2 100 % Normal [facility] Comment on above: Performed By: #### 4 0055 #### [facility] [address] HCO3 (Bld) [Moles/Vol] 27 mmol/L Normal 21-28 The [facility] Comment on above: Performed By: #### 4 0055 #### [facility] [address] [place] [address], [facility] METHB 0.9 % Normal 0.0-1.5 The [facility] Comment on above: Performed By: #### 4 0055 #### [facility] [address] [place] [address], [facility] MIN VOLUME 7.5 Normal [facility] Comment on above: Performed By: #### 4 0055 #### [facility] [address] [place] [address], [facility] MODALITY AC-ASSIST CONTROL Normal [facility] Comment on above: Performed By: #### 4 0055 #### [facility] [address] [place] [address], [facility] Oxygen (Bld) [Partial pressure] 75 mm[Hg] Low 83-108 The [facility] Comment on above: Performed By: #### 4 0055 #### [facility] [address] [place] [address], [facility] Oxygen saturation in Blood 93.1 % Low 94.0-97.0 The [facility] Comment on above: Performed By: #### 4 0055 #### [facility] [address] [place] [address], [facility] PCO2 47 mmHg High 35-45 The [facility] Comment on above: Performed By: #### 4 0055 #### [facility] [address] [place] [address], [facility] PEEP 8.0 CMH20 Normal [facility] Comment on above: Performed By: #### 4 0055 #### [facility] [address] [place] [address], [facility] pH (Bld) 7.36 [pH] Normal 7.35-7.45 The [facility] Comment on above: Result Comment: BRADFROD LIND NOTE: Effective 04/09/18, reference ranges for Respiratory GEM analyzers running arterial blood have been updated to reflect the administrative support associate's published reference ranges. Performed By: #### 4 0055 #### [facility] [address] [place] [address], [facility] THB 13.4 g/dL Normal 12.0-16.3 The [facility] Comment on above: Performed By: #### 4 0055 #### [facility] [address] [place] [address], [facility] TIDAL VOLUME (VT) CC 500 cc Normal [facility] Comment on above: Performed By: #### 4 0055 #### [facility] [address] [place] [address], [place] BASIC METABOLIC PANELon 04-2 Calcium [Mass/Vol] 9.2 mg/dL Normal 8.6-10.3 [facility] Comment on above: Order Comment: No: D o not add to previous draw Performed By: #### 4 1000, 72049, [id number] #### [facility] [address] [place] [address], [place] Chloride [Moles/Vol] 109 mmol/L High 98-107 The [facility] Comment on above: Order Comment: No: D o not add to previous draw Performed By: #### 4 1000, 68347, 62065 #### [facility] [address] [place] [address], [place] CO2 [Moles/Vol] 25 mmol/L Normal 21-[address] [facility] Comment on above: Order Comment: No: D o not add to previous draw Performed By: #### 4 1000, 06752, 69883 #### [facility] [address] [place] [address], [place] Creatinine [Mass/Vol] 0.78 mg/dL Normal 0.70-1.30 The [facility] Comment on above: Order Comment: No: D o not add to previous draw Performed By: #### 4 1000, 24647, 73004 #### [facility] [address] [place] [address], [place] GFR/1.73 sq M predicted among blacks MDRD (S/P/Bld) [Vol rate/Area] mL/min/{1.73_m2} Normal >60 The [facility] Comment on above: Order Comment: No: D o not add to previous draw Performed By: #### 4 999, 24091, 39811 #### [facility] [address] [place] [address], [facility] GFR/1.73 sq M predicted among non-blacks MDRD (S/P/Bld) [Vol rate/Area] mL/min/{1.73_m2} Normal >60 The [facility] Comment on above: Order Comment: No: D o not add to previous draw Performed By: #### 4 999, 06456, 10904 #### [facility] [address] [place] [address], [facility] Glucose [Mass/Vol] 102 mg/dL High 70-100 The [facility] Comment on above: Order Comment: No: D o not add to previous draw Performed By: #### 4 999, 55257, 37915 #### [facility] [address] [place] [address], [facility] Potassium [Moles/Vol] 4.3 mmol/L Normal 3.5-5.1 The [facility] Comment on above: Order Comment: No: D o not add to previous draw Performed By: #### 4 999, 88357, 44414 #### [facility] [address] [place] [address], [facility] Sodium [Moles/Vol] 143 mmol/L Normal 136-145 The [facility] Comment on above: Order Comment: No: D o not add to previous draw Performed By: #### 4 999, 70965, 53594 #### [facility] [address] [place] [address], [facility] Urea nitrogen [Mass/Vol] 6 mg/dL Low 7-25 The [facility] Comment on above: Order Comment: No: D o not add to previous draw Performed By: #### 4 999, 54167, 48959 #### [facility] [address] [place] [address], [place] CBC W/DIFFon 05-30-2018 ABS BASOPHILS 0.0 10*3/uL Normal 0.0-0.2 The [facility] Comment on above: Performed By: #### 5 0103 #### [facility] [address] [place] [address], [facility] ABS IMM GRANS 0.1 10*3/uL Normal 0.0-0.2 The [facility] Comment on above: Performed By: #### 5 0103 #### [facility] [address] [facility] [place] [address], [facility] ABS NEUTROPHILS 8.7 10*3/uL High 1.6-7.6 The [facility] Comment on above: Performed By: #### 5 0103 #### [facility] [address] [place] [address], [facility] Basophils/100 WBC (Bld) 0.4 % Normal 0.0-1.0 The [facility] Comment on above: Performed By: #### 5 0103 #### [facility] [address] [facility] [place] [address], [facility] Eosinophils (Bld) [#/Vol] 0.1 10*3/uL Normal 0.0-0.5 The [facility] Comment on above: Performed By: #### 5 0103 #### [facility] [address] [facility] [place] [address], [facility] Eosinophils/100 WBC (Bld) 0.5 % Normal 0.0-6.0 The [facility] Comment on above: Performed By: #### 5 0103 #### [facility] [address] [place] [address], [facility] Erythrocyte distribution width (RBC) [Ratio] 12.8 % Normal 11.5-15.0 The [facility] Comment on above: Performed By: #### 5 0103 #### [facility] [address] [place] [address], [facility] Hematocrit (Bld) [Volume fraction] 39.5 % Normal 39.0-50.0 The [facility] Comment on above: Performed By: #### 5 0103 #### [facility] [address] [facility] [place] [address], [facility] Hemoglobin (Bld) [Mass/Vol] 13.1 g/dL Normal 13.0-17.0 The [facility] Comment on above: Performed By: #### 5 0103 #### [facility] [address] [facility] [place] [address], [facility] IMMATURE GRANS 0.7 % Normal 0.0-1.0 The [facility] Comment on above: Performed By: #### 5 0103 #### [facility] [address] [facility] [place] [address], [facility] Lymphocytes (Bld) [#/Vol] 1.6 10*3/uL Normal 1.2-4.0 The [facility] Comment on above: Performed By: #### 5 0103 #### [facility] [address] [place] [address], [facility] Lymphocytes/100 WBC (Bld) 14.6 % Low 20.0-45.0 The [facility] Comment on above: Performed By: #### 5 0103 #### [facility] [address] [facility] [place] [address], [facility] MCH (RBC) [Entitic mass] 29.2 pg Normal 27.0-33.0 The [facility] Comment on above: Performed By: #### 5 0103 #### [facility] [address] [facility] [place] [id number], [facility] MCHC (RBC) [Mass/Vol] 33.2 g/dL Normal 32.0-35.0 The [facility] Comment on above: Performed By: #### 5 3 #### [facility] [address] [place] [address], [facility] MCV (RBC) [Entitic vol] 88.2 fL Normal 82.0-98.0 The [facility] Comment on above: Performed By: #### 5 0103 #### [facility] [address] [facility] [place] [address], [facility] Monocytes (Bld) [#/Vol] 0.7 10*3/uL Normal 0.1-1.0 The [facility] Comment on above: Performed By: #### 5 0103 #### [facility] [address] [facility] [place] [address], [facility] MONOS 6.2 % Normal 5.0-12.0 The [facility] Comment on above: Performed By: #### 5 3 #### [facility] [address] [facility] [place] [address], [facility] Neutrophils/100 WBC (Bld) 77.6 % High 40.0-72.0 The [facility] Comment on above: Performed By: #### 5 102 #### [facility] [address] [facility] [place] [address], [facility] Nucleated RBC/100 WBC (Bld) [Ratio] 0 % Normal 0-0 The [facility] Comment on above: Performed By: #### 5 0103 #### [facility] [address] [facility] [place] [address], [facility] PLAT CNT 206 10*3/uL Normal 150-400 [facility] Comment on above: Performed By: #### 5 102 #### [facility] [address] [facility] [place] [address], [facility] RBC (Bld) [#/Vol] 4.48 10*6/uL Normal 4.20-5.70 The [facility] Comment on above: Performed By: #### 5 102 #### [facility] [address] [place] [id number], [facility] WBC (Bld) [#/Vol] 11.25 10*3/uL High 4.00-10.60 The [facility] Comment on above: Performed By: #### 5 0103 #### [address] ABDOMEN AND PELVIS W CONT RASTon 05-30-2018 CT ABDOMEN AND PELVIS W CONTRAST [facility] Department of Radiology [address] [place] [id number] Patient Name: ROMAINE ZIMMER : 1965 Sex: M Age: Race: White Pt. Location: [facility] Patient Status: O Ordered Date: 05/30/2018 [...] L5-S1. Electronically signed by:Nina Meza. Transcribed by: [email or web address], User Resident: Electronically Signed by: NINA MEZA @ 05/30/2018 11:42 AM Normal The [facility] Comment on above: Order Comment: R/O L iver/Spleen Trauma CTA CHESTon 05-30-2018 CTA CHEST [facility] Department of Radiology [address] [place] [id number] Patient Name: ROMAINE ZIMMER : 1965 Sex: M Age: Race: White Pt. Location: [facility] Patient Status: O Ordered Date: 05/30/2018 [...] spondylosis. Electronically signed by:Alejandra Pryor. Transcribed by: [email or web address], User Resident: Electronically Signed by: ALEJANDRA PRYOR @ 05/30/2018 11:39 AM Normal The [facility] Comment on above: Order Comment: Other , trauma MAGNESIUM BLOODon 05-30-2018 Magnesium [Mass/Vol] 1.8 mg/dL Low 1.9-2.7 The [facility] Comment on above: Order Comment: No: D o not add to previous draw Performed By: #### 4 1000, [id number], [id number] #### [facility] [address] PAIN MANAGEMENT DRUG PANEL 2 954371mg 05-30-2018 6-ACETYLMORPHINE Not Detected Normal [facility] Comment on above: Order Comment: Please call [facility] at [phone] for End User Consultant consultation or assistance with interpretation if needed. 7-AMINOCLONAZEPAM Not Detected Normal [facility] Comment on above: Order Comment: Please call [facility] at [phone] for End User Consultant consultation or assistance with interpretation if needed. ALPRAZOLAM Not Detected Normal The [facility] Comment on above: Order Comment: Please call [facility] at [phone] for End User Consultant consultation or assistance with interpretation if needed. AMPHETAMINE Not Detected Normal [facility] Comment on above: Order Comment: Please call [facility] at [phone] for End User Consultant consultation or assistance with interpretation if needed. KQLYP-DJ-NJUKPJKOMD Not Detected Normal The [facility] Comment on above: Order Comment: Please call [facility] at [phone] for End User Consultant consultation or assistance with interpretation if needed. BARITURATES Not Detected Normal [facility] Comment on above: Order Comment: Please call [facility] at [phone] for End User Consultant consultation or assistance with interpretation if needed. Benzoylecgonine Ql (U) Not Detected Normal The [facility] Comment on above: Order Comment: Please call [facility] at [phone] for End User Consultant consultation or assistance with interpretation if needed. BUPRENORPHINE Not Detected Normal [facility] Comment on above: Order Comment: Please call [facility] at [phone] for End User Consultant consultation or assistance with interpretation if needed. CARISOPRODOL Not Detected Normal [facility] Comment on above: Order Comment: Please call [facility] at [phone] for End User Consultant consultation or assistance with interpretation if needed. Result Comment: The carisoprodol immunoassay has cross-reactivity to carisoprodol and meprobamate. CLONAZEPAM Not Detected Normal The [facility] Comment on above: Order Comment: Please call [facility] [employer] at [phone] for End User Consultant consultation or assistance with interpretation if needed. CODEINE URINE Not Detected Normal The [facility] Comment on above: Order Comment: Please call [facility] at [phone] for End User Consultant consultation or assistance with interpretation if needed. CREATININE URINE 37.8 mg/dL Normal 20.0-400.0 The [facility] Comment on above: Order Comment: Please call [facility] [employer] at [phone] for End User Consultant consultation or assistance with interpretation if needed. DIAZEPAM Not Detected Normal The [facility] Comment on above: Order Comment: Please call [facility] [employer] at [phone] for End User Consultant consultation or assistance with interpretation if needed. EER PAIN MGT DRUG PANEL, HIGH RES See Note Normal The [facility] Comment on above: Order Comment: Please call [employer] at [phone] for End User Consultant consultation or assistance with interpretation if needed. Result Comment: Acce ss [facility] Enhanced Report using either link below: -Direct access: [email or web address] -Enter Username, Password: [email or web address] Username: [email or web address] Password: [email or web address] Performed by [facility] [address] [place] [id number] [email or web address], Bowen Mathis MD - Lab. Director ETHYL GLUCURONIDE Not Detected Normal The [facility] Comment on above: Order Comment: Please call [employer] at [phone] for End User Consultant consultation or assistance with interpretation if needed. FENTANYL Present Normal The [facility] Comment on above: Order Comment: Please call [facility] at [phone] for End User Consultant consultation or assistance with interpretation if needed. HYDROCODONE Not Detected Normal The [facility] Comment on above: Order Comment: Please call [facility] at [phone] for End User Consultant consultation or assistance with interpretation if needed. HYDROMORPHONE Not Detected Normal [facility] Comment on above: Order Comment: Please call [facility] at [phone] for End User Consultant consultation or assistance with interpretation if needed. LORAZEPAM Present Normal The [facility] Comment on above: Order Comment: Please call [facility] at [phone] for End User Consultant consultation or assistance with interpretation if needed. MARIJUANA METABOLITE Present Normal The [facility] Comment on above: Order Comment: Please call [facility] at [phone] for End User Consultant consultation or assistance with interpretation if needed. MDA Not Detected Normal The [facility] Comment on above: Order Comment: Please call [facility] at [phone] for End User Consultant consultation or assistance with interpretation if needed. MDEA- POLI Not Detected Normal The [facility] Comment on above: Order Comment: Please call [facility] at [phone] for End User Consultant consultation or assistance with interpretation if needed. MDMA- ECSTASY Not Detected Normal [facility] Comment on above: Order Comment: Please call [facility] at [phone] for End User Consultant consultation or assistance with interpretation if needed. MEPERIDINE Not Detected Normal The [facility] Comment on above: Order Comment: Please call [facility] at [phone] for End User Consultant consultation or assistance with interpretation if needed. Methadone Ql (U) Not Detected Normal The [facility] Comment on above: Order Comment: Please call [facility] at [phone] for End User Consultant consultation or assistance with interpretation if needed. METHAMPHETAMINE Not Detected Normal The [facility] Comment on above: Order Comment: Please call [facility] at [phone] for End User Consultant consultation or assistance with interpretation if needed. METHYLPHENIDATE Not Detected Normal The [facility] Comment on above: Order Comment: Please call [facility] at [phone] for End User Consultant consultation or assistance with interpretation if needed. MIDAZOLAM Not Detected Normal The [facility] Comment on above: Order Comment: Please call [facility] at [phone] for End User Consultant consultation or assistance with interpretation if needed. MORPHINE Present Normal The [facility] Comment on above: Order Comment: Please call [facility] at [phone] for End User Consultant consultation or assistance with interpretation if needed. NORBUPRENORPHINE Not Detected Normal The [facility] Comment on above: Order Comment: Please call [facility] at [phone] for End User Consultant consultation or assistance with interpretation if needed. NORDIAZEPAM Not Detected Normal The [facility] Comment on above: Order Comment: Please call [facility] at [phone] for End User Consultant consultation or assistance with interpretation if needed. NORFENTANYL Present Normal The [facility] Comment on above: Order Comment: Please call [facility] at [phone] for End User Consultant consultation or assistance with interpretation if needed. NORHYDROCODONE Not Detected Normal The [facility] Comment on above: Order Comment: Please call [facility] at [phone] for End User Consultant consultation or assistance with interpretation if needed. NOROXYCODONE Not Detected Normal The [facility] Comment on above: Order Comment: Please call [facility] at [phone] for End User Consultant consultation or assistance with interpretation if needed. NOROXYMORPHONE Not Detected Normal The [facility] Comment on above: Order Comment: Please call [facility] at [phone] for End User Consultant consultation or assistance with interpretation if needed. OXAZEPAM Not Detected Normal The [facility] Comment on above: Order Comment: Please call [facility] at [phone] for End User Consultant consultation or assistance with interpretation if needed. OXYCODONE Not Detected Normal The [facility] Comment on above: Order Comment: Please call [facility] at [phone] for End User Consultant consultation or assistance with interpretation if needed. OXYMORPHONE Not Detected Normal The [facility] Comment on above: Order Comment: Please call [facility] at [phone] for End User Consultant consultation or assistance with interpretation if needed. PAIN MANAGEMENT DRUG PANEL See Below Normal The [facility] Comment on above: Order Comment: Please call [facility] at [phone] for End User Consultant consultation or assistance with interpretation if needed. [...] developed and its performance characteristics determined by [employer] The U.S. Food and Drug Administration has not approved or cleared this test; however, FDA clearance or approval is not currently required for clinical use. The results are not intended to be used as the sole means for clinical diagnosis or patient management decisions. PCP Not Detected Normal The [facility] Comment on above: Order Comment: Please call [facility] [employer] at [phone] for End User Consultant consultation or assistance with interpretation if needed. PHENTERMINE Not Detected Normal The [facility] Comment on above: Order Comment: Please call [facility] [employer] at [phone] for End User Consultant consultation or assistance with interpretation if needed. PROPOXYPHENE Not Detected Normal The [facility] Comment on above: Order Comment: Please call [facility] at [phone] for End User Consultant consultation or assistance with interpretation if needed. TAPENTADOL Not Detected Normal The [facility] Comment on above: Order Comment: Please call [facility] at [phone] for End User Consultant consultation or assistance with interpretation if needed. ASOLJWFEFF-A-VWGV Not Detected Normal [facility] Comment on above: Order Comment: Please call [facility] at [phone] for End User Consultant consultation or assistance with interpretation if needed. TEMAZEPAM Not Detected Normal The [facility] Comment on above: Order Comment: Please call [facility] at [phone] for End User Consultant consultation or assistance with interpretation if needed. TRAMADOL Not Detected Normal The [facility] Comment on above: Order Comment: Please call [facility] at [phone] for End User Consultant consultation or assistance with interpretation if needed. ZOLPIDEM Not Detected Normal The [facility] Comment on above: Order Comment: Please call [facility] at [phone] for End User Consultant consultation or assistance with interpretation if needed. PHOSPHORUS BLOODon 9 Phosphate [Mass/Vol] 3.4 mg/dL Normal 2.5-5.0 The [facility] Comment on above: Order Comment: No: D o not add to previous draw Performed By: #### 4 1000, [id number], [id number] #### [facility] [address] [facility] [place] [address], [facility] Vital Signs Date Time Vital Sign Value Performing Clinician Carlos thomas 05-30-2018 12:10-0400 Respiratory rate 12 /min EBENEZER WILSON The [facility] Comment on above: Performed By: #### 4 0055 #### [facility] [address] [facility] [place] [address], [facility] Encounters Encounter Date Encounter Type Care Provider Facility Start: 11-02-2023 End: 11-02-2023 Emergency department patient visit NO PCP NO PCP [facility] Start: 07-03-2023 End: 07-04-2023 Emergency department patient visit CODY HAGER [facility] Start: 06-14-2023 End: 06-14-2023 Emergency department patient visit NO PCP NO PCP [facility] Start: 06-13-2023 End: 06-14-2023 Emergency department patient visit MATEO BANDA [facility] Start: 05-22-2023 End: 05-23-2023 ambulatory Loco Luke BO Facility:[facility] Start: 05-22-2023 End: 05-22-2023 Patient encounter procedure Loco SORIANO [facility] Start: 05-21-2023 End: 05-22-2023 ambulatory NO PCP NO PCP [facility] Start: 05-17-2023 End: 05-17-2023 Emergency department patient visit NO PCP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
[2023-12-19 14:01] LABS: Basophils Absolute Auto 0.1 10^3/uL (0.0-0.1); Basophils Percent Auto 0.9 % (0.2-2.0); Eosinophils Absolute Auto 0.3 10^3/uL (0.0-0.7); Eosinophils Percent Auto 5.5 % (0.9-7.0); Hematocrit 42.7 % (42.0-54.0); Hemoglobin 13.9 g/dL (14.0-18.0); Lymphocytes Absolute Auto 2.1 10^3/uL (1.2-3.8); Lymphocytes Percent Auto 37.8 % (20.5-60.0); Mean Corpuscular HGB Conc 32.6 g/dL (29.9-35.2); Mean Corpuscular Hemoglobin 28.8 pg (25.9-34.0); Mean Corpuscular Volume 88.4 fL (80.0-94.0); Mean Platelet Volume 10.6 fL (9.5-13.5); Monocytes Absolute Auto 0.7 10^3/uL (0.3-0.8); Monocytes Percent Auto 11.6 % (1.7-12.0); Neutrophils Absolute Auto 2.5 10^3/uL (1.4-6.5); Neutrophils Percent Auto 44.2 % (43.0-75.0); Platelet Count 221 10^3/uL (150-450); Red Blood Count 4.83 10^6/uL (4.70-6.10); Red Cell Distribution Width 12.9 % (11.0-15.0); White Blood Count 5.6 10^3/uL (4.0-11.0)
[2023-12-19 14:03] LABS: Bilirubin Urine NEGATIVE (NEGATIVE); Blood Urine NEGATIVE (NEGATIVE); Clarity Urine CLEAR (CLEAR); Color Urine LT. YELLOW (YELLOW); Glucose Urine UA NEGATIVE (NEGATIVE); Ketones Urine NEGATIVE (NEGATIVE); Leukocyte Esterase Urine NEGATIVE (NEGATIVE); Nitrite Urine NEGATIVE (NEGATIVE); Protein Urine NEGATIVE (NEG/TRACE); Specific Gravity Urine 1.015 (1.005-1.025); Urobilinogen Urine 0.2 EU/dL (0.2-1.0); pH Urine 7.5 (5.0-9.0)
[2023-12-19] MEDS: KETOROLAC TROMETHAMINE 30 MG/ML VIAL IVP (14:03)
[2023-12-19] MEDS: ORPHENADRINE 60 MG/ 2 ML VIAL IV (14:03)
[2023-12-19 14:08] LABS: Urine Microscopic Indicated NO
[2023-12-19 14:18] LABS: D Dimer 0.55 mg/L FEU (<=0.59); INR 0.99; Prothrombin Time 10.5 sec (9.0-11.6)
[2023-12-19 14:19] LABS: Internal Control Within Normal Limits; SARS-CoV-2 Ag NEGATIVE (NEGATIVE)
[2023-12-19 14:19] LABS: Influenza Virus A Antigen Negative; Influenza Virus B Antigen Negative; Internal Control Within Normal Limits
--- NOTE | 2023-12-19 14:21 | XR_ITS ---
The [address] [address] Patient Name: BHUPINDER ZIMMER MRN: [id number] date: 1965 Sex: M Assigned Patient Location: ER Current Patient Location: ER Accession/Order Number: [id number] Exam Date: 12/19/2023 14:20 Report Date: 12/19/2023 15:01 At the request of: EDWARD COLÓN Procedure: XR chest 1V EXAM: CHEST 1 VIEW HISTORY: Cough TECHNIQUE: Chest, one view. COMPARISON: 06/24/2023. FINDINGS: Slightly low lung volumes and vascular crowding and perihilar to lower lobe atelectasis. No focal consolidation, pleural effusion, or pneumothorax. Pulmonary vasculature is within normal limits. Cardiomediastinal silhouette is normal. XR/XR chest 1V IMPRESSION: 1. Expiratory chest without acute cardiopulmonary disease. Electronically authenticated by: RENEE GRACIA Date: 12/19/2023 15:01
--- NOTE | 2023-12-19 14:21 | CT_ITS ---
The [address] [address] Patient Name: BHUPINDER ZIMMER MRN: [id number] date: 1965 Sex: M Assigned Patient Location: ER Current Patient Location: ER Accession/Order Number: [id number] Exam Date: 12/19/2023 14:40 Report Date: 12/19/2023 15:02 At the request of: EDWARD COLÓN Procedure: CT abdomen pelvis wo con EXAM: CT scan of the abdomen and pelvis without contrast. Dose reduction technique used: Automated exposure control and/or adjustment of the mA and/or kV according to patient size and/or use of iterative reconstruction technique. REASON FOR EXAM: Right flank pain, hx stones COMPARISON: CT scan dated 04/27/2023 FINDINGS: Bilateral nonobstructing calyceal tip renal stones with the largest in the lower pole of the left kidney measuring up to 7 mm. Focal fatty infiltration along the falciform ligament. No ureteral or bladder calculi. No hydronephrosis. Normal appendix. No free fluid in the abdomen or pelvis. No free intraperitoneal air. No dilated or thickened loops of small bowel or colon. Liver, pancreas, spleen, bilateral kidneys, and bilateral adrenal glands are otherwise unremarkable within the limitations of noncontrast CT. No lymphadenopathy in the abdomen or pelvis. Remainder unremarkable. CT/CT abdomen pelvis wo con IMPRESSION: 1. No acute abnormalities in the abdomen or pelvis. 2. Bilateral nephrolithiasis. Electronically authenticated by: MATEO KENNEY Date: 12/19/2023 15:02
[2023-12-19 14:23] LABS: Alanine Aminotransferase 40 U/L (16-63); Albumin Globulin Ratio 0.8; Albumin Level 3.6 g/dL (3.4-5.0); Alkaline Phosphatase 133 U/L (46-116); Anion Gap 14.4; Aspartate Amino Transferase 22 U/L (15-37); BUN Creatinine Ratio 8.2; Bilirubin Total 0.2 mg/dL (0.2-1.0); Calcium 9.3 mg/dL (8.5-10.1); Carbon Dioxide 27.5 mmol/L (21.0-32.0); Chloride 105 mmol/L (98-107); Estimated GFR (African America >60 (>=60 mL/min/1.73m^2); Estimated GFR (Non-African Ame >60 (>=60 mL/min/1.73m^2); Globulin 4.3 g/dL; Glucose 98 mg/dL (74-106); Potassium 3.9 mmol/L (3.5-5.1); Sodium 143 mmol/L (136-145); Total Protein 7.9 g/dL (6.4-8.2); Troponin I High Sensitivity 4.3 pg/mL (4.0-76.1)
[2023-12-19 14:29] LABS: Lactate/Lactic Acid 2.8 mmol/L (0.4-2.0)
[2023-12-19] MEDS: 0.9 % SODIUM CHLORIDE 500 ML IV (15:03)
[2023-12-19] MEDS: HYDROCODONE/ACET 5-325 MG TABLET 1 TAB PO (15:16)
[2023-12-19 15:28] VITALS: BP 141/88; PULSE 77; O2SAT 99
== END 2023-12-19 15:33 | disposition home or self-care (01) ==
PROVIDERS: Physician Assistant; Emergency Provider Emergency Medicine
DX: R10.9 Unspecified abdominal pain (principal); Z87.442 Personal history of urinary calculi; Z20.822 Contact with and (suspected) exposure to COVID-19; R06.02 Shortness of breath
CPT/HCPCS: 36415; 71045; 74176; 80053; 81003; 83605; 83690; 83880; 84484; 85025; 85378; 85610; 87804; 87811; 93005; 96374; 96375; 99285; J1885; J2360

== ENCOUNTER 2024-06-14 21:12 | Emergency (ER) | payer OTHER, SELFPAY ==
[2024-06-14 21:20] VITALS: BP 127/88; PULSE 90; TEMP 36.9; O2SAT 98; BMI 25.2
--- OUTSIDE RECORDS SUMMARY | 2024-06-14 21:20 | XMS_ITS | CCD ---
Author Organization [facility] Team Providers Care Watch Caser Name Role Phone VIPIN TORRES Unavailable Unavailable EBENEZER WILSON Admitting Unavailable EBENEZER WILSON Attending Unavailable CHRISTELLE MUNIZ Referring Unavailable ROGER WANGER Primary Care Unavailable YOKO BURRIS Consulting Unavailable YOKO BURRIS Admitting Unavailable YOKO BURRIS Attending Unavailable FAWWAD, TANG Primary Care Unavailable MARKER, DR AGUAYO Consulting Unavailable MARKER, DR AGUAYO Admitting Unavailable MARKER, DR AGUAYO Attending Unavailable REQUEST, DR DAVIS LISTED Primary Care UnavailGlo Braynt Consulting Unavailable FAWWAD, TANG Primary Care Unavailable [...] Primary Care Unavailable LUCIANA BLISS Attending Unavailable NO PCP, NO PCP Primary Care Unavailable DEB MILLAN Attending Unavailable NO PCP, NO PCP Primary Care Unavailable SALIMA BRUCE Attending Unavailable NO PCP, NO PCP Primary Care Unavailable ALFREDO LEE Attending Unavailable NO PCP, NO PCP Primary Care Unavailable MATEO BANDA Referring Unavailable NO PCP, NO PCP Primary Care Unavailable NO PCP, NO PCP Primary Care Unavailable Allergies Allergy Classification Reported Allergen(s) Allergy Type Date of Onset Reaction(s) Facility (1 source) Penicillin Drug Allergy 05-30-2018 [facility] Repository (4 sources) Penicillins; Translations: [PENICILLINS] Drug allergy (disorder) 10-29-2015 [facility] Repository (2 sources) Ibuprofen; Translations: [IBUPROFEN] Drug Allergy 12-17-2015 [facility] Repository Problems Active Problems Problem Classification Problem Date Documented Date Episodic/Chronic Abdominal pain (5 sources) Unspecified abdominal pain; Translations: [Flank pain] Onset: 04-28-2021 Episodic Calculus of urinary tract (4 sources) Calculus of kidney; Translations: [CALCULUS OF KIDNEY] Onset: 05-23-2021 Episodic Genitourinary symptoms and ill-defined conditions (1 source) Dysuria; Translations: [Dysuria] Onset: 05-20-2024 Episodic Inflammatory conditions of male genital organs (1 source) Inflammatory disorders of scrotum; Translations: [Inflammatory disorders of scrotum] Onset: 04-26-2024 Episodic Other aftercare (1 source) Other long term acute care registered nurse (current) drug therapy; Translations: [OTH UPHOLSTERER OUTSIDE CURRENT DRUG THERAPY] Onset: 04-29-2021 Episodic Other skin disorders (1 source) Rash and other nonspecific skin eruption; Translations: [Rash and other nonspecific skin eruption] Onset: 03-25-2024 Episodic Spondylosis; intervertebral disc disorders; other back problems (3 sources) Other intervertebral disc degeneration, lumbosacral region; Translations: [Other intervertebral disc degeneration, lumbar region] Onset: 01-06-2021 Chronic Spondylosis; intervertebral disc disorders; other back problems (5 sources) Radiculopathy, lumbar region; Translations: [Lumbago with [...] PAIN, UNSPECIFIED] Onset: 01-06-2021 Unclassified (1 source) Insect Bite Onset: 04-26-2024 Unclassified (1 source) Rash Onset: 03-25-2024 Unclassified (1 source) Cold Like Symptoms Onset: 02-17-2024 Unclassified (1 source) Medical Screening Onset: 06-14-2023 Unclassified (1 source) Spasms Onset: 05-21-2023 Unclassified (1 source) EMS Onset: 05-17-2023 Unclassified (1 source) lower back pain that radiates down right leg x1 month Onset: 06-13-2023 Viral infection (2 sources) Viral infection, unspecified; Translations: [VIRAL INFECTION UNSPECIFIED] Onset: 04-29-2021 Episodic Past or Other Problems Problem Classification Problem Date Documented Da te Episodic/Chronic Cardiac dysrhythmias (1 source) Tachycardia, unspecified; Translations: [...] upper respiratory infection, unspecified] Onset: 07-03-2023 Episodic Substance-related disorders (1 source) Opioid use, unspecified with withdrawal; Translations: [Opioid use, unspecified with withdrawal] Onset: 05-17-2023 Episodic Unclassified (1 source) LOW BACK PAIN, UNSPECIFIED; Translations: [LOW BACK PAIN, UNSPECIFIED] Onset: 01-05-2021 Results Test Name Value Interpretation Reference Range Facility URINE CULTUREon 05-20-2024 Bacteria identified Cx Nom (U) SPECIMEN NOTES URINE RECEIVED WITHOUT PRESERVATIVE CULTURE RESULTS NO GROWTH AT <1000 CFU/mL Normal [facility] Comment on above: Performed By: #### 6 30-4 #### [facility] ([id number]) [address], [address] [place] [address] URN MACROSCOPIC NURon 2024 BILIRUBIN DEBORAH Negative Normal NEG [facility] Comment on above: Performed By: #### N UM #### [facility] ([id number]) [address] [place] [address] BLOOD/HGB DEBORAH Trace Abnormal NEG [facility] Comment on above: Performed By: #### N UM #### [facility] ([id number]) [address] [place] [address] GLUCOSE DEBORAH Negative Normal NEG [facility] Comment on above: Performed By: #### N UM #### [facility] ([id number]) [address] [place] [address] KETONES DEBORAH Negative Normal NEG [facility] Comment on above: Performed By: #### N UM #### [facility] ([id number]) [address] [place] [address] LEUKOCYTE ESTERASE DEBORAH Small Abnormal NEG [facility] Comment on above: Performed By: #### N UM #### [facility] ([id number]) [address] [place] [address] NITRITE DEBORAH Negative Normal NEG [facility] Comment on above: Performed By: #### N UM #### [facility] ([id number]) [address] [place] [address] PH DEBORAH 6.5 Normal 5.0-8.5 [facility] Comment on above: Performed By: #### N UM #### [facility] ([id number]) [address] [place] [address] PROTEIN DEBORAH Negative Normal NEG [facility] Comment on above: Performed By: #### N UM #### [facility] ([id number]) [address] [place] [address] SPECIFIC GRAVITY DEBORAH 1.020 Normal 1.003-1.035 [facility] Comment on above: Performed By: #### N UM #### [facility] ([id number]) [address] [place] [address] UROBILINOGEN DEBORAH 0.2 eu/dL Normal <1.1 [facility] Comment on above: Performed By: #### N UM #### [facility] ([id number]) [address] [place] [address] BLOOD CULTUREon 04-26-2024 Bacteria identified Aer cx Nom (Bld) CULTURE RESULTS NO GROWTH 5 DAYS Normal [facility] Bacteria identified Aer cx Nom (Bld) SPECIMEN NOTES SUBOPTIMAL VOLUME OF BLOOD COLLECTED, RESULTS MAY BE AFFECTED. CULTURE RESULTS NO GROWTH 5 DAYS Normal [facility] Comment on above: Performed By: #### C BCA, 08069-3, CMP, 5643-2, 56070-9, 2157- 6, 92187-5, 2639-3, 17782-8, THYR #### [facility] ([id number]) [address] [place] [address], [place] [address] CBC AND AUTO DIFFon 04-27-19 25 ABSOLUTE BASOPHIL 0.0 X10E9/L Normal 0.0-0.2 [facility] Comment on above: Performed By: #### Pawel KING CMP, 3039-04 #### [facility] ([id number]) [address] [place] [address] ABSOLUTE NEUTROPHIL 2.5 X10E9/L Normal 1.5-6.6 [facility] Comment on above: Performed By: #### Pawel KING CMP, 3039-04 #### [facility] ([id number]) [address] [place] [address]88 Basophils/100 WBC (Bld) 0.7 % Normal [facility] Comment on above: Performed By: #### Pawel KING CMP, 3039-04 #### [facility] ([id number]) [address] [place] [address]294 Eosinophils (Bld) [#/Vol] 0.4 10*3/uL Normal 0.0-0.4 [facility] Comment on above: Performed By: #### Pawel KING CMP, 3039-04 #### [facility] ([id number]) [address] [place] [address]3468 Eosinophils/100 WBC (Bld) 6.3 % Normal [facility] Comment on above: Performed By: #### Pawel KING CMP, 3039-04 #### [facility] ([id number]) [address] [place] [address]2017 Erythrocyte distribution width (RBC) [Ratio] 13.2 % Normal 11.5-15.0 [facility] Comment on above: Performed By: #### Pawel KING CMP, 3039-04 #### [facility] ([id number]) [address] [place] [address]50 Hematocrit (Bld) [Volume fraction] 41.3 % Normal 39-49 [facility] Comment on above: Performed By: #### Pawel KING CMP, 3040-3 #### [facility] ([id number]) [address] [place] [address] 05223 Hemoglobin (Bld) [Mass/Vol] 14.2 g/dL Normal 13.0-17.0 [facility] Comment on above: Performed By: #### Pawel KING CMP, 3039-3 #### [facility] ([id number]) [address] [place] [address] 67235 Lymphocytes (Bld) [#/Vol] 2.1 10*3/uL Normal 1.0-3.5 [facility] Comment on above: Performed By: #### Pawel KING CMP, 3 #### [facility] ([id number]) [address] [place] [address] 37017 Lymphocytes/100 WBC (Bld) 36.2 % Normal [facility] Comment on above: Performed By: #### Pawel KING CMP, 3 #### [facility] ([id number]) [address] [place] [address] 66406 MCH (RBC) [Entitic mass] 29.9 pg Normal 27-34 [facility] Comment on above: Performed By: #### Pawel KING CMP, 3039- #### [facility] ([id number]) [address] [place] [address] 36993 MCHC (RBC) [Mass/Vol] 34.4 g/dL Normal 32-36 [facility] Comment on above: Performed By: #### Pawel KING CMP, 3 #### [facility] ([id number]) [address] [place] [address] 12716 MCV (RBC) [Entitic vol] 87 fL Normal 80-100 [facility] Comment on above: Performed By: #### Pawel KING CMP, 3039-3 #### [facility] ([id number]) [address] [place] [address] Monocytes (Bld) [#/Vol] 0.8 10*3/uL Normal 0-0.9 [facility] Comment on above: Performed By: #### Pawel KING CMP, 3039-3 #### [facility] ([id number]) [address] [place] [address] 91042 Monocytes/100 WBC (Bld) 14.3 % Normal [facility] Comment on above: Performed By: #### Pawel KING CMP, 3039-04 #### [facility] ([id number]) [address] [place] [address] 71723 Neutrophils/100 WBC (Bld) 42.5 % Normal [facility] Comment on above: Performed By: #### Pawel KING CMP, 3039-04 #### [facility] ([id number]) [address] [place] [address] 13614 Platelet mean volume (Bld) [Entitic vol] 8.8 fL Normal 7-12 [facility] Comment on above: Performed By: #### Pawel KING CMP, 3039-04 #### [facility] ([id number]) [address] [place] [address] 93674 Platelets (Bld) [#/Vol] 233 10*3/uL Normal 150-450 [facility] Comment on above: Performed By: #### Pawel KING CMP, 3 #### [facility] ([id number]) [address] [place] [address] 32924 RBC COUNT 4.76 X10E12/L Normal 4.10-5.70 [facility] Comment on above: Performed By: #### Pawel KING CMP, 3039-04 #### [facility] ([id number]) [address] [place] [address] 50960 WBC (Bld) [#/Vol] 5.9 10*3/uL Normal 4.0-11.0 [facility] Comment on above: Performed By: #### C CHRISTINE, CMP, 3039-3 #### [facility] ([id number]) [address] [place] [address]38[address] COMPREHENSIVE METABOLIC PANE Trent 04-26-2024 Albumin [Mass/Vol] 3.9 g/dL Normal 3.2-5.3 [facility] Comment on above: Performed By: #### C CHRISTINE CMP, 3039-3 #### [facility] ([id number]) [address] [place] [address] 80702 ALP [Catalytic activity/Vol] 107 U/L Normal 39-130 [facility] Comment on above: Performed By: #### C CHRISTINE CMP, 3039-3 #### [facility] ([id number]) [address] [place] [address] 07769 ALT [Catalytic activity/Vol] 20 U/L Normal 0-40 [facility] Comment on above: Performed By: #### C CHRISTINE, CMP, 3039-3 #### [facility] ([id number]) [address] [place] [address] 71625 Anion gap [Moles/Vol] 8 mmol/L Normal 5-15 [facility] Comment on above: Performed By: #### C CHRISTINE CMP, 3039-3 #### [facility] ([id number]) [address] [place] [address] 13557 AST [Catalytic activity/Vol] 21 U/L Normal 0-41 [facility] Comment on above: Performed By: #### C BCA, CMP, 3039-3 #### [facility] ([id number]) [address] [place] [address] 92274 Bilirubin [Mass/Vol] 0.3 mg/dL Normal 0.3-1.2 [facility] Comment on above: Performed By: #### C BCA, CMP, 3039-3 #### [facility] ([id number]) [address] [place] [address] 82984 Calcium [Mass/Vol] 8.9 mg/dL Normal 8.5-10.5 [facility] Comment on above: Performed By: #### C ZEE KING, 3039-3 #### [facility] ([id number]) [address] [place] [address] 63074 Chloride [Moles/Vol] 100 mmol/L Normal 98-109 [facility] Comment on above: Performed By: #### Pawel KING CMP, 3 #### [facility] ([id number]) [address] [place] [address] 12187 CO2 [Moles/Vol] 27 mmol/L Normal 22-32 [facility] Comment on above: Performed By: #### Pawel KING CMP, 3 #### [facility] ([id number]) [address] [place] [address] 52017 Creatinine [Mass/Vol] 0.86 mg/dL Normal 0.70-1.20 [facility] Comment on above: Result Comment: METH OD TRACEABLE TO IDMS STANDARD Performed By: #### Pawel KING CMP, 3 #### [facility] ([id number]) [address] [place] [address] 90431 eGFR (CKD-EPI) NON-RACE DEPENDENT >90 Normal >59 [facility] Comment on above: Result Comment: Reported eGFR is based on the CKD-EPI 2020 equation that does not use a race coefficient. Performed By: #### C ZEE KING, 3039-3 #### [facility] ([id number]) [address] [place] [address] 35405 Glucose [Mass/Vol] 98 mg/dL Normal 65-99 [facility] Comment on above: Performed By: #### Pawel KING CMP, 3039-3 #### [facility] ([id number]) [address] [place] [address] 09881 Potassium [Moles/Vol] 3.8 mmol/L Normal 3.5-5.0 [facility] Comment on above: Performed By: #### C BCA CMP, 3040-3 #### [facility] ([id number]) [address] [place] [address] 83779 Protein [Mass/Vol] 8.2 g/dL High 6.0-8.0 [facility] Comment on above: Performed By: #### C CHRISTINE CMP, 3040-3 #### [facility] ([id number]) [address] [place] [address] 35526 Sodium [Moles/Vol] 135 mmol/L Normal 134-146 [facility] Comment on above: Performed By: #### C BCA CMP, 3040-3 #### [facility] ([id number]) [address] [place] [address] 87831 Urea nitrogen [Mass/Vol] 10 mg/dL Normal 5-23 [facility] Comment on above: Performed By: #### C BCA, CMP, 3040-3 #### [facility] ([id number]) [address] [place] [address] PELVIS W CONT[address] CT PELVIS W CONT CT PELVIS W CONT CT PELVIS W CONT HISTORY: Perianal abscess or fistula. Scrotal swelling COMPARISON STUDY: CT abdomen and pelvis 02/17/2024. TECHNIQUE: CT scan of the abdomen and pelvis performed with IV no oral contrast. 100 mL of Omnipaque 300 was injected intravenously without complication. Coronal and sagittal reformats generated and reviewed. All CT scans at this facility use dose modulation, iterative reconstruction, and/or weight based dosing when appropriate to reduce radiation dose to as low as reasonably achievable. FINDINGS: No dilated loops of bowel. Scattered colonic diverticula without diverticulosis. The appendix is unremarkable. The urinary bladder is unremarkable. No calculi in the distal ureters. No collecting system dilatation. Prostatomegaly. Atherosclerotic disease of the visualized vasculature without aneurysm. The abdominal wall is unremarkable. No acute osseous abnormality. Multilevel degenerative changes of the lower lumbar spine. No gluteal abscess or abnormality is visualized. No significant scrotal abnormality. Prominent inguinal lymph nodes, likely reactive or inflammatory. IMPRESSION: * No acute findings in the pelvis, by CT. No obvious gluteal abscess or other abnormality is visualized. If there is persistent scrotal swelling, scrotal ultrasound could be considered to further assess. * Prominent inguinal lymph nodes, likely reactive or inflammatory. Recommend follow-up CT in 3 months to reassess if clinical concern remains. Enlarged since prior study Approved by Resident Chidi Pope MD on 04/26/2024 4:16 PM I, Roni Saleem MD have personally reviewed the image(s) and agree with and/or edited the report Finalized by Roni Saleem MD on 04/26/2024 4:55 PM Normal [facility] Lactate (P anne-marie) [Moles/Vol]o n 04-26-2024 LACTATE W/REFLEX 1.2 mmol/L Normal 0.4-2.0 [facility] Comment on above: Result Comment: Result did not trigger repeat Lactate, re-order if needed. Performed By: #### C BCA, 75352-8, CMP, 5643-2, 87195-8, 2157-6, 83240-7, 2639-3, 98739-8, THYR #### [facility] ([id number]) [address] [place] [address] 86114 MAGNESIUMon 04-26-2024 Magnesium [Mass/Vol] 2.1 mg/dL Normal 1.8-2.6 [facility] Comment on above: Performed By: #### C CHRISTINE, CMP, 3040-3 #### [facility] ([id number]) [address] [place] [address] 07495 Procalcitonin IA [Mass/Vol]o n 04-26-2024 PROCALCITONIN <0.05 Normal <0.05 [facility] Comment on above: Result Comment: NOTE <0.50 ng/mL - Low risk of severe sepsis and/or septic shock. <2.00 ng/mL - Recommend retesting within 6-24 hours. >2.00 ng/mL - High risk of sepsis and/or septic shock. Performed By: #### C BCA, 42087-9, CMP, 5643-2, 63629-0, 2157-6, 94472-3, 2639-3, 32015-4, THYR #### [facility] ([id number]) [address] [place] [address] 82140 URINE CULTUREon 04-26-2024 Bacteria identified Cx Nom (U) CULTURE RESULTS 10-50,000 ORGANISMS/mL NORMAL UROGENITAL RIKI Normal [facility] Comment on above: Performed By: #### C BCA, 28152-1, CMP, 5643-2, 71845-6, 2157- 6, 06444-8, 2639-3, 73832-5, THYR #### [facility] ([id number]) [address] [place] [address] 27465 URN MACROSCOPIC NURon 2024 BILIRUBIN DEBORAH Negative Normal NEG [facility] Comment on above: Performed By: #### C BCA, 71912-7, CMP, 5643-2, 15099-6, 2157- 6, 62064-7, 2639-3, 07159-2, THYR #### [facility] ([id number]) [address] [place] [address] 93283 BLOOD/HGB DEBORAH Trace Abnormal NEG [facility] Comment on above: Performed By: #### C BCA, 96442-1, CMP, 5643-2, 90070-0, 2157- 6, 55804-0, 2639-3, 70050-7, THYR #### [facility] ([id number]) [address] [place] [address] 53038 GLUCOSE DEBORAH Negative Normal NEG [facility] Comment on above: Performed By: #### C BCA, 73598-6, CMP, 5643-2, 59889-6, 2157- 6, 93539-7, 2639-3, 66947-1, THYR #### [facility] ([id number]) [address] [place] [address] [place] [address] KETONES DEBORAH Negative Normal NEG [facility] Comment on above: Performed By: #### C BCA, 69770-5, CMP, 5643-2, 51915-1, 2157- 6, 52665-1, 2639-3, 90174-6, THYR #### [facility] ([id number]) [address] [place] [address] [place] [address] LEUKOCYTE ESTERASE DEBORAH Trace Abnormal NEG [facility] Comment on above: Performed By: #### C BCA, 88210-9, CMP, 5643-2, 97256-5, 2157- 6, 92303-8, 2639-3, 92779-7, THYR #### [facility] ([id number]) [address] [place] [address] [place] [address] NITRITE DEBORAH Negative Normal NEG [facility] Comment on above: Performed By: #### C BCA, 08560-3, CMP, 5643-2, 51622-4, 2157- 6, 37020-5, 2639-3, 62012-0, THYR #### [facility] ([id number]) [address] [place] [address] [place] [address] PH DEBORAH 7.0 Normal 5.0-8.5 [facility] Comment on above: Performed By: #### C BCA, 84469-2, CMP, 5643-2, 01218-9, 2157- 6, 87177-5, 2639-3, 37615-5, THYR #### [facility] ([id number]) [address] [place] [address] [place] [address] PROTEIN DEBORAH Trace Abnormal NEG [facility] Comment on above: Performed By: #### C BCA, 97514-1, CMP, 5643-2, 91006-9, 2157- 6, 43592-1, 2639-3, 96975-1, THYR #### [facility] ([id number]) [address] [place] [address] 64803 SPECIFIC GRAVITY DEBORAH 1.015 Normal 1.003-1.035 [facility] Comment on above: Performed By: #### C BCA, 75468-4, CMP, 5643-2, 42112-6, 2157- 6, 31687-6, 2639-3, 12737-0, THYR #### [facility] ([id number]) [address] [place] [address] 88736 UROBILINOGEN DEBORAH 0.2 eu/dL Normal <1.1 [facility] Comment on above: Performed By: #### C BCA, 83630-4, CMP, 5643-2, 45247-7, 2157- 6, 48878-6, 2639-3, 62068-0, THYR #### [facility] ([id number]) [address] [place] [address] 68601 BASIC METABOLIC PANLon 02-16 Anion gap [Moles/Vol] 11 mmol/L Normal 5-15 [facility] Comment on above: Performed By: #### C BCA, CMP, 3040-3 #### [facility] ([id number]) [address] [place] [address] 38491 Calcium [Mass/Vol] 9.7 mg/dL Normal 8.5-10.5 [facility] Comment on above: Performed By: #### C BCA, CMP, 3040-3 #### [facility] ([id number]) [address] [place] [address] 63301 Chloride [Moles/Vol] 103 mmol/L Normal 98-109 [facility] [facility] Comment on above: Performed By: #### C ZEE KING, 3040-3 #### [facility] ([id number]) [address] [place] [address] 91130 CO2 [Moles/Vol] 28 mmol/L Normal 22-32 [facility] Comment on above: Performed By: #### C ZEE KING, 3039-3 #### [facility] ([id number]) [address] [place] [address] 83888 Creatinine [Mass/Vol] 0.92 mg/dL Normal 0.70-1.20 [facility] Comment on above: Result Comment: METH OD TRACEABLE TO IDMS STANDARD Performed By: #### C ZEE KING, 3040-3 #### [facility] ([id number]) [address] [place] [address] 21406 eGFR (CKD-EPI) NON-RACE DEPENDENT >90 Normal >59 [facility] Comment on above: Result Comment: Reported eGFR is based on the CKD-EPI 2020 equation that does not use a race coefficient. Performed By: #### Pawel KING CMP, 3040-3 #### [facility] ([id number]) [address] [place] [address] 92023 Glucose [Mass/Vol] 118 mg/dL High 65-99 [facility] Comment on above: Performed By: #### Pawel KING CMP, 304-3 #### [facility] ([id number]) [address] [place] [address] 35838 Potassium [Moles/Vol] 4.4 mmol/L Normal 3.5-5.0 [facility] Comment on above: Performed By: #### Pawel KING CMP, 3040-3 #### [facility] ([id number]) [address] [place] [address] 71848 Sodium [Moles/Vol] 142 mmol/L Normal 134-146 [facility] Comment on above: Performed By: #### C BCA, CMP, 3039-3 #### [facility] ([id number]) [address] [place] [address] 92357 Urea nitrogen [Mass/Vol] 9 mg/dL Normal 5-23 [facility] Comment on above: Performed By: #### C BCA, CMP, 3039-3 #### [facility] ([id number]) [address] [place] [address] 67405 CBC AND AUTO DIFFon 02-16-19 25 ABSOLUTE BASOPHIL 0.0 X10E9/L Normal 0.0-0.2 [facility] Comment on above: Performed By: #### Pawel BCA, CMP, 3 #### [facility] ([id number]) [address] [place] [address] 10973 ABSOLUTE NEUTROPHIL 3.6 X10E9/L Normal 1.5-6.6 [facility] Comment on above: Performed By: #### Pawel BCA, CMP, 3039-3 #### [facility] ([id number]) [address] [place] [address] 04066 Basophils/100 WBC (Bld) 0.7 % Normal [facility] Comment on above: Performed By: #### Pawel BCA, CMP, 3039-3 #### [facility] ([id number]) [address] [place] [address] 01410 Eosinophils (Bld) [#/Vol] 0.3 10*3/uL Normal 0.0-0.4 [facility] Comment on above: Performed By: #### Pawel BCA, CMP, 3039-3 #### [facility] ([id number]) [address] [place] [address] 72166 Eosinophils/100 WBC (Bld) 4.5 % Normal [facility] Comment on above: Performed By: #### Pawel BCA, CMP, 3039-3 #### [facility] ([id number]) [address] [place] [address] 36619 Erythrocyte distribution width (RBC) [Ratio] 13.9 % Normal 11.5-15.0 [facility] Comment on above: Performed By: #### Pawel KING CMP, 3039-3 #### [facility] ([id number]) [address] [place] [address] 71039 Hematocrit (Bld) [Volume fraction] 43.2 % Normal 39-49 [facility] Comment on above: Performed By: #### Pawel KING CMP, 3 #### [facility] ([id number]) [address] [place] [address] 08752 Hemoglobin (Bld) [Mass/Vol] 15.0 g/dL Normal 13.0-17.0 [facility] Comment on above: Performed By: #### Pawel KING CMP, 3 #### [facility] ([id number]) [address] [place] [address] 63864 Lymphocytes (Bld) [#/Vol] 2.2 10*3/uL Normal 1.0-3.5 [facility] Comment on above: Performed By: #### Pawel KING CMP, 3 #### [facility] ([id number]) [address] [place] [address] 44189 Lymphocytes/100 WBC (Bld) 32.5 % Normal [facility] Comment on above: Performed By: #### Pawel KING CMP, 3 #### [facility] ([id number]) [address] [place] [address] 89015 MCH (RBC) [Entitic mass] 29.9 pg Normal 27-34 [facility] Comment on above: Performed By: #### Pawel KING CMP, 3039-3 #### [facility] ([id number]) [address] [place] [address] MCHC (RBC) [Mass/Vol] 34.6 g/dL Normal 32-36 [facility] Comment on above: Performed By: #### Pawel KING CMP, 3039-3 #### [facility] ([id number]) [address] [place] [address] 21179 MCV (RBC) [Entitic vol] 87 fL Normal 80-100 [facility] Comment on above: Performed By: #### Pawel KING CMP, 3039-04 #### [facility] ([id number]) [address] [place] [address] 40920 Monocytes (Bld) [#/Vol] 0.6 10*3/uL Normal 0-0.9 [facility] Comment on above: Performed By: #### Pawel KING CMP, 3039-04 #### [facility] ([id number]) [address] [place] [address] 48495 Monocytes/100 WBC (Bld) 8.4 % Normal [facility] Comment on above: Performed By: #### Pawel KING CMP, 3039-04 #### [facility] ([id number]) [address] [place] [address] 38655 Neutrophils/100 WBC (Bld) 53.9 % Normal [facility] Comment on above: Performed By: #### Pawel KING CMP, 3039-04 #### [facility] ([id number]) [address] [place] [address] 57443 Platelet mean volume (Bld) [Entitic vol] 8.9 fL Normal 7-12 [facility] Comment on above: Performed By: #### Pawel KING CMP, 3 #### [facility] ([id number]) [address] [place] [address] 34494 Platelets (Bld) [#/Vol] 250 10*3/uL Normal 150-450 [facility] Comment on above: Performed By: #### C CHRISTINE ZEE, 3040-3 #### [facility] ([id number]) [address] [place] [address] 60584 RBC COUNT 5.00 X10E12/L Normal 4.10-5.70 [facility] Comment on above: Performed By: #### C CHRISTINE ZEE, 3040-3 #### [facility] ([id number]) [address] [place] [address] 16492 WBC (Bld) [#/Vol] 6.7 10*3/uL Normal 4.0-11.0 [facility] Comment on above: Performed By: #### C CHRISTINE ZEE, 3040-3 #### [facility] ([id number]) [address] [place] [address]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 Normal 6.0-8.0 [facility] Comment on above: Performed By: #### C BCA, 52827-7, CMP, 5643-2, 12699-6, 2157- 6, 05298-9, 2639-3, 21616-0, THYR #### [facility] ([id number]) [address] [place] [address] 52210 Sodium [Moles/Vol] 134 mmol/L Normal 134-146 [facility] Comment on above: Performed By: #### C BCA, 78028-2, CMP, 5643-2, 77388-9, 2157- 6, 24144-5, 2639-3, 31963-5, THYR #### [facility] ([id number]) [address] [place] [address] 81586 Urea nitrogen [Mass/Vol] 22 mg/dL Normal 5-23 [facility] Comment on above: Performed By: #### C BCA, 07462-1, CMP, 5643-2, 73964-4, 2157- 6, 55513-6, 2639-3, 68528-9, THYR #### [facility] ([id number]) [address] [place] [address] 66819 DRUG SCREEN, URINEon 024 AMPHETAMINE/METHAMP Positive Abnormal NEG [facility] Comment on above: Result Comment: Conf irmation available upon request. AMPH/METH screening cut off = 1000 ng/mL Performed By: #### C BCA, CMP, 3040-3 #### [facility] ([id number]) [address] [place] [address] 01321 BARBITURATES Negative Normal NEG [facility] Comment on above: Result Comment: Shruthi iturates screening cut off value = 200 ng/mL Performed By: #### C CHRISTINE, [facility], 3040-3 #### [facility] ([id number]) [address] [place] [address] 39763 BENZODIAZEPINES Positive Abnormal NEG [facility] Comment on above: Result Comment: Conf irmation available upon request. Benzodiazepines screening cut off value = 200 ng/mL Performed By: #### C CHRISTINE, [facility], 3040-3 #### [facility] ([id number]) [address] [place] [address] 00115 CANNABINOIDS Positive Abnormal NEG [facility] Comment on above: Result Comment: Conf irmation available upon request. Cannabinoids/THC screening cut off value = 50 ng/mL Performed By: #### C CHRISTINE, [facility], 3039-3 #### [facility] ([id number]) [address] [place] [address] 13149 COCAINE METABOLITE Negative Normal NEG [facility] Comment on above: Result Comment: Coca ine screening cut off value = 300 ng/mL Performed By: #### C CHRISTINE, [facility], 0-3 #### [facility] ([id number]) [address] [place] [address] 66472 ECSTASY Negative Normal NEG [facility] Comment on above: Result Comment: Ecst asy screening cut off value = 500 ng/mL This report is intended for use in clinical monitoring or management of patients. Performed By: #### C CHRISTINE, [facility], 3040-3 #### [facility] ([id number]) [address] [place] [address] 24230 METHADONE Negative Normal NEG [facility] Comment on above: Result Comment: Meth adone screening cut off value = 300 ng/mL. Performed By: #### C CHRISTINE, CMP, 3040-3 #### [facility] ([id number]) [address] [place] [address] 14720 OPIATES Positive Abnormal NEG [facility] Comment on above: Result Comment: Conf irmation available upon request. Opiates screening cut off value = 300 ng/mL NOTE: This test is used for the detection of codeine, hydrocodone (>1000 ng/mL), morphine and hydromorphone (>900 ng/mL) in urine. Performed By: #### C CHRISTINE, [facility], 3040-3 #### [facility] ([id number]) [address] [place] [address] 16344 OXYCODONE Negative Normal NEG [facility] Comment on above: Result Comment: Oxyc odone screening cut off value = 300 ng/mL NOTE: This test is used for the detection of oxycodone and oxymorphone in urine. Performed By: #### C CHRISTINE, [facility], 3040-3 #### [facility] ([id number]) [address] [place] [address] 10292 PHENCYCLIDINE Negative Normal NEG [facility] Comment on above: Result Comment: Phen cyclidine screening cut off value = 25 ng/mL Performed By: #### C CHRISTINE, [facility], 3040-3 #### [facility] ([id number]) [address] [place] [address] 87811 ETHANOLon 05-22-2023 Ethanol [Mass/Vol] mg/dL Normal 0.00-0.08 [facility] Comment on above: Result Comment: This report is intended for use in clinical monitoring or management of patients. Performed By: #### C BCA, 34769-1, CMP, 5643-2, 97385-4, 2157-6, 52595-1, 2639-3, 25073-3, THYR #### [facility] ([id number]) [address] [place] [address] 68137 Intermediate Documentson 05-22-2023 Intermediate Documents [id number]# 1.00TIFF Normal Rigoberto [facility] Lactate (P anne-marie) [Moles/Vol]o n 05-22-2023 Lactate [Moles/Vol] 2.1 mmol/L High 0.4-2.0 [facility] Comment on above: Performed By: #### C BCA, CMP, 3040-3 #### [facility] ([id number]) [address] [place] [address] 72450 LACTATE W/REFLEX 5.0 mmol/L Critically high 0.4-2.0 [facility] Comment on above: Performed By: #### C BCA, 47658-7, CMP, 5643-2, 88236-9, 2157- 6, 55043-6, 2639-3, 75632-6, THYR #### [facility] ([id number]) [address] [place] [address] 75331 MAGNESIUMon 05-22-2023 Magnesium [Mass/Vol] 2.0 mg/dL Normal 1.8-2.6 [facility] Comment on above: Performed By: #### C BCA, 17115-6, CMP, 5643-2, 05774-1, 2157- 6, 98211-7, 2639-3, 99851-4, THYR #### [facility] ([id number]) [address] [place] [address] 99455 Myoglobin [Mass/Vol]on 05-21 SERUM MYOGLOBIN 49.9 ng/mL Normal 17.4-105.7 [facility] Comment on above: Performed By: #### C BCA, CMP, 3040-3 #### [facility] ([id number]) [address] [place] [address] 96273 Natriuretic peptide B [Mass/ Vol]on 04-16-2024 BRN NATRIURETIC PEP <5 Normal <100.0 [facility] Comment on above: Performed By: #### C BCA, 76634-8, CMP, 5643-2, 90389-2, 2157- 6, 26866-2, 2639-3, 43586-4, THYR #### [facility] ([id number]) [address] [place] [address] 94636 THYROID PROFILEon 05-22-2023 Free T4 [Mass/Vol] 1.17 ng/dL Normal 0.61-1.60 [facility] Comment on above: Performed By: #### C BCA, CMP, 3040-3 #### [facility] ([id number]) [address] [place] [address] 04608 TSH 3.43 uIU/mL Normal 0.49-4.67 [facility] Comment on above: Performed By: #### Pawel BCA, CMP, 0-3 #### [facility] ([id number]) [address] [place] [address] 58474 Troponin I.cardiac High sens itivity method [Mass/Vol]on 05-22-2023 1 HOUR TROP I, HIGH SENSITIVITY 2 ng/L Normal <21 [facility] Comment on above: Performed By: #### C BCA, CMP, 3040-3 #### [facility] ([id number]) [address] [place] [address] 82331 TROPONIN I, HIGH SENSITIVITY 3 ng/L Normal <21 [facility] Comment on above: Performed By: #### C BCA, CMP, 0-3 #### [facility] ([id number]) [address] [place] [address] 75923 URN MACROSCOPIC NURon 2023 BILIRUBIN DEBORAH Negative Normal NEG [facility] Comment on above: Performed By: #### C BCA, CMP, 3040-3 #### [facility] ([id number]) [address] [place] [address] [place] [address] BLOOD/HGB DEBORAH Negative Normal NEG [facility] Comment on above: Performed By: #### C ZEE KING, 3040-3 #### [facility] ([id number]) [address] [place] [address] [place] [address] GLUCOSE DEBORAH 500 mg/dL Abnormal NEG [facility] Comment on above: Performed By: #### C ZEE KING, 3039-3 #### [facility] ([id number]) [address] [place] [address] [place] [address] KETONES DEBORAH Negative Normal NEG [facility] Comment on above: Performed By: #### Pawel KING [facility], 3039-3 #### [facility] ([id number]) [address] [place] [address]258 LEUKOCYTE ESTERASE DEBORAH Negative Normal NEG [facility] Comment on above: Performed By: #### Pawel KING [facility], 3039-3 #### [facility] ([id number]) [address] [place] [address] NITRITE DEBORAH Negative Normal NEG [facility] Comment on above: Performed By: #### Pawel KING [facility], 3039-3 #### [facility] ([id number]) [address] [place] [address]236 PH DEBORAH 6.0 Normal 5.0-8.5 [facility] Comment on above: Performed By: #### Pawel KING [facility], 3040-3 #### [facility] ([id number]) [address] [place] [address] 11531 PROTEIN DEBORAH Negative Normal NEG [facility] Comment on above: Performed By: #### Pawel KING CMP, 3040-3 #### [facility] ([id number]) [address] [place] [address] [place] [address] SPECIFIC GRAVITY DEBORAH 1.015 Normal 1.003-1.035 [facility] Comment on above: Performed By: #### C BCA, CMP, 3039-3 #### [facility] ([id number]) [address] [place] [address] 13668 UROBILINOGEN DEBORAH 0.2 eu/dL Normal <1.1 [facility] Comment on above: Performed By: #### C BCA, CMP, 3039-3 #### [facility] ([id number]) [address] [place] [address] 74009 CBC AND AUTO DIFFon 05-17-19 24 ABSOLUTE BASOPHIL 0.1 X10E9/L Normal 0.0-0.2 [facility] Comment on above: Performed By: #### Pawel BCA, CMP, 3039-3 #### [facility] ([id number]) [address] [place] [address] 77783 ABSOLUTE NEUTROPHIL 3.9 X10E9/L Normal 1.5-6.6 [facility] Comment on above: Performed By: #### Pawel BCA, CMP, 3039-3 #### [facility] ([id number]) [address] [place] [address] 37931 Basophils/100 WBC (Bld) 1.1 % Normal [facility] Comment on above: Performed By: #### Pawel BCA, CMP, 3039-3 #### [facility] ([id number]) [address] [place] [address] 85905 Eosinophils (Bld) [#/Vol] 0.1 10*3/uL Normal 0.0-0.4 [facility] Comment on above: Performed By: #### Pawel BCA, CMP, 3039-3 #### [facility] ([id number]) [address] [place] [address] 77302 Eosinophils/100 WBC (Bld) 1.9 % Normal [facility] Comment on above: Performed By: #### Pawel BCA, CMP, 3040-3 #### [facility] ([id number]) [address] [place] [address] 31158 Erythrocyte distribution width (RBC) [Ratio] 13.5 % Normal 11.5-15.0 [facility] Comment on above: Performed By: #### Pawel KING CMP, 3039-3 #### [facility] ([id number]) [address] [place] [address] 47799 Hematocrit (Bld) [Volume fraction] 43.5 % Normal 39-49 [facility] Comment on above: Performed By: #### Pawel KNIG CMP, 3 #### [facility] ([id number]) [address] [place] [address] 81523 Hemoglobin (Bld) [Mass/Vol] 14.9 g/dL Normal 13.0-17.0 [facility] Comment on above: Performed By: #### Pawel KING CMP, 3 #### [facility] ([id number]) [address] [place] [address] 87175 Lymphocytes (Bld) [#/Vol] 1.4 10*3/uL Normal 1.0-3.5 [facility] Comment on above: Performed By: #### Pawel KING CMP, 3039-04 #### [facility] ([id number]) [address] [place] [address] 43533 Lymphocytes/100 WBC (Bld) 23.2 % Normal [facility] Comment on above: Performed By: #### Pawel KING CMP, 3 #### [facility] ([id number]) [address] [place] [address] 67071 MCH (RBC) [Entitic mass] 29.3 pg Normal 27-34 [facility] Comment on above: Performed By: #### Pawel KING CMP, 3039-3 #### [facility] ([id number]) [address] [place] [address] 94440 MCHC (RBC) [Mass/Vol] 34.2 g/dL Normal 32-36 [facility] Comment on above: Performed By: #### Pawel KING CMP, 3039-3 #### [facility] ([id number]) [address] [place] [address] 72688 MCV (RBC) [Entitic vol] 86 fL Normal 80-100 [facility] Comment on above: Performed By: #### Pawel KING CMP, 3039-04 #### [facility] ([id number]) [address] [place] [address] 11140 Monocytes (Bld) [#/Vol] 0.6 10*3/uL Normal 0-0.9 [facility] Comment on above: Performed By: #### Pawel KING CMP, 3039-04 #### [facility] ([id number]) [address] [place] [address] 40802 Monocytes/100 WBC (Bld) 9.2 % Normal [facility] Comment on above: Performed By: #### Pawel KING CMP, 3039- #### [facility] ([id number]) [address] [place] [address] 94919 Neutrophils/100 WBC (Bld) 64.6 % Normal [facility] Comment on above: Performed By: #### Pawel KING CMP, 3039-04 #### [facility] ([id number]) [address] [place] [address] 17504 Platelet mean volume (Bld) [Entitic vol] 8.2 fL Normal 7-12 [facility] Comment on above: Performed By: #### Pawel KING CMP, 3039- #### [facility] ([id number]) [address] [place] [address] 14227 Platelets (Bld) [#/Vol] 271 10*3/uL Normal 150-450 [facility] Comment on above: Performed By: #### C BCA, CMP, 3039-3 #### [facility] ([id number]) [address] [place] [address] 34378 RBC COUNT 5.07 X10E12/L Normal 4.10-5.70 [facility] Comment on above: Performed By: #### C CHRISTINE, CMP, 3039-3 #### [facility] ([id number]) [address] [place] [address] 55965 WBC (Bld) [#/Vol] 6.0 10*3/uL Normal 4.0-11.0 [facility] Comment on above: Performed By: #### C CHRISTINE, CMP, 3 #### [facility] ([id number]) [address] [place] [address] 53957 COMPREHENSIVE METABOLIC PANE Trent 05-17-2023 Albumin [Mass/Vol] 4.8 g/dL Normal 3.2-5.3 [facility] Comment on above: Performed By: #### C BCA, CMP, 3 #### [facility] ([id number]) [address] [place] [address] 65829 ALP [Catalytic activity/Vol] 103 U/L Normal 39-130 [facility] Comment on above: Performed By: #### C BCA, CMP, 3 #### [facility] ([id number]) [address] [place] [address] 28926 ALT [Catalytic activity/Vol] 35 U/L Normal 0-40 [facility] Comment on above: Performed By: #### C BCA, CMP, 3 #### [facility] ([id number]) [address] [place] [address] 67553 Anion gap [Moles/Vol] 5 mmol/L Normal 5-15 [facility] Comment on above: Performed By: #### C BCA, CMP, 3040-3 #### [facility] ([id number]) [address] [place] [address] 52600 AST [Catalytic activity/Vol] 23 U/L Normal 0-41 [facility] Comment on above: Performed By: #### C BCA, CMP, 3039-3 #### [facility] ([id number]) [address] [place] [address] 82760 Bilirubin [Mass/Vol] 0.6 mg/dL Normal 0.3-1.2 [facility] Comment on above: Performed By: #### C BCA, CMP, 3 #### [facility] ([id number]) [address] [place] [address] 24204 Calcium [Mass/Vol] 9.3 mg/dL Normal 8.5-10.5 [facility] Comment on above: Performed By: #### C BCA, CMP, 3 #### [facility] ([id number]) [address] [place] [address] 75342 Chloride [Moles/Vol] 107 mmol/L Normal 98-109 [facility] Comment on above: Performed By: #### C BCA, CMP, 3039-3 #### [facility] ([id number]) [address] [place] [address] 97973 CO2 [Moles/Vol] 25 mmol/L Normal 22-32 [facility] Comment on above: Performed By: #### C BCA, CMP, 3039-3 #### [facility] ([id number]) [address] [place] [address] 75003 Creatinine [Mass/Vol] 0.87 mg/dL Normal 0.70-1.20 [facility] Comment on above: Result Comment: METH OD TRACEABLE TO IDMS STANDARD Performed By: #### C BCA, CMP, 3039-3 #### [facility] ([id number]) [address] [place] [address] 07893 eGFR (CKD-EPI) NON-RACE DEPENDENT >90 Normal >59 [facility] Comment on above: Result Comment: Reported eGFR is based on the CKD-EPI 2020 equation that does not use a race coefficient. Performed By: #### C ZEE KING, 3040-3 #### [facility] ([id number]) [address] [place] [address] 42989 Glucose [Mass/Vol] 102 mg/dL High 65-99 [facility] Comment on above: Performed By: #### Pawel KING CMP, 0-3 #### [facility] ([id number]) [address] [place] [address] 90591 Potassium [Moles/Vol] 3.9 mmol/L Normal 3.5-5.0 [facility] Comment on above: Performed By: #### Pawel KING CMP, 3039-3 #### [facility] ([id number]) [address] [place] [address] 88282 Protein [Mass/Vol] 8.6 g/dL High 6.0-8.0 [facility] Comment on above: Performed By: #### Pawel KING [facility], 3040-3 #### [facility] ([id number]) [address] [place] [address] 72338 Sodium [Moles/Vol] 137 mmol/L Normal 134-146 [facility] Comment on above: Performed By: #### C ZEE KING, 3040-3 #### [facility] ([id number]) [address] [place] [address] 62017 Urea nitrogen [Mass/Vol] 16 mg/dL Normal 5-23 [facility] Comment on above: Performed By: #### Pawel KING CMP, 3040-3 #### [facility] ([id number]) [address] [place] [address] 85881 LIPASEon 05-17-2023 Lipase [Catalytic activity/Vol] 47 U/L High 17-40 [facility] Comment on above: Performed By: #### C BCA, [facility], 3040-3 #### [facility] ([id number]) [address] [facility] [place] [address] CT ABD/PELVIS WO CONon 05-23 CT ABD/PELVIS [...] IBAN MORTON Date: 2021-05-23 11:44 Normal [facility] LEAD,ADULTon 04-30-2021 Lead, Blood (Adult) 5 ug/dL Critically high 0-4 [facility] Comment on above: Result Comment: Anal ysis by inductively coupled plasma/mass spectrometry (ICP/MS) Environmental Exposure: WHO Recommendation <20 Occupational Exposure: OSHA Lead Std 40 MIGUEL A 30 . Detection Limit = 1 Performed By: #### L EADA #### [facility] [address] [place] [address] Dr. Kena Peterson CBC AUTO DIFFon 04-28-2021 BASO # 0.0 103/ul Normal 0.0-0.1 [facility] Comment on above: Performed By: #### C BC #### [facility] [address] [place] [address] Dr. Kena Peterson Basophils/100 WBC (Bld) 0.5 % Normal 0.2-2.0 [facility] Comment on above: Performed By: #### C BC #### [facility] [address] [place] [address] Dr. Kena Peterson EO # 0.4 103/ul Normal 0.0-0.7 [facility] Comment on above: Performed By: #### C BC #### [facility] [address] [place] [address] Dr. Kena Peterson Eosinophils/100 WBC (Bld) 4.5 % Normal 0.9-7.0 [facility] Comment on above: Performed By: #### C BC #### [facility] [address] [place] [address] Dr. Kena Peterson Erythrocyte distribution width (RBC) [Ratio] 12.2 % Normal 11.0-15.0 [facility] Comment on above: Performed By: #### C BC #### [facility] [address] [place] [address] Dr. Kena Peterson Hematocrit (Bld) [Volume fraction] 40.2 % Critically low 42.0-54.0 [facility] Comment on above: Performed By: #### C BC #### [facility] [address] [place] [address] Dr. Kena Peterson Hemoglobin (Bld) [Mass/Vol] 13.3 g/dL Critically low 14.0-18.0 [facility] Comment on above: Performed By: #### C BC #### [facility] [address] [place] [address] Dr. Kena Peterson IG # 0.02 10e3/ul Normal 0.00-0.03 [facility] Comment on above: Performed By: #### C BC #### [facility] [address] [place] [address] Dr. Kena Peterson IG % 0.2 % Normal 0.0-0.5 [facility] Comment on above: Performed By: #### C BC #### [facility] [address] [place] [address] Dr. Kena Peterson LYMPH # 2.3 103/ul Normal 1.2-3.8 [facility] Comment on above: Performed By: #### C BC #### [facility] [address] [place] [address] Dr. Kena Peterson Lymphocytes/100 WBC (Bld) 26.8 % Normal 20.5-60.0 [facility] Comment on above: Performed By: #### C BC #### [facility] [address] [place] [address] Dr. Kena Peterson MANUAL DIFF REQ NO Normal [facility] Comment on above: Performed By: #### C BC #### [facility] [address] [place] [address] Dr. Kena Peterson MCH (RBC) [Entitic mass] 29.3 pg Normal 25.9-34.0 [facility] Comment on above: Performed By: #### C BC #### [facility] [address] [place] [address] Dr. Kena Peterson MCHC (RBC) [Mass/Vol] 33.1 g/dL Normal 29.9-35.2 [facility] Comment on above: Performed By: #### C BC #### [facility] [address] [place] [address] Dr. Kena Peterson MCV (RBC) [Entitic vol] 88.5 fL Normal 80.0-94.0 [facility] Comment on above: Performed By: #### C BC #### [facility] [address] [place] [address] Dr. Kena Peterson MONO # 0.7 103/ul Normal 0.3-0.8 [facility] Comment on above: Performed By: #### C BC #### [facility] [address] [place] [address] Dr. Kena Peterson Monocytes/100 WBC (Bld) 7.7 % Normal 1.7-12.0 [facility] Comment on above: Performed By: #### C BC #### [facility] [address] [place] [address] Dr. Kena Peterson NEUT # 5.1 103/ul Normal 1.4-6.5 [facility] Comment on above: Performed By: #### C BC #### [facility] [address] [place] [address] Dr. Kena Peterson Neutrophils/100 WBC (Bld) 60.3 % Normal 43.0-75.0 [facility] Comment on above: Performed By: #### C BC #### [facility] [address] [place] [address] Dr. Kena Peterson Platelet mean volume (Bld) [Entitic vol] 9.9 fL Normal 9.5-13.5 [facility] Comment on above: Performed By: #### C BC #### [facility] [address] [place] [address] Dr. Kena Peterson PLT 215 103/ul Normal 150-450 [facility] Comment on above: Performed By: #### C BC #### [facility] [address] [place] [address] Dr. Kena Peterson RBC 4.54 106/ul Critically low 4.70-6.10 [facility] Comment on above: Performed By: #### C BC #### [facility] [address] [place] [address] Dr. Kena Peterson WBC 8.4 103/ul Normal 4.0-11.0 [facility] Comment on above: Performed By: #### C BC #### [facility] [address] [place] [address] Dr. Kena Peterson ER URINE PROFILEon 2 Bilirubin Ql (U) Negative Normal NEGATIVE [facility] Comment on above: Performed By: #### E RUR #### [facility] [address] [place] [address] Dr. Kena Peterson Clarity (U) CLEAR Normal CLEAR [facility] Comment on above: Performed By: #### E RUR #### [facility] [address] [place] [address] Dr. Kena Peterson Color (U) LT. YELLOW Normal YELLOW [facility] Comment on above: Performed By: #### E RUR #### [facility] [address] [place] [address] Dr. Kena SILVA A micrscopic examination will be performed if indicated. Normal [facility] Comment on above: Performed By: #### E RUR #### [facility] [address] [place] [address] Dr. Kena Peterson Glucose Ql (U) Negative Normal NEGATIVE [facility] Comment on above: Performed By: #### E RUR #### [facility] [address] [place] [address] Dr. Kena Peterson Hemoglobin Ql (U) Negative Normal NEGATIVE [facility] Comment on above: Performed By: #### E RUR #### [facility] [address] [place] [address] Dr. Knea Peterson Ketones Ql (U) Negative Normal NEGATIVE [facility] Comment on above: Performed By: #### E RUR #### [facility] [address] [place] [address] Dr. Kena Peterson LEUKOCYTES Negative Normal NEGATIVE [facility] Comment on above: Performed By: #### E RUR #### [facility] [address] [place] [address] Dr. Kena Peterson Nitrite Ql (U) Negative Normal NEGATIVE [facility] Comment on above: Performed By: #### E RUR #### [facility] [address] [place] [address] Dr. Kena Peterson pH (U) 7.0 [pH] Normal 5-9 [facility] Comment on above: Performed By: #### E RUR #### [facility] [address] [place] [address] Dr. Kena Peterson SPEC GRAVITY 1.010 Normal 1.005-<=1.025 [facility] Comment on above: Performed By: #### E RUR #### [facility] [address] [place] [address] Dr. Kena Peterson UA PROTEIN Negative Normal NEGATIVE/ TRACE [facility] Comment on above: Performed By: #### E RUR #### [facility] [address] [address] [address] Kena Peterson UR MICRO IND NOT INDICATED Normal [facility] Comment on above: Performed By: #### E RUR #### [facility] [address] [place] [address] Dr. Kena Peterson Urobilinogen Qn (U) 0.2 {Brian'U}/dL Normal 0.2 - 1. 0 [facility] Comment on above: Performed By: #### E RUR #### [facility] [address] [place] [address] Dr. Kena Peterson PROF CHEM 8 (BAS METB)on Anion gap [Moles/Vol] 11.4 mmol/L Normal [facility] Comment on above: Performed By: #### B MP #### [facility] [address] [place] [address] Dr. Kena Peterson Calcium [Mass/Vol] 8.8 mg/dL Normal 8.5-10.1 [facility] Comment on above: Performed By: #### B MP #### [facility] [address] [place] [address] Dr. Kena Peterson Chloride [Moles/Vol] 100 mmol/L Normal 98-107 [facility] Comment on above: Performed By: #### B MP #### [facility] [address] [place] [address] Dr. Kena Peterson CO2 [Moles/Vol] 31.9 mmol/L Critically high 22.0-30.0 [facility] Comment on above: Performed By: #### B MP #### [facility] [address] [address] [address] Kena Peterson Creatinine [Mass/Vol] 0.96 mg/dL Normal 0.66-1.25 [facility] Comment on above: Performed By: #### B MP #### [facility] [address] [address] [address] Kena Peterson EGFR-AF KAZAKH >60 Normal >=60 [facility] Comment on above: Performed By: #### B MP #### [facility] [address] [address] [address] Kena Peterson EGFR-NON AF KAZAKH >60 Normal >=60 [facility] Comment on above: Performed By: #### B MP #### [facility] [address] [address] [address] Kena Peterson Glucose [Mass/Vol] 101 mg/dL Normal 74-106 [facility] Comment on above: Performed By: #### B MP #### [facility] [address] [address] [address] Kena Peterson Potassium [Moles/Vol] 4.3 mmol/L Normal 3.4-5.0 [facility] Comment on above: Performed By: #### B MP #### [facility] [address] [place] [address] Dr. Kena Peterson Sodium [Moles/Vol] 139 mmol/L Normal 137-145 [facility] Comment on above: Performed By: #### B MP #### [facility] [address] [address] [address] Kena Peterson Urea nitrogen [Mass/Vol] 8.0 mg/dL Normal 7.0-18.0 [facility] Comment on above: Performed By: #### B MP #### [facility] [address] [address] [address] Kena Peterson Urea nitrogen/Creatinine [Mass ratio] 8.3 mg/mg Normal [facility] Comment on above: Performed By: #### B MP #### [facility] [address] [address] [address] Kena Peterson CBC AUTO DIFFon 01-12-2021 BASO # 0.0 103/ul Normal 0.0-0.1 [facility] Comment on above: Performed By: #### C BC #### [facility] [address] [address] [address] Kena Peterson Basophils/100 WBC (Bld) 0.4 % Normal 0.2-2.0 [facility] Comment on above: Performed By: #### C BC #### [facility] [address] [address] [address] Kena Peterson EO # 0.1 103/ul Normal 0.0-0.7 [facility] Comment on above: Performed By: #### C BC #### [facility] [address] [place] [address] Dr. Kena Peterson Eosinophils/100 WBC (Bld) 1.3 % Normal 0.9-7.0 [facility] Comment on above: Performed By: #### C BC #### [facility] [address] [place] [address] Dr. Kena Peterson Erythrocyte distribution width (RBC) [Ratio] 13.4 % Normal 11.0-15.0 [facility] Comment on above: Performed By: #### C BC #### [facility] [address] [place] [address] Dr. Kena Peterson Hematocrit (Bld) [Volume fraction] 41.1 % Critically low 42.0-54.0 [facility] Comment on above: Performed By: #### C BC #### [facility] [address] [place] [address] Dr. Kena Peterson Hemoglobin (Bld) [Mass/Vol] 13.5 g/dL Critically low 14.0-18.0 [facility] Comment on above: Performed By: #### C BC #### [facility] [address] [place] [address] Dr. Kena Peterson IG # 0.03 10e3/ul Normal 0.00-0.03 [facility] Comment on above: Performed By: #### C BC #### [facility] [address] [place] [address] Dr. Kena Peterson IG % 0.3 % Normal 0.0-0.5 [facility] Comment on above: Performed By: #### C BC #### [facility] [address] [place] [address] Dr. Kena Peterson LYMPH # 2.7 103/ul Normal 1.2-3.8 [facility] Comment on above: Performed By: #### C BC #### [facility] [address] [place] [address] Dr. Kena Peterson Lymphocytes/100 WBC (Bld) 29.4 % Normal 20.5-60.0 [facility] Comment on above: Performed By: #### C BC #### [facility] [address] [place] [address] Dr. Kena Peterson MANUAL DIFF REQ NO Normal [facility] Comment on above: Performed By: #### C BC #### [facility] [address] [place] [address] Dr. Kena Peterson MCH (RBC) [Entitic mass] 28.9 pg Normal 25.9-34.0 [facility] Comment on above: Performed By: #### C BC #### [facility] [address] [place] [address] Dr. Kena Peterson MCHC (RBC) [Mass/Vol] 32.8 g/dL Normal 29.9-35.2 [facility] Comment on above: Performed By: #### C BC #### [facility] [address] [place] [address] Dr. Kena Peterson MCV (RBC) [Entitic vol] 88.0 fL Normal 80.0-94.0 [facility] Comment on above: Performed By: #### C BC #### [facility] [address] [place] [address] Dr. Kena Peterson MONO # 0.6 103/ul Normal 0.3-0.8 [facility] Comment on above: Performed By: #### C BC #### [facility] [address] [place] [address] Dr. Kena Peterson Monocytes/100 WBC (Bld) 6.9 % Normal 1.7-12.0 [facility] Comment on above: Performed By: #### C BC #### [facility] [address] [place] [address] Dr. Kena Peterson NEUT # 5.7 103/ul Normal 1.4-6.5 [facility] Comment on above: Performed By: #### C BC #### [facility] [address] [place] [address] Dr. Kena Peterson Neutrophils/100 WBC (Bld) 61.7 % Normal 43.0-75.0 [facility] Comment on above: Performed By: #### C BC #### [facility] [address] [place] [address] Dr. Kena Peterson Platelet mean volume (Bld) [Entitic vol] 10.5 fL Normal 9.5-13.5 [facility] Comment on above: Performed By: #### C BC #### [facility] [address] [place] [address] Dr. Kena Peterson PLT 268 103/ul Normal 150-450 [facility] Comment on above: Performed By: #### C BC #### [facility] [address] [place] [address] Dr. Kena Peterson RBC 4.67 106/ul Critically low 4.70-6.10 [facility] Comment on above: Performed By: #### C BC #### [facility] [address] [place] [address] Dr. Kena Peterson WBC 9.2 103/ul Normal 4.0-11.0 [facility] Comment on above: Performed By: #### C BC #### [facility] [address] [place] [address] Dr. Kena Peterson PROF 14(COMP METB)on 021 Albumin [Mass/Vol] 3.9 g/dL Normal 3.5-5.0 [facility] Comment on above: Performed By: #### C MP #### [facility] [address] [place] [address] Dr. Kena Peterson Albumin/Globulin [Mass ratio] 1.0 {ratio} Normal [facility] Comment on above: Performed By: #### C MP #### [facility] [address] [place] [address] Dr. Kena Peterson ALP [Catalytic activity/Vol] 89 U/L Normal 38-126 [facility] Comment on above: Performed By: #### C MP #### [facility] [address] [address] [address] Kena Peterson ALT [Catalytic activity/Vol] 32 U/L Normal 21-72 [facility] Comment on above: Performed By: #### C MP #### [facility] [address] [address] [address] Kena Peterson Anion gap [Moles/Vol] 13.8 mmol/L Normal [facility] Comment on above: Performed By: #### C MP #### [facility] [address] [place] [address] Dr. Kena Peterson AST [Catalytic activity/Vol] 12 U/L Critically low 17-59 [facility] Comment on above: Performed By: #### C MP #### [facility] [address] [place] [address] Dr. Kena Peterson Bilirubin [Mass/Vol] 0.1 mg/dL Critically low 0.2-1.3 [facility] Comment on above: Performed By: #### C MP #### [facility] [address] [place] [address] Dr. Kena Peterson Calcium [Mass/Vol] 9.5 mg/dL Normal 8.4-10.2 [facility] Comment on above: Performed By: #### C MP #### [facility] [address] [address] [address] Kena Peterson Chloride [Moles/Vol] 107 mmol/L Normal 98-107 [facility] Comment on above: Performed By: #### C MP #### [facility] [address] [place] [address] Dr. Kena Peterson CO2 [Moles/Vol] 30.0 mmol/L Normal 22.0-30.0 [facility] Comment on above: Performed By: #### C MP #### [facility] [address] [address] [address] Kena Peterson Creatinine [Mass/Vol] 0.74 mg/dL Normal 0.66-1.25 [facility] Comment on above: Performed By: #### C MP #### [facility] [address] [address] [address] Kena Peterson EGFR-AF KAZAKH >60 Normal >=60 [facility] Comment on above: Performed By: #### C MP #### [facility] [address] [address] [address] Kena Peterson EGFR-NON AF KAZAKH >60 Normal >=60 [facility] Comment on above: Performed By: #### C MP #### [facility] [address] [address] [address] Kena Peterson Globulin (S) [Mass/Vol] 3.9 g/dL Normal [facility] Comment on above: Performed By: #### C MP #### [facility] [address] [address] [address] Kena Peterson Glucose [Mass/Vol] 144 mg/dL Critically high 74-106 [facility] Comment on above: Performed By: #### C MP #### [facility] [address] [address] [address] Kena Peterson Potassium [Moles/Vol] 3.8 mmol/L Normal 3.4-5.0 [facility] Comment on above: Performed By: #### C MP #### [facility] [address] [address] [address] Kena Peterson Protein [Mass/Vol] 7.8 g/dL Normal 6.1-8.2 [facility] Comment on above: Performed By: #### C MP #### [facility] [address] [address] [address] Kena Peterson Sodium [Moles/Vol] 147 mmol/L Critically high 137-145 [facility] Comment on above: Performed By: #### C MP #### [facility] [address], [place] [address] Dr. Kena Peterson Urea nitrogen [Mass/Vol] 9.0 mg/dL Normal 9.0-20.0 [facility] Comment on above: Performed By: #### C MP #### [facility] [address] [place], [place] [address] Dr. Kena Peterson Urea nitrogen/Creatinine [Mass ratio] 12.2 mg/mg Normal [facility] Comment on above: Performed By: #### C MP #### [facility] [address] [place], [place] [address] LSPINE WO CONon [...] by: GLO ANGELA Date: 2021-01-05 00:59 Normal [facility] ARTERIAL BLOOD GAS W/COOXon 05-30-2018 BASE EXCESS 1 mmol/L Normal -2-3 [facility] Comment on above: Performed By: #### 4 0055 #### [facility] [address] [place] [address], [facility] COHB 1.9 % High 0.0-1.5 [facility] Comment on above: Performed By: #### 4 0055 #### [facility] [address] [place] [address], [facility] DELIVERY SYSTEMS VENTILATOR Normal [facility] Comment on above: Performed By: #### 4 0055 #### [facility] [address] [place] [address], [place] FIO2 100 % Normal [facility] Comment on above: Performed By: #### 4 0055 #### [facility] [address] [place] [address], [facility] HCO3 (Bld) [Moles/Vol] 27 mmol/L Normal 21-28 [facility] Comment on above: Performed By: #### 4 0055 #### [facility] [address] [place] [address], [place] METHB 0.9 % Normal 0.0-1.5 [facility] Comment on above: Performed By: #### 4 0055 #### [facility] [address] [place] [address], [place] MIN VOLUME 7.[address] [facility] Comment on above: Performed By: #### 4 0055 #### [facility] [address] [place] [address], [place] MODALITY AC-ASSIST CONTROL Normal [facility] Comment on above: Performed By: #### 4 0055 #### [facility] [address] [place] [address], [place] Oxygen (Bld) [Partial pressure] 75 mm[Hg] Low 83-108 [facility] Comment on above: Performed By: #### 4 0055 #### [facility] [address] [place] [address], [facility] Oxygen saturation in Blood 93.1 % Low 94.0-97.0 [facility] Comment on above: Performed By: #### 4 0055 #### [facility] [address] [place] [address], [facility] PCO2 47 mmHg High 35-45 [facility] Comment on above: Performed By: #### 4 0055 #### [facility] [address] [place] [address], [facility] PEEP 8.0 CMH20 Normal [facility] Comment on above: Performed By: #### 4 0055 #### [facility] [address] [place] [address], [facility] pH (Bld) 7.36 [pH] Normal 7.35-7.45 [facility] Comment on above: Result Comment: BRADFORD LIND NOTE: Effective 04/09/18, reference ranges for Respiratory GEM analyzers running arterial blood have been updated to reflect the weather forcaster's published reference ranges. Performed By: #### 4 0055 #### [facility] [address] [facility] [place] [address], [facility] THB 13.4 g/dL Normal 12.0-16.3 [facility] Comment on above: Performed By: #### 4 0055 #### [facility] [address] [facility] [place] [place] [address], [facility] TIDAL VOLUME (VT) CC 500 cc Normal [facility] Comment on above: Performed By: #### 4 0055 #### [facility] [address] [place] [address], [facility] BASIC METABOLIC PANELon -2 Calcium [Mass/Vol] 9.2 mg/dL Normal 8.6-10.3 [facility] Comment on above: Order Comment: No: D o not add to previous draw Performed By: #### 4 1000, [id number], 50968 #### [facility] [address] [place] [address], [place] Chloride [Moles/Vol] 109 mmol/L High 98-107 [facility] Comment on above: Order Comment: No: D o not add to previous draw Performed By: #### 4 1000, 94886, 95688 #### [facility] [address] [place] [address], [place] CO2 [Moles/Vol] 25 mmol/L Normal 21-31 [facility] Comment on above: Order Comment: No: D o not add to previous draw Performed By: #### 4 999, 04992, 82596 #### [facility] [address] [place] [address], [place] Creatinine [Mass/Vol] 0.78 mg/dL Normal 0.70-1.30 [facility] Comment on above: Order Comment: No: D o not add to previous draw Performed By: #### 4 999, 40181, 96470 #### [facility] [address] [place] [address], [place] GFR/1.73 sq M predicted among blacks MDRD (S/P/Bld) [Vol rate/Area] mL/min/{1.73_m2} Normal >60 [facility] Comment on above: Order Comment: No: D o not add to previous draw Performed By: #### 4 999, 64077, 74679 #### [facility] [address] [place] [address], [place] GFR/1.73 sq M predicted among non-blacks MDRD (S/P/Bld) [Vol rate/Area] mL/min/{1.73_m2} Normal >60 [facility] Comment on above: Order Comment: No: D o not add to previous draw Performed By: #### 4 999, 52908, 46918 #### [facility] [address] [place] [address], [place] Glucose [Mass/Vol] 102 mg/dL High 70-100 The [facility] Comment on above: Order Comment: No: D o not add to previous draw Performed By: #### 4 999, 84775, 64531 #### [facility] [address] [facility] [place] [address], [facility] Potassium [Moles/Vol] 4.3 mmol/L Normal 3.5-5.1 [facility] Comment on above: Order Comment: No: D o not add to previous draw Performed By: #### 4 999, 13148, 70582 #### [facility] [address] [facility] [place] [address], [facility] Sodium [Moles/Vol] 143 mmol/L Normal 136-145 The [facility] Comment on above: Order Comment: No: D o not add to previous draw Performed By: #### 4 999, 87370, 35948 #### [facility] [address] [facility]. [address] Urea nitrogen [Mass/Vol] 6 mg/dL Low 7-25 [facility] Comment on above: Order Comment: No: D o not add to previous draw Performed By: #### 4 999, 43241, 49873 #### [facility] [address] [facility] [place] [address], [facility] CBC W/DIFFon 05-30-2018 ABS BASOPHILS 0.0 10*3/uL Normal 0.0-0.2 The [facility] Comment on above: Performed By: #### 5 0103 #### [facility] [address] [facility] [place] [address], [facility] ABS IMM GRANS 0.1 10*3/uL Normal 0.0-0.2 The [facility] Comment on above: Performed By: #### 5 0103 #### [facility] [address] [place] [address], [facility] ABS NEUTROPHILS 8.7 10*3/uL High 1.6-7.6 The [facility] Comment on above: Performed By: #### 5 0103 #### [facility] [address] [place] [address], [facility] Basophils/100 WBC (Bld) 0.4 % Normal 0.0-1.0 [facility] Comment on above: Performed By: #### 5 0103 #### [facility] [address] [place] [address], [facility] Eosinophils (Bld) [#/Vol] 0.1 10*3/uL Normal 0.0-0.5 [facility] Comment on above: Performed By: #### 5 0103 #### [facility] [address] [facility] [place] [address], [facility] Eosinophils/100 WBC (Bld) 0.5 % Normal 0.0-6.0 [facility] Comment on above: Performed By: #### 5 0103 #### [facility] [address] [facility] Erythrocyte distribution width (RBC) [Ratio] 12.8 % Normal 11.5-15.0 [facility] Comment on above: Performed By: #### 5 0103 #### [facility] [address] [place] [address], [facility] Hematocrit (Bld) [Volume fraction] 39.5 % Normal 39.0-50.0 [facility] Comment on above: Performed By: #### 5 0103 #### [facility] [address] [place] [address], [facility] Hemoglobin (Bld) [Mass/Vol] 13.1 g/dL Normal 13.0-17.0 [facility] Comment on above: Performed By: #### 5 0103 #### [facility] [address] [place] [address], [facility] IMMATURE GRANS 0.7 % Normal 0.0-1.0 The [facility] Comment on above: Performed By: #### 3 #### [facility] [address] [place] [address], [facility] Lymphocytes (Bld) [#/Vol] 1.6 10*3/uL Normal 1.2-4.0 [facility] Comment on above: Performed By: #### 3 #### [facility] [address] [facility] [place] [place] [address], [facility] Lymphocytes/100 WBC (Bld) 14.6 % Low 20.0-45.0 [facility] Comment on above: Performed By: #### 3 #### [facility] [address] [facility] [place] [place] [address], [facility] MCH (RBC) [Entitic mass] 29.2 pg Normal 27.0-33.0 [facility] Comment on above: Performed By: #### 3 #### [facility] [address] [facility] MCHC (RBC) [Mass/Vol] 33.2 g/dL Normal 32.0-35.0 [facility] Comment on above: Performed By: #### 102 #### [facility] [address] [facility] [place] [place] [address], [facility] MCV (RBC) [Entitic vol] 88.2 fL Normal 82.0-98.0 [facility] Comment on above: Performed By: #### 5 3 #### [facility] [address] [facility] [place] [place] [address], [facility] Monocytes (Bld) [#/Vol] 0.7 10*3/uL Normal 0.1-1.0 [facility] Comment on above: Performed By: #### 3 #### [facility] [address] [place] [address], [facility] MONOS 6.2 % Normal 5.0-12.0 [facility] Comment on above: Performed By: #### 102 #### [facility] [address] [place] [address], [facility] Neutrophils/100 WBC (Bld) 77.6 % High 40.0-72.0 [facility] Comment on above: Performed By: #### 5 3 #### [facility] [address] [facility] [place] [address], [facility] Nucleated RBC/100 WBC (Bld) [Ratio] 0 % Normal 0-0 [facility] Comment on above: Performed By: #### 5 0103 #### [facility] [address] [facility] [place] [address], [facility] PLAT CNT 206 10*3/uL Normal 150-400 The [facility] Comment on above: Performed By: #### 5 0103 #### [facility] [address] [facility] [place] [address], [facility] RBC (Bld) [#/Vol] 4.48 10*6/uL Normal 4.20-5.[address] [facility] Comment on above: Performed By: #### 5 0103 #### [facility] [address] [facility] [place] [address], [facility] WBC (Bld) [#/Vol] 11.25 10*3/uL High 4.00-10.60 [facility] Comment on above: Performed By: #### 5 102 #### [facility] [address] [facility]. [address] ABDOMEN AND PELVIS W CONT RASTon 05-30-2018 CT ABDOMEN AND PELVIS W CONTRAST [facility] Department of Radiology [address] [place] [address] Patient Name: ROMAINE ZIMMER : 1965 Sex: M Age: Race: White Pt. Location: [facility] Patient Status: O Ordered Date: 05/30/2018 10:00:00 [...] L5-S1. Electronically signed by:Nina Meza. Transcribed by: [email or web address], User Resident: Electronically Signed by: NINA MEZA @ 05/30/2018 11:42 AM Normal [facility] Comment on above: Order Comment: R/O L iver/Spleen Trauma CTA CHESTon 05-30-2018 CTA CHEST [facility] Department of Radiology [address] [place] [id number] Patient Name: ROMAINE ZIMMER : 1965 Sex: M Age: Race: White Pt. Location: [facility] Patient Status: O Ordered Date: 05/30/2018 10:05:00 [...] spondylosis. Electronically signed by:Alejandra Pryor. Transcribed by: [email or web address], User Resident: Electronically Signed by: ALEJANDRA PRYOR @ 05/30/2018 11:39 AM Normal [facility] Comment on above: Order Comment: Other , trauma MAGNESIUM BLOODon 05-30-2018 Magnesium [Mass/Vol] 1.8 mg/dL Low 1.9-2.7 [facility] Comment on above: Order Comment: No: D o not add to previous draw Performed By: #### 4 1000, 59656, 28687 #### [facility] [address] [place] [address], [facility] PAIN MANAGEMENT DRUG PANEL 2 [id number] 05-30-2018 6-ACETYLMORPHINE Not Detected Normal [facility] Comment on above: Order Comment: Please call [employer] at [phone] for Tour Production Supervisor consultation or assistance with interpretation if needed. 7-AMINOCLONAZEPAM Not Detected Normal [facility] Comment on above: Order Comment: Please call [facility] at [phone] for Tour Production Supervisor consultation or assistance with interpretation if needed. ALPRAZOLAM Not Detected Normal [facility] Comment on above: Order Comment: Please call [facility] at [phone] for Tour Production Supervisor consultation or assistance with interpretation if needed. AMPHETAMINE Not Detected Normal [facility] Comment on above: Order Comment: Please call [facility] at [phone] for Tour Production Supervisor consultation or assistance with interpretation if needed. [id number] Not Detected Normal The [facility] Comment on above: Order Comment: Please call [facility] at [phone] for Tour Production Supervisor consultation or assistance with interpretation if needed. BARITURATES Not Detected Normal [facility] Comment on above: Order Comment: Please call [facility] at [phone] for Tour Production Supervisor consultation or assistance with interpretation if needed. Benzoylecgonine Ql (U) Not Detected Normal The [facility] Comment on above: Order Comment: Please call [facility] at [phone] for Tour Production Supervisor consultation or assistance with interpretation if needed. BUPRENORPHINE Not Detected Normal [facility] Comment on above: Order Comment: Please call [facility] at [phone] for Tour Production Supervisor consultation or assistance with interpretation if needed. CARISOPRODOL Not Detected Normal The [facility] Comment on above: Order Comment: Please call [facility] at [phone] for Tour Production Supervisor consultation or assistance with interpretation if needed. Result Comment: The carisoprodol immunoassay has cross-reactivity to carisoprodol and meprobamate. CLONAZEPAM Not Detected Normal [facility] Comment on above: Order Comment: Please call [facility] at [phone] for Tour Production Supervisor consultation or assistance with interpretation if needed. CODEINE URINE Not Detected Normal [facility] Comment on above: Order Comment: Please call [facility] at [phone] for Tour Production Supervisor consultation or assistance with interpretation if needed. CREATININE URINE 37.8 mg/dL Normal 20.0-400.0 [facility] Comment on above: Order Comment: Please call [facility] at [phone] for Tour Production Supervisor consultation or assistance with interpretation if needed. DIAZEPAM Not Detected Normal The [facility] Comment on above: Order Comment: Please call [facility] at [phone] for Tour Production Supervisor consultation or assistance with interpretation if needed. EER PAIN MGT DRUG PANEL, HIGH RES See Note Normal The [facility] Comment on above: Order Comment: Please call [facility] at [phone] for Tour Production Supervisor consultation or assistance with interpretation if needed. Result Comment: Acce ss PeerJ Enhanced Report using either link below: -Direct access: [email or web address] -Enter Username, Password: [email or web address] Username: [email or web address]: [email or web address] Performed by [employer], [address] [place] [id number] [email or web address], Bowen Mathis MD - Lab. Director ETHYL GLUCURONIDE Not Detected Normal The [facility] Comment on above: Order Comment: Please call [facility] at [phone] for Tour Production Supervisor consultation or assistance with interpretation if needed. FENTANYL Present Normal [facility] Comment on above: Order Comment: Please call [facility] at [phone] for Tour Production Supervisor consultation or assistance with interpretation if needed. HYDROCODONE Not Detected Normal The [facility] Comment on above: Order Comment: Please call [facility] at [phone] for Tour Production Supervisor consultation or assistance with interpretation if needed. HYDROMORPHONE Not Detected Normal The [facility] Comment on above: Order Comment: Please call [facility] at [phone] for Tour Production Supervisor consultation or assistance with interpretation if needed. LORAZEPAM Present Normal [facility] Comment on above: Order Comment: Please call [email or web address] at [phone] for Tour Production Supervisor consultation or assistance with interpretation if needed. MARIJUANA METABOLITE Present Normal [facility] Comment on above: Order Comment: Please call [facility] at [phone] for Tour Production Supervisor consultation or assistance with interpretation if needed. MDA Not Detected Normal [facility] Comment on above: Order Comment: Please call [facility] at [phone] for Tour Production Supervisor consultation or assistance with interpretation if needed. MDEA- POLI Not Detected Normal [facility] Comment on above: Order Comment: Please call [facility] at [phone] for Tour Production Supervisor consultation or assistance with interpretation if needed. MDMA- ECSTASY Not Detected Normal [facility] Comment on above: Order Comment: Please call [facility] at [phone] for Tour Production Supervisor consultation or assistance with interpretation if needed. MEPERIDINE Not Detected Normal [facility] Comment on above: Order Comment: Please call [facility] at [phone] for Tour Production Supervisor consultation or assistance with interpretation if needed. Methadone Ql (U) Not Detected Normal [facility] Comment on above: Order Comment: Please call [facility] at [phone] for Tour Production Supervisor consultation or assistance with interpretation if needed. METHAMPHETAMINE Not Detected Normal [facility] Comment on above: Order Comment: Please call [facility] at [phone] for Tour Production Supervisor consultation or assistance with interpretation if needed. METHYLPHENIDATE Not Detected Normal [facility] Comment on above: Order Comment: Please call [facility] at [phone] for Tour Production Supervisor consultation or assistance with interpretation if needed. MIDAZOLAM Not Detected Normal [facility] Comment on above: Order Comment: Please call [facility] at [phone] for Tour Production Supervisor consultation or assistance with interpretation if needed. MORPHINE Present Normal [facility] Comment on above: Order Comment: Please call [facility] at [phone] for Tour Production Supervisor consultation or assistance with interpretation if needed. NORBUPRENORPHINE Not Detected Normal [facility] Comment on above: Order Comment: Please call [facility] at [phone] for Tour Production Supervisor consultation or assistance with interpretation if needed. NORDIAZEPAM Not Detected Normal [facility] Comment on above: Order Comment: Please call [facility] at [phone] for Tour Production Supervisor consultation or assistance with interpretation if needed. NORFENTANYL Present Normal [facility] Comment on above: Order Comment: Please call [facility] at [phone] for Tour Production Supervisor consultation or assistance with interpretation if needed. NORHYDROCODONE Not Detected Normal [facility] Comment on above: Order Comment: Please call [facility] at [phone] for Tour Production Supervisor consultation or assistance with interpretation if needed. NOROXYCODONE Not Detected Normal [facility] Comment on above: Order Comment: Please call [facility] at [phone] for Tour Production Supervisor consultation or assistance with interpretation if needed. NOROXYMORPHONE Not Detected Normal [facility] Comment on above: Order Comment: Please call [facility] at [phone] for Tour Production Supervisor consultation or assistance with interpretation if needed. OXAZEPAM Not Detected Normal [facility] Comment on above: Order Comment: Please call [facility] at [phone] for Tour Production Supervisor consultation or assistance with interpretation if needed. OXYCODONE Not Detected Normal [facility] Comment on above: Order Comment: Please call [facility] at [phone] for Tour Production Supervisor consultation or assistance with interpretation if needed. OXYMORPHONE Not Detected Normal [facility] Comment on above: Order Comment: Please call [facility] at [phone] for Tour Production Supervisor consultation or assistance with interpretation if needed. PAIN MANAGEMENT DRUG PANEL See Below Normal [facility] Comment on above: Order Comment: Please call [facility] at [phone] for Tour Production Supervisor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
--- NOTE | 2024-06-14 21:43 | ED.GENADUL1 ---
HPI HPI - General Adult General Chief complaint: Back Pain/Injury Stated complaint: BACK AND GROIN PAIN, PAINFUL URINARTION Time Seen by Provider: 06/14/24 21:27 Source: patient Mode of arrival: walk-in Limitations: no limitations History of Present Illness HPI narrative: history of kidney stones. Presents complaining of right flank pain into his groin. When he urinated felt like he was passing something gritty. No dysuria or hematuria. no fever or chills Related Data Previous Rx's ?Medication ?Instructions ?Recorded ketorolac 10 mg tablet 10 mg PO TID PRN pain #10 tabs 12/19/23 methocarbamol 750 mg tablet 750 mg PO TID PRN pain #20 tabs 12/19/23 methylprednisolone 4 mg tablets in See Rx Instructions .Route 12/19/23 a dose pack (Medrol (Fredrick)) .COMPLEX #21 ea Allergies Allergy/AdvReac Type Severity Reaction Status Date / Time Penicillins Allergy Severe SWALLOWING Verified 06/14/24 21:26 PROBLEM Opioid HPI Opioid Management Most Recent Opioid Data: Last Pain Scale 9 Today, 22:19 Last MAR Pain Assessment Today, 22:19 Ur Phencyclidine Scrn, (NEGATIVE) Negative 06/24/23, 03:15 Review of Systems ROS Status of ROS 10 or more systems reviewed and unremarkable except as noted in history and below PFSH PFSH Social History Little interest or pleasure in doing things: not at all Feeling down, depressed, or hopeless: not at all Exam Constitutional Vital Signs, click to edit/add: Last Vital Signs Temp 98.5 F 06/14/24 21:20 Pulse 90 06/14/24 21:20 Resp 16 06/14/24 21:20 BP 127/88 06/14/24 21:20 Pulse Ox 98 06/14/24 21:20 O2 Del Method Room Air 06/14/24 21:20 Common normals: no apparent distress, average body habitus, oriented x3, no limitations, healthy appearing, alert and well nourished [facility] Common normals: normocephalic and head/scalp atraumatic Eye Common normals: EOMs intact bilaterally and conjunctivae normal Respiratory Common normals: normal respiratory effort, no retractions, no use of accessory muscles and clear to auscultation bilaterally Cardio Common normals: regular rate, regular rhythm, S1 normal heart sound and S2 normal heart sound GI Common normals: Normal to inspection, nondistended, normoactive bowel sounds present, soft to palpation and non-tender Back & Pelvis General back: CVA tenderness CVA tenderness: right (mild) Extremity Common normals: normal to inspection and full ROM Neuro Common normals: oriented x3, CN's II-XII intact bilaterally, moves all extremities and no focal motor deficits Psych Appearance: grossly normal Course Vital Signs Vital signs: Vital Signs Temperature 98.5 F 06/14/24 21:20 Pulse Rate 90 06/14/24 21:20 Respiratory Rate 16 06/14/24 21:20 Blood Pressure 127/88 06/14/24 21:20 Pulse Oximetry 98 06/14/24 21:20 Oxygen Delivery Method Room Air 06/14/24 21:20 Temperature 98.5 F 06/14/24 21:20 Pulse Rate 90 06/14/24 21:20 Respiratory Rate 16 06/14/24 21:20 Blood Pressure 127/88 06/14/24 21:20 Pulse Oximetry 98 06/14/24 21:20 Oxygen Delivery Method Room Air 06/14/24 21:20 Medical Decision Making MDM Narrative Medical decision making narrative: patient presents concerned about possible kidney stones. Has past history of stones. No fever or systemic symptoms. UA positive. WBC and BMP WNL. CT without obstructive stones. does demonstrate bladder wall thickening that can be seen in underdistentention or cystitis. Will treat as Cystitis Lab Data Labs: Lab Results 06/14/24 06/14/24 Range/Units 21:41 21:45 WBC 8.4 (4.0-11.0) 10^3/uL RBC 4.96 (4.70-6.10) 10^6/uL Hgb 14.1 (14.0-18.0) g/dL Hct 42.5 (42.0-54.0) % MCV 85.7 (80.0-94.0) fL MCH 28.4 (25.9-34.0) pg MCHC 33.2 (29.9-35.2) g/dL RDW 12.8 (11.0-15.0) % Plt Count 302 (150-450) 10^3/uL MPV 10.0 (9.5-13.5) fL Neut % (Auto) 52.2 (43.0-75.0) % Lymph % (Auto) 32.9 (20.5-60.0) % Florence % (Auto) 10.0 (1.7-12.0) % Eos % (Auto) 4.2 (0.9-7.0) % Baso % (Auto) 0.5 (0.2-2.0) % Neut # (Auto) 4.4 (1.4-6.5) 10^3/uL Lymph # (Auto) 2.8 (1.2-3.8) 10^3/uL Florence # (Auto) 0.8 (0.3-0.8) 10^3/uL Eos # (Auto) 0.4 (0.0-0.7) 10^3/uL Baso # (Auto) 0.0 (0.0-0.1) 10^3/uL Abs Immat Gran (auto) 0.02 (0.00-0.03) 10^3/uL Imm/Tot Granulo (auto) 0.2 (0.0-0.5) % Sodium 140 (136-145) mmol/L Potassium 3.8 (3.5-5.1) mmol/L Chloride 99 (98-107) mmol/L Carbon Dioxide 32.5 H (21.0-32.0) mmol/L Anion Gap 12.3 BUN 12.0 (7.0-18.0) mg/dL Creatinine 1.05 (0.70-1.30) mg/dL Est GFR ( Amer) >60 (>=60 mL/min/1.73m^2) Est GFR (Non-Af Amer) >60 (>=60 mL/min/1.73m^2) BUN/Creatinine Ratio 11.4 Glucose 104 (74-106) mg/dL Calcium 9.6 (8.5-10.1) mg/dL Urine Color Yellow (YELLOW) Urine Clarity Clear (CLEAR) Urine pH 6.0 (5.0-9.0) Ur Specific Nu Mine 1.025 (1.005-1.025) Urine Protein Trace (NEG/TRACE) mg/dL Urine Glucose (UA) Negative (NEGATIVE) mg/dL Urine Ketones Negative (NEGATIVE) mg/dL Urine Occult Blood Small A (NEGATIVE) Urine Nitrite Negative (NEGATIVE) Urine Bilirubin Negative (NEGATIVE) Urine Urobilinogen 0.2 (0.2-1.0) EU/dL Ur Leukocyte Esterase Trace A (NEGATIVE) Urine RBC None seen (0-2) #/HPF Urine WBC 10-20 A (NONE SEEN) #/HPF Ur Squamous Epith Cells Few A (NONE/RARE) #/LPF Urine Crystals None seen (None Seen) #/HPF Urine Bacteria None seen (NONE SEEN) #/HPF Urine Casts None seen (NONE SEEN) #/LPF Urine Mucus Small A (NONE SEEN) Ur Culture Indicated? Yes-[facility] Discharge Plan Discharge Chief Complaint: Back Pain/Injury Clinical Impression: Cystitis Patient Disposition: Home, Self-Care Prescriptions / Home Meds: No Action ketorolac 10 mg tablet 10 mg PO TID PRN (Reason: pain) Qty: 10 0RF methocarbamol 750 mg tablet 750 mg PO TID PRN (Reason: pain) Qty: 20 0RF methylprednisolone [Medrol (Fredrick)] 4 mg tablets,dose pack See Rx Instructions .ROUTE .COMPLEX Qty: 21 0RF Rx Instructions: Taper as directed Print Language: Libyan Instructions: Urinary Tract Infection in Men (ED) Additional Instructions: drink plenty of fluids and follow up with your family doctor next week for recheck Referrals: Physician,Non-Staff, MD [Primary Care Provider] - 1 week
[2024-06-14 21:52] LABS: Bilirubin Urine NEGATIVE (NEGATIVE); Blood Urine SMALL (NEGATIVE); Clarity Urine CLEAR (CLEAR); Color Urine YELLOW (YELLOW); Glucose Urine UA NEGATIVE (NEGATIVE); Ketones Urine NEGATIVE (NEGATIVE); Leukocyte Esterase Urine TRACE (NEGATIVE); Nitrite Urine NEGATIVE (NEGATIVE); Protein Urine TRACE mg/dL (NEG/TRACE); Specific Gravity Urine 1.025 (1.005-1.025); Urobilinogen Urine 0.2 EU/dL (0.2-1.0)
[2024-06-14 21:53] LABS: Basophils Percent Auto 0.5 % (0.2-2.0); Eosinophils Absolute Auto 0.4 10^3/uL (0.0-0.7); Eosinophils Percent Auto 4.2 % (0.9-7.0); Hematocrit 42.5 % (42.0-54.0); Hemoglobin 14.1 g/dL (14.0-18.0); Immature Granulocytes Abs Auto 0.02 10^3/uL (0.00-0.03); Immature Granulocytes Pct Auto 0.2 % (0.0-0.5); Lymphocytes Absolute Auto 2.8 10^3/uL (1.2-3.8); Lymphocytes Percent Auto 32.9 % (20.5-60.0); Mean Corpuscular HGB Conc 33.2 g/dL (29.9-35.2); Mean Corpuscular Hemoglobin 28.4 pg (25.9-34.0); Mean Corpuscular Volume 85.7 fL (80.0-94.0); Monocytes Absolute Auto 0.8 10^3/uL (0.3-0.8); Neutrophils Absolute Auto 4.4 10^3/uL (1.4-6.5); Neutrophils Percent Auto 52.2 % (43.0-75.0); Platelet Count 302 10^3/uL (150-450); Red Blood Count 4.96 10^6/uL (4.70-6.10); Red Cell Distribution Width 12.8 % (11.0-15.0); White Blood Count 8.4 10^3/uL (4.0-11.0)
[2024-06-14 22:01] LABS: Anion Gap 12.3; BUN Creatinine Ratio 11.4; Calcium 9.6 mg/dL (8.5-10.1); Carbon Dioxide 32.5 mmol/L (21.0-32.0); Chloride 99 mmol/L (98-107); Estimated GFR (African America >60 (>=60 mL/min/1.73m^2); Estimated GFR (Non-African Ame >60 (>=60 mL/min/1.73m^2); Glucose 104 mg/dL (74-106); Potassium 3.8 mmol/L (3.5-5.1); Sodium 140 mmol/L (136-145)
[2024-06-14 22:01] LABS: Bacteria Urine NONE SEEN #/HPF (NONE SEEN); Cast Seen? NONE SEEN #/LPF (NONE SEEN); Crystals Seen? None Seen #/HPF (None Seen); Mucus Urine SMALL (NONE SEEN); RBC Urine NONE SEEN #/HPF (0-2); Squamous Epithelial Cell Urine FEW #/LPF (NONE/RARE); Urine Culture Indicated YES-FRMC
[2024-06-14] MEDS: 0.9 % SODIUM CHLORIDE 1,000 ML 999 ML IV (22:06)
[2024-06-14] MEDS: KETOROLAC TROMETHAMINE 30 MG/ML VIAL IVP (22:19)
[2024-06-14] MEDS: SULFAMETHOXAZOLE/TRIMETHOPRIM 800-160 MG TABLET 1 TAB PO (23:33)
[2024-06-14 23:34] VITALS: BP 122/84; PULSE 71; O2SAT 100
== END 2024-06-14 23:34 | disposition home or self-care (01) ==
PROVIDERS: Emergency Provider Internal Medicine
DX: N30.90 Cystitis, unspecified without hematuria (principal); Z87.442 Personal history of urinary calculi
CPT/HCPCS: 36415; 74176; 80048; 81001; 85025; 87086; 96374; 99285; J1885